=== PATIENT | male | born 1950 | race Caucasian/White ===

== ENCOUNTER → 2020-07-07 14:09 | Outpatient (BNVA) | payer MEDICARE, MEDICAID, SELFPAY | PROVIDERS: Family Provider Nurse Practitioner Family; PCP Nurse Practitioner Family; Visit Provider Urology | DX: R97.20 Elevated prostate specific antigen [PSA] (principal); R31.0 Gross hematuria | CPT/HCPCS: 81001; 84153 ==

== ENCOUNTER 2020-07-16 15:49 | Outpatient (CLI) | payer MEDICARE, MEDICAID, SELFPAY ==
[2020-07-16 16:26] LABS: Basophils % 0.4 %; Eosinophils # 0.2 10^3/uL (0.0-0.8); Eosinophils % 1.9 %; Hematocrit 44.2 % (42.0-52.0); Hemoglobin 14.7 g/dL (11.7-16.6); Lymphocytes # 3.1 10^3/uL (0.8-4.8); Lymphocytes % 27.5 %; Mean Corpuscular HGB Conc 33.3 g/dL (30.0-36.0); Mean Corpuscular Hemoglobin 31.5 pg (28.0-34.0); Mean Corpuscular Volume 94.8 fL (80-94); Mean Platelet Volume 10.2 fL (7.4-10.4); Monocytes # 0.9 10^3/uL (0.2-0.9); Monocytes % 7.7 %; Neutrophils # 7.06 10^3/uL (1.8-7.7); Neutrophils % 62.1 %; Nucleated Red Blood Cells % 0 %; Platelet Count 331 10^3/cmm (130-400); Red Blood Count 4.66 10^6/uL (4.1-5.3); Red Cell Distribution Width 12.8 % (12.1-15.1); White Blood Count 11.4 10^3/uL (4.0-10.0)
[2020-07-16 16:57] LABS: Alanine Aminotransferase 14 U/L (0-41); Albumin Level 4.3 g/dL (3.5-5.2); Alkaline Phosphatase 53 IU/L (40-130); Anion Gap 16.2 (5-19); Aspartate Amino Transferase 12 U/L (0-40); Blood Urea Nitrogen 17 mg/dL (8-23); Calcium 8.8 mg/dL (8.5-10.5); Carbon Dioxide 22 mmol/L (22-29); Chloride 104 mmol/L (98-107); Globulin 2.5 g/dL (1.3-4.6); Glomerular Filtration Rate 84.2 mL/min (90-130); Glucose 119 mg/dL (65-115); Osmolality Calculated 284 mOsm/kg (285-295); Potassium 4.2 mmol/L (3.5-5.1); Sodium 138 mmol/L (136-145); Thyroid Stimulating Hormone 3.33 uIU/mL (0.27-4.20); Total Bilirubin 0.2 mg/dL (0.15-1.2); Total Protein 6.8 g/dL (6.6-8.7)
== END 2020-07-16 15:50 | disposition home or self-care (01) ==
LOC: LAB 15:51
PROVIDERS: PCP Nurse Practitioner Family; Visit Provider Nurse Practitioner Family
DX: J44.9 Chronic obstructive pulmonary disease, unspecified (principal)
CPT/HCPCS: 80053; 84443; 85025

== ENCOUNTER 2020-09-02 15:50 | Outpatient (CLI) | payer MEDICARE, MEDICAID, SELFPAY ==
[2020-09-02 16:18] LABS: Basophils # 0.1 10^3/uL (0.0-0.1); Basophils % 0.5 %; Eosinophils # 0.2 10^3/uL (0.0-0.8); Eosinophils % 1.7 %; Hematocrit 49.1 % (42.0-52.0); Hemoglobin 16.1 g/dL (11.7-16.6); Lymphocytes # 3.7 10^3/uL (0.8-4.8); Lymphocytes % 29.8 %; Mean Corpuscular HGB Conc 32.8 g/dL (30.0-36.0); Mean Corpuscular Hemoglobin 31.5 pg (28.0-34.0); Mean Corpuscular Volume 96.1 fL (80-94); Mean Platelet Volume 10.8 fL (7.4-10.4); Monocytes # 0.9 10^3/uL (0.2-0.9); Monocytes % 7.4 %; Nucleated Red Blood Cells % 0 %; Platelet Count 299 10^3/cmm (130-400); Red Blood Count 5.11 10^6/uL (4.1-5.3); Red Cell Distribution Width 12.9 % (12.1-15.1); White Blood Count 12.5 10^3/uL (4.0-10.0)
[2020-09-02 17:30] LABS: Estmated Average Glucose 105; Hemoglobin A1C 5.3 % (4.0-6.0)
[2020-09-02 20:10] LABS: Anion Gap 22.4 (5-19); Blood Urea Nitrogen 12 mg/dL (8-23); Carbon Dioxide 21 mmol/L (22-29); Chloride 101 mmol/L (98-107); Chol HDL Ratio 2.74 mg/dL (1.0-5.00); Cholesterol 137 mg/dL (0-200); Glomerular Filtration Rate 66.6 mL/min (90-130); Glucose 113 mg/dL (65-115); HDL Cholesterol 50 mg/dL (60-100); LDL Cholesterol Calculated 72 mg/dL (50-129); LDL HDL Ratio 1.44 RATIO (0.00-3.22); Osmolality Calculated 291 mOsm/kg (285-295); Potassium 4.4 mmol/L (3.5-5.1); Sodium 140 mmol/L (136-145); Thyroid Stimulating Hormone 4.65 uIU/mL (0.27-4.20); Triglycerides 74 mg/dL (0-150)
== END 2020-09-02 15:51 | disposition home or self-care (01) ==
LOC: LAB 15:54
PROVIDERS: PCP Nurse Practitioner Family; Visit Provider Nurse Practitioner Family
DX: R73.01 Impaired fasting glucose (principal); Z13.6 Encounter for screening for cardiovascular disorders; J44.9 Chronic obstructive pulmonary disease, unspecified
CPT/HCPCS: 80048; 80061; 83036; 84443; 85025

== ENCOUNTER 2020-09-11 14:15 | Outpatient (CLI) | payer MEDICARE, MEDICAID, SELFPAY ==
--- NOTE | 2020-09-11 14:22 | CT_ITS ---
WS: [id number] LDCT LUNG CANCER SCREENING TECHNIQUE: Noncontrast CT of the chest with coronal and sagittal reformatted images. CLINICAL INFORMATION: NICOTINE DEPENDENCE,CIGARETTES COMPARISON: CT chest May 11, 2018 DLP: 66.75 mGy.cm DIvol: 1.[address] scans at [facility] use at least one of these dose optimization techniques: automat ed exposure control; mA and/or kV adjustment per patient size (includes targeted exams where dose is matched to clinical indication); or iterative reconstruction. FINDINGS: Moderate to advanced chronic emphysematous changes. Subsegmental atelectasis in the lung bases. Fibro sis in the lung apices. Calcific granuloma left lower lobe. Slight tree-in-bud nodularity in the lung bases unchanged since 2018. Noncalcified nodule left lower lobe measuring 5 mm. Aortic calcification . No mediastinal or hilar lymphadenopathy. Left hepatic cysts. CT/CT lung screening [id number] IMPRESSION: LUNG-RADS: 2-Benign Appearance or Behavior FOLLOW UP: 12 Month: Continue annual screening with LDCT
== END 2020-09-11 14:16 | disposition home or self-care (01) ==
LOC: RAD 14:21
PROVIDERS: PCP Nurse Practitioner Family; Visit Provider Nurse Practitioner Family
DX: Z12.2 Encounter for screening for malignant neoplasm of respiratory organs (principal); F17.210 Nicotine dependence, cigarettes, uncomplicated
CPT/HCPCS: G0297

== ENCOUNTER → 2021-03-04 14:31 | Outpatient (BNVA) | payer MEDICARE, MEDICAID, SELFPAY | PROVIDERS: PCP Nurse Practitioner Family; Visit Provider Internal Medicine Critical Care Medicine | DX: J44.9 Chronic obstructive pulmonary disease, unspecified (principal) | CPT/HCPCS: 87635 ==

== ENCOUNTER 2021-03-08 11:00 | Outpatient (CLI) | payer MEDICARE, MEDICAID, SELFPAY | END 2021-03-08 11:01 | disposition home or self-care (01) | LOC: SLEEP 03-09 12:48 | PROVIDERS: PCP Nurse Practitioner Family; Visit Provider Internal Medicine Critical Care Medicine | DX: J96.11 Chronic respiratory failure with hypoxia (principal); J44.9 Chronic obstructive pulmonary disease, unspecified | CPT/HCPCS: 94010; 94618; 94726; 94729; 94762 ==

== ENCOUNTER 2021-03-08 13:00 | Outpatient (CLI) | payer MEDICARE, MEDICAID, SELFPAY ==
--- NOTE | 2021-03-08 13:34 | PFTS_ITS ---
Date of Study:03/08/21 Date of Dictation: MECHANICS: Forced vital capacity (FVC) is reduced. Forced expiratory volume in one second (FEV1) is reduced. FEV1/FVC is reduced. FLOW VOLUME LOOP: Reduced flow at all lung volumes with significant scooping. LUNG VOLUMES: Total lung capacity (TLC) is normal. Residual volume (RV) is increased. DIFFUSING CAPACITY FOR CARBON MONOXIDE: Severely reduced. INTERPRETATION: The pulmonary function tests are consistent with very severe airflow obstruction. No postbronchodilator spirometry was performed. Lung volumes are consistent with air trapping. Gas exchange (DLCO) is severely reduced. MTDD
[2021-03-08 13:36] VITALS: BP 136/92
== END 2021-03-08 13:01 | disposition home or self-care (01) ==
LOC: RT 13:01
PROVIDERS: PCP Nurse Practitioner Family; Visit Provider Internal Medicine Critical Care Medicine
DX: J96.11 Chronic respiratory failure with hypoxia (principal); J44.9 Chronic obstructive pulmonary disease, unspecified
CPT/HCPCS: 94010; 94618; 94726; 94729

== ENCOUNTER → 2021-04-14 14:08 | Outpatient (BNVA) | payer MEDICARE, MEDICAID, SELFPAY | PROVIDERS: PCP Nurse Practitioner Family; Visit Provider Urology | DX: N40.0 Benign prostatic hyperplasia without lower urinary tract symptoms (principal); R97.20 Elevated prostate specific antigen [PSA] | CPT/HCPCS: 81003 ==

== ENCOUNTER → 2022-02-02 14:15 | Outpatient (BNVA) | payer MEDICARE, MEDICAID, SELFPAY | PROVIDERS: PCP Nurse Practitioner Family; Visit Provider Internal Medicine Critical Care Medicine | DX: J44.9 Chronic obstructive pulmonary disease, unspecified (principal); J96.11 Chronic respiratory failure with hypoxia; F17.210 Nicotine dependence, cigarettes, uncomplicated | CPT/HCPCS: 99213 ==

== ENCOUNTER → 2022-04-19 14:19 | Outpatient (BNVA) | payer MEDICARE, MEDICAID, SELFPAY | PROVIDERS: PCP Nurse Practitioner Family; Visit Provider Urology | DX: R97.20 Elevated prostate specific antigen [PSA] (principal) | CPT/HCPCS: 99213 ==

== ENCOUNTER 2022-04-22 11:27 | Outpatient (CLI) | payer MEDICARE, MEDICAID, SELFPAY ==
--- NOTE | 2022-04-22 11:36 | CT_ITS ---
WS: [id number] LDCT LUNG CANCER SCREENING TECHNIQUE: Noncontrast CT of the chest with coronal and sagittal reformatted images. CLINICAL INFORMATION: NICOTINE DEPENDENCE,CIGARETTES COMPARISON: September 11, 2020 DLP: 88.29 mGy.cm DIvol: Mean CTDIvol: 1.60 (mGy) All CT scans at [facility] use at least one of these dose optimization techniques: automat ed exposure control; mA and/or kV adjustment per patient size (includes targeted exams where dose is matched to clinical indication); or iterative reconstruction. FINDINGS: Moderate to advanced chronic emphysematous changes unchanged from previous. Subsegmental atelectasis in the lung bases. Fibrosis in the lung apices. Calcific granuloma left lower lobe. Slight tree-in-bud nodularity in the lung bases unchanged. Noncal cified nodule left lower lobe measuring 5 mm. Mild bronchiectasis more prominent in the lung bases i s unchanged. Normal caliber thoracic aorta. Aortic calcification. No mediastinal or hilar lymphadenopathy. Calcifi ed pretracheal lymph nodes. Normal caliber descending thoracic aorta. Adrenal glands are normal. Normal GE junction. Hepatic cysts liver dome similar to previous. CT/CT lung screening [id number] IMPRESSION: LUNG-RADS: 2-Benign Appearance or Behavior FOLLOW UP: 12 Month: Continue annual screening with LDCT
== END 2022-04-22 11:28 | disposition home or self-care (01) ==
LOC: RAD 11:29
PROVIDERS: PCP Nurse Practitioner Family; Visit Provider Nurse Practitioner Family
DX: Z12.2 Encounter for screening for malignant neoplasm of respiratory organs (principal); F17.210 Nicotine dependence, cigarettes, uncomplicated
CPT/HCPCS: 71271

== ENCOUNTER 2022-05-07 15:54 | Inpatient (IN) | payer MEDICARE, MEDICAID, SELFPAY ==
[2022-05-07] VITALS (10 sets, daily range): BP systolic 91–112; BP diastolic 53–85; PULSE 101–120; RESP 20–32; TEMP 36.7–36.8; O2SAT 94–98; BMI 16.3
--- NOTE | 2022-05-07 16:21 | XRR_ITS ---
PROCEDURE INFORMATION: Exam: XR Chest Exam date and time: 05/07/2022 4:44 PM Age: 71 years old Clinical indication: Cough and dyspnea; Additional info: Dyspnea/cough TECHNIQUE: Imaging protocol: Radiologic exam of the chest. Views: 1 view. COMPARISON: CT chest w con* [id number] 05/11/2018 9:18 AM FINDINGS: Lungs: Lung volumes are large consistent with known centrilobular emphysema. There is no consolidation. Pleural spaces: There is no pleural effusion or pneumothorax. Heart/Mediastinum: Cardiomediastinal contours are unremarkable. Bones/joints: Bones are unremarkable. XR/XR chest 1V portable [id number] IMPRESSION: No acute findings.
[2022-05-07 16:36] LABS: Basophils # 0.1 10^3/uL (0.0-0.1); Basophils % 0.3 %; Hematocrit 41.9 % (42.0-52.0); Hemoglobin 14.9 g/dL (11.7-16.6); Lymphocytes # 1.1 10^3/uL (0.8-4.8); Lymphocytes % 4.8 %; Mean Corpuscular HGB Conc 35.6 g/dL (30.0-36.0); Mean Corpuscular Hemoglobin 32.5 pg (28.0-34.0); Mean Corpuscular Volume 91.3 fl (80-94); Mean Platelet Volume 10.2 fL (7.4-10.4); Monocytes % 8.7 %; Neutrophils # 19.77 10^3/uL (1.8-7.7); Neutrophils % 85.5 %; Nucleated Red Blood Cells % 0 %; Platelet Count 269 10^3/cmm (130-400); Red Blood Count 4.59 10^6/uL (4.1-5.3); Red Cell Distribution Width 13.2 % (12.1-15.1); White Blood Count 23.2 10^3/uL (4.0-10.0)
--- NOTE | 2022-05-07 16:39 | W.ED.SOB ---
HPI - SOB/Dyspnea General: Chief Complaint: Shortness of Breath/Dyspnea Stated Complaint: SOB Time Seen by Provider: 05/07/22 15:58 Source: patient Mode of arrival: EMS Limitations: no limitations History of Present Illness: HPI Narrative: 71-year-old male presents emergency room with complaints of increasing shortness of breath the last few days. Not using oxygen usually at home but now has an oxygen deficit initially on arrival he is requiring several liters. He has a moderately productive cough slightly above baseline. He is a smoker. Denies any chest pain. MD elicited complaint: shortness of breath and cough Pertinent past history: COPD Timing: constant Severity: moderate Exacerbating factors: exertion and coughing Relieving factors: oxygen, rest and bronchodilators Known history of: COPD Associated symptoms: Deny abdominal pain, chest congestion, chest pain, cough, diaphoresis, dizziness, extremity pain, fever(s), hemoptysis, lightheadedness, myalgias, nausea, orthopnea, palpitations, paresthesias, polydipsia, polyuria, rash, sense of impending doom, syncope or vomiting Treatment prior to arrival: oxygen and bronchodilator Review of Systems Const: Reports: chills; Denies: fever(s), fatigue, malaise or diaphoresis ENMT: Denies: throat pain, ear or mastoid pain, nasal discharge or nasal congestion Card: Denies: chest pain, palpitations, lightheadedness, syncope or orthopnea Resp: Reports: dyspnea, non-productive cough and wheezing; Denies: hemoptysis or chest congestion GI: Denies: abdominal pain, nausea or vomiting : Denies: flank pain, difficulty urinating, dysuria, urinary frequency or urinary urgency Musc: Denies: extremity pain Skin/Breast: Denies: rash or pruritus Neuro: Denies: dizziness Endo: Denies: polyuria or polydipsia PFSH ED PFSH: Medical History (Updated 05/07/22 @ 19:08 by Werner Saldana MD) Abnormal weight loss BPH (benign prostatic hyperplasia) Chronic obstructive pulmonary disease Elevated PSA Chronically elevated PSA, normal OBDULIA. Multiple other comorbidities including severe lung disease. Has adamantly refused biopsy Enlarged prostate Hypothyroidism Lung nodule Nicotine dependence, cigarettes, with other nicotine-induced disorders Tachycardia Surgical History (Updated 05/07/22 @ 19:08 by Werner Saldana MD) History of lung biopsy S/P tonsillectomy Family History Mother , 75 Diabetes Father , 82 No problems noted. Social History Smoking and tobacco status: current every day smoker cigarettes Packs smoked per day: 0.5 Years cigarettes smoked: 50 [ Other cigarette details: Hx of 2 PPD x 50 Years, started at age 20] Alcohol intake: never Marital status: / Current occupational status: retired History of recent travel: No Physical Exam Const: GENERAL APPEARANCE: cooperative and comfortable ORIENTATION/CONSCIOUSNESS: Yes awake, Yes oriented to person, Yes oriented to place and Yes oriented to time HENMT: COMMON NORMALS: normocephalic, atraumatic and hearing grossly normal bilaterally HEAD & SCALP: normocephalic and atraumatic Resp: EFFORT & INSPECTION: Yes tachypneic, Yes pursed lip breathing, Yes labored and Yes uses accessory muscles AUSCULTATION: wheezes Cardio: COMMON NORMALS: regular rate, regular rhythm and No murmurs present (Cardio) RATE: regular rate RHYTHM: regular rhythm GI: COMMON NORMALS: Soft to palpation and No hepatosplenomegaly present AUSCULTATION: Yes normoactive bowel sounds PALPATION: Yes Soft to palpation, No Tenderness to palpation present (GI), No Guarding due to palpation present (GI) and Yes No hepatosplenomegaly present Extremity: COMMON NORMALS: normal to inspection, capillary refill normal, no clubbing, cyanosis or edema, no calf tenderness and no pedal edema Neuro: SENSORIUM/ORIENTATION: Yes oriented to person, Yes oriented to place and Yes oriented to time Skin: COMMON NORMALS: no rashes or lesions noted GENERAL SKIN EXAM: no rashes or lesions noted Course Vital Signs: Vital signs: Vital Signs Temperature 98.2 F 05/09/22 07:36 Pulse Rate 91 05/09/22 20:00 Respiratory Rate 18 05/09/22 19:56 Blood Pressure 119/75 05/09/22 12:00 Pulse Oximetry 94 05/09/22 19:56 MDM - SOB/Dyspnea Medical Decision Making Patient still requiring oxygen he did get significantly better with nebulizer. He has purulent sputum and white count of 22,000 although the chest x-ray appears to be mostly normal we will go ahead and admit for exacerbation of COPD and hypoxic respiratory failure now needing oxygen started on antibiotics blacksed Dr. Saldana orders written. Medical Records I reviewed the patient's medical records. Lab Data I reviewed the patient's lab results. : 05/08/22 04:35 05/08/22 04:35 Labs/Radiology: Radiology Impressions Chest X-Ray 05/07/22 16:21 IMPRESSION: No acute findings. Chest CTA 05/07/22 18:33 IMPRESSION: 1. No pulmonary embolism. 2. Probably chronic bilateral lower lobe bronchitis. 3. Severe centrilobular emphysema. 4. Irregular 12 mm left upper lobe pulmonary nodule, new since 09/11/2020. Highly suspicious nodule. Consider non-emergent PET/CT, or tissue sampling.(Reference: Pinky) REFERENCES: Pinky Gaspar, et al. Guidelines for Management of Incidental Pulmonary Nodules Detected on CT Images: From the Fleischner Society 2017. Radiology. 2017;284(1):228-243. Laboratory Results WBC 23.2 10^3/uL (4.0-10.0) H 05/07/22 16:10 RBC 4.59 10^6/uL (4.1-5.3) 05/07/22 16:10 Hgb 14.9 g/dL (11.7-16.6) 05/07/22 16:10 Hct 41.9 % (42.0-52.0) L 05/07/22 16:10 MCV 91.3 fl (80-94) 05/07/22 16:10 MCH 32.5 pg (28.0-34.0) 05/07/22 16:10 MCHC 35.6 g/dL (30.0-36.0) 05/07/22 16:10 RDW 13.2 % (12.1-15.1) 05/07/22 16:10 Plt Count 269 10^3/cmm (130-400) 05/07/22 16:10 MPV 10.2 fL (7.4-10.4) 05/07/22 16:10 Neut % (Auto) 85.5 % 05/07/22 16:10 Lymph % (Auto) 4.8 % 05/07/22 16:10 Robertson % (Auto) 8.7 % 05/07/22 16:10 Eos % (Auto) 0.0 % 05/07/22 16:10 Baso % (Auto) 0.3 % 05/07/22 16:10 Neut # (Auto) 19.77 10^3/uL (1.8-7.7) H 05/07/22 16:10 Lymph # (Auto) 1.1 10^3/uL (0.8-4.8) 05/07/22 16:10 Robertson # (Auto) 2.0 10^3/uL (0.2-0.9) H 05/07/22 16:10 Eos # (Auto) 0.0 10^3/uL (0.0-0.8) 05/07/22 16:10 Baso # (Auto) 0.1 10^3/uL (0.0-0.1) 05/07/22 16:10 Nucleated RBC % (auto) 0 % 05/07/22 16:10 Nucleated RBCs # 0.0 /100WBC 05/07/22 16:10 D-Dimer 0.29 ug/mIFEU (0-0.59) 05/07/22 16:10 Sodium 133 mmol/L (136-145) L 05/07/22 16:10 Potassium 4.4 mmol/L (3.5-5.1) 05/07/22 16:10 Chloride 97 mmol/L (98-107) L 05/07/22 16:10 Carbon Dioxide 17 mmol/L (22-29) L 05/07/22 16:10 Anion Gap 23.4 (5-19) H 05/07/22 16:10 BUN 17 mg/dL (8-23) 05/07/22 16:10 Creatinine 0.9 mg/dL (0.7-1.2) 05/07/22 16:10 GFR Calculation 83.7 mL/min (90-130) L 05/07/22 16:10 Glucose 103 mg/dL (65-115) 05/07/22 16:10 Calculated Osmolality 278 mOsm/kg (285-295) L 05/07/22 16:10 Calcium 8.8 mg/dL (8.5-10.5) 05/07/22 16:10 Iron 17 ug/dL (59-158) L 05/07/22 16:10 TIBC 220 mcg/dl 05/07/22 16:10 % Saturation 7.7 % (20-50) L 05/07/22 16:10 Unsat Iron Binding 203 ug/dL (112-347) 05/07/22 16:10 Total Bilirubin 0.8 mg/dL (0.15-1.2) 05/07/22 16:10 AST 11 U/L (0-40) 05/07/22 16:10 ALT 9 U/L (0-41) 05/07/22 16:10 Alkaline Phosphatase 63 IU/L (40-130) 05/07/22 16:10 C-Reactive Protein 132.3 mg/L (0.0-4.9) H 05/07/22 16:10 NT-Pro-B Natriuret Pep 770 pg/mL (0-125) H 05/07/22 16:10 Total Protein 7.4 g/dL (6.6-8.7) 05/07/22 16:10 Albumin 3.9 g/dL (3.5-5.2) 05/07/22 16:10 Globulin 3.5 g/dL (1.3-4.6) 05/07/22 16:10 Procalcitonin 0.22 ng/mL (0-0.5) 05/07/22 16:10 TSH 2.38 uIU/mL (0.27-4.20) 05/07/22 16:10 Discharge Plan Discharge Patient Disposition: Admitted As Inpatient Admit Provider: Werner Saldana Clinical Impression: Acute exacerbation of chronic obstructive airways disease, Chronic respiratory failure with hypoxia Condition: Stable Coding Level of Care Code ED Cable Television Technician for Chg Fwd Exam Detailed
[2022-05-07 16:47] LABS: Alanine Aminotransferase 9 U/L (0-41); Albumin Level 3.9 g/dL (3.5-5.2); Alkaline Phosphatase 63 IU/L (40-130); Anion Gap 23.4 (5-19); Aspartate Amino Transferase 11 U/L (0-40); Blood Urea Nitrogen 17 mg/dL (8-23); Calcium 8.8 mg/dL (8.5-10.5); Carbon Dioxide 17 mmol/L (22-29); Chloride 97 mmol/L (98-107); Globulin 3.5 g/dL (1.3-4.6); Glomerular Filtration Rate 83.7 mL/min (90-130); Glucose 103 mg/dL (65-115); Osmolality Calculated 278 mOsm/kg (285-295); Potassium 4.4 mmol/L (3.5-5.1); Sodium 133 mmol/L (136-145); Total Bilirubin 0.8 mg/dL (0.15-1.2); Total Protein 7.4 g/dL (6.6-8.7)
--- NOTE | 2022-05-07 16:58 | ECG_ITS ---
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 Measurements Intervals Shedd Rate: P: AR: QRS: QRSD: T: QT: QTc: Interpretive Statements Sinus tachycardia WARNING: DATA QUALITY MAY AFFECT INTERPRETATION No previous ECG available for comparison Electronically Signed On 05-08-2022 13:02:58 CDT by Brandi Andersen M.D. [email or web address]
[2022-05-07] MEDS: ipratropium-albuterol 3 mL Neb INHALATION (16:59)
[2022-05-07 17:38] LABS: ABG PCO2 33.4 mmHg (35-45); ABG PH Result 7.41 (7.35-7.45); Alveolar-Arterial Oxygen Gradi 4.2 mmHg (5-10); Arterial Blood Gas Hematocrit 46.7 % (42-52); Base Excess ABG -2.6 mmol/L (-2.0-2.0); Blood Gas Allen Test Pos; Blood Gas Sample Site Radial, right; Blood Gas Sample Type Arterial; HCO3 ABG 21.2 mmol/L (22-26); Ionized Calcium Level - ABG 1.2 mmol/L (1.1-1.4); Methemoglobin 0.4 % (0.4-1.5); Oxygen Device NC; Oxygen Saturation ABG 96.3; PO2 ABG 75.2 mmHg (80.0-100.0); Potassium Level - ABG 4.2 mmol/L (3.5-5.0); Total Hemoglobin 15.2 g/dL (14-18)
[2022-05-07] MEDS: levofloxacin-dextrose 5 % 750 MG/150 ML PREMIX 100 MG IV (17:56)
--- NOTE | 2022-05-07 18:33 | CTR_ITS ---
PROCEDURE INFORMATION: Exam: CTA Chest With Contrast Exam date and time: 05/07/2022 6:59 PM Age: 71 years old Clinical indication: Shortness of breath; Additional info: SOB TECHNIQUE: Imaging protocol: Computed tomographic angiography of the chest with contrast. 3D rendering (Not supervised by radiologist): MIP and/or 3D reconstructed images were created by the technologist. Radiation optimization: All CT scans at this facility use at least one of these dose optimization techniques: automated exposure control; mA and/or kV adjustment per patient size (includes targeted exams where dose is matched to clinical indication); or iterative reconstruction. Contrast material: VISIPAQUE 320; Contrast volume: 83 ml; Contrast route: INTRAVENOUS (IV); COMPARISON: 1. CT chest w con* [id number] 05/11/2018 9:[address] lung screening [id number] 09/11/2020 2:[address] lung screening [id number] 04/22/2022 11:45 AM RADIATION DOSE METRICS: Total DLP (mGy-cm): 440.15 FINDINGS: Pulmonary arteries: The pulmonary arteries are adequately opacified for evaluation to the subsegmental level. There is no filling defect to suggest embolism. There is relative hypoperfusion of the left lower lobe. Aorta: There is mild aortic atherosclerotic disease. Lungs: There is severe upper lung predominant centrilobular emphysema. There is bronchiectasis and bronchial wall thickening in the lower lobes bilaterally. There is mild subpleural reticulonodular opacity in both lower lobes which is a chronic finding unchanged since 2018. There is an irregular 12 mm pulmonary nodule with adjacent pulmonary parenchymal architectural distortion in the left upper lobe, stable since 04/22/2022 and new since 09/11/2020. Pleural spaces: Unremarkable. No pneumothorax. No pleural effusion. Heart: Heart size is normal. There is no pericardial effusion. Lymph nodes: There is no mediastinal or hilar lymphadenopathy. Intraperitoneal space: Visible structures in the upper abdomen are unremarkable. Bones/joints: Bones are unremarkable. Soft tissues: The extrathoracic soft tissues are unremarkable. CT/CT angio chest PE protcl [id number] IMPRESSION: 1. No pulmonary embolism. 2. Probably chronic bilateral lower lobe bronchitis. 3. Severe centrilobular emphysema. 4. Irregular 12 mm left upper lobe pulmonary nodule, new since 09/11/2020. Highly suspicious nodule. Consider non-emergent PET/CT, or tissue sampling.(Reference: Pinky) REFERENCES: Pinky Gaspar, et al. Guidelines for Management of Incidental Pulmonary Nodules Detected on CT Images: From the Fleischner Society 2017. Radiology. 2017;284(1):228-243.
[2022-05-07] MEDS: famotidine 20 mg/2 mL INJ IVP (18:45)
[2022-05-07] MEDS: hydrocortisone 100 mg/2 mL SDV IVP (18:53)
[2022-05-07] MEDS: diphenhydrAMINE 50 mg/mL SDV 1mL IVP (18:53)
[2022-05-07 18:55] LABS: D Dimer 0.29 ug/mIFEU (0-0.59)
[2022-05-07] MEDS: iodixanol 320 mg/mL 100mL Btl IV (19:04)
--- NOTE | 2022-05-07 19:06 | PC.NURSE ---
1830 Report had been called, in patient physician came to see patient and additional orders noted. Patient pre-medicated with solu cortef, pepcid and benadryl. 1904 updated report called to MED/Surg 1910 To floor via cart. oxygen on at 2lpm via la
--- NOTE | 2022-05-07 19:07 | PM.HP ---
Providers/Chief Complaint Admitting Physician: Werner Saldana MD Primary Care Provider: ALESSANDRA Sofia Chief Complaint: SOB History of Present Illness Flavio Villareal is a 71 year old male with past medical history of COPD not on chronic oxygen who presented to the ER today because of having difficulty in breathing, increasing cough for last 3 days. Patient states he is usually coughs on a daily basis but for last 3 days his cough has been increasing along with increasing thick mucus expectoration causing him to have vomiting and nausea. Patient denies of having any sick contacts. States he has been having subjective feels of fever at home as well. States he is usually not admitted to the hospital for COPD but has been using extra inhalers for difficulty in breathing for last 3 days. Patient states she has been vaccinated for COVID-19 with booster with last shot late last year in 2020. In the ER he was found to be hypoxic so placed on oxygen. Currently on 2 to 3 L satting 97%. Review of Systems General: Reports: 10 or more systems reviewed and unremarkable except in HPI and below Const: Denies: fever(s), chills, body aches, change in appetite, change in weight, malaise, night sweats, diaphoresis, change in sleep pattern, daytime sleepiness or snoring Eyes: Denies: change in vision, blurry vision, photophobia, eye discomfort or eye discharge ENMT: Denies: throat pain, enlarged tonsils, hoarseness, mouth pain, oral sores, dry mouth, tinnitus, nasal congestion or post nasal drip Card: Denies: chest pain, palpitations, irregular heart rhythm, edema, swelling of feet/ankles, lightheadedness, syncope, pre-syncope, dyspnea on exertion, orthopnea, leg pain with exertion or acrocyanosis Resp: Denies: dyspnea, productive cough, non-productive cough, wheezing, stridor, pain on inspiration, change in phlegm color, hemoptysis or chest congestion GI: Denies: abdominal pain, nausea, vomiting, hematemesis, coffee ground emesis, dysphagia, heartburn, diarrhea, constipation, bloating, GI cramping, change in bowel habits, pain on defecation, hematochezia or melena : Denies: flank pain, difficulty urinating, dysuria, urinary frequency, urinary urgency, urinary hesitancy, urinary dribbling, difficulty starting urination, change in urine stream, nocturia or hematuria Musc: Denies: neck pain, back pain, extremity pain, joint pain, joint swelling, joint redness, joint stiffness or limited range of motion Neuro: Denies: headache(s), numbness in extremities, weakness in extremities, sensory changes, lack of coordination, difficulty walking, frequent falls, dizziness, vertigo, confusion, Slurred speech present, difficulty communicating thoughts or seizure-like activity Psych: Denies: anxiety, depression, mood swings, panic attacks, hopelessness or irritability Endo: Denies: polyuria, polydipsia, tired all the time, cold intolerance, excessive sweating, flushing or heat intolerance Joseph/Lymph: Denies: easy bruising or easy bleeding All/Imm: Denies: tongue swelling, facial swelling or acute wheezing Medications/Allergies Home Medications Medication Instructions Recorded Confirmed Last Taken Type budesonide 0.5 mg/2 mL suspension 0.5 mg (2 mL) INHALATION BID #120 06/21/21 05/07/22 05/07/22 Rx for nebulization ml montelukast 10 mg tablet 10 mg PO DAILY #30 tab 06/21/21 05/07/22 05/07/22 Rx ipratropium 0.5 mg-albuterol 3 mg 3 ml INHALATION QID #360 ml 08/27/21 05/07/22 05/07/22 Rx (2.5 mg base)/3 mL nebulization soln albuterol sulfate 90 mcg/actuation 2 puff INHALATION Q4H PRN #8.5 g 12/29/21 05/07/22 05/07/22 Rx aerosol inhaler (Ventolin HFA) budesonide-formoterol HFA 160 2 puff INHALATION BID 05/07/22 05/07/22 05/07/22 History mcg-4.5 mcg/actuation aerosol inhaler (Symbicort) finasteride 5 mg tablet 5 mg PO DAILY 05/07/22 05/07/22 05/07/22 History Allergies Allergy/AdvReac Type Severity Reaction Status Date / Time Iodinated Contrast Media Allergy NA Verified 05/07/22 17:09 PFSH Acute PFSH: Medical History (Updated 05/07/22 @ 19:08 by Werner Saldana MD) Abnormal weight loss BPH (benign prostatic hyperplasia) Chronic obstructive pulmonary disease Elevated PSA Chronically elevated PSA, normal OBDULIA. Multiple other comorbidities including severe lung disease. Has adamantly refused biopsy Enlarged prostate Hypothyroidism Lung nodule Nicotine dependence, cigarettes, with other nicotine-induced disorders Tachycardia Surgical History (Updated 05/07/22 @ 19:08 by Werner Saldana MD) History of lung biopsy S/P tonsillectomy Family History Mother , 75 Diabetes Father , 82 No problems noted. Social History Smoking and tobacco status: current every day smoker cigarettes Packs smoked per day: 0.5 Years cigarettes smoked: 50 [ Other cigarette details: Hx of 2 PPD x 50 Years, started at age 20] Alcohol intake: never Marital status: / Current occupational status: retired History of recent travel: No Vitals/I&O/Wt Last Vital Signs Temp 98.2 F 05/07/22 15:54 Pulse 106 H 05/07/22 18:30 Resp 20 H 05/07/22 18:30 BP 104/82 05/07/22 18:30 Pulse Ox 97 05/07/22 18:30 Weight last 48 hrs Weight 53.07 kg Physical Exam Narrative: General: No acute distress, AO x3, cachectic HEENT: PERRLA, pupils bilaterally equal and reactive Chest: Bilateral bronchial breath sounds, rhonchi all over the lung christie, equal good air entry bilaterally CVS: S1-S2 regular, no murmurs, no tachycardia, no gallops, no rubs Abdomen: Soft, nontender, no organomegaly, bowel sounds present Neuro: No focal deficits, no facial deformity, AO x3, power 5/5 in all limbs Data : 05/07/22 16:10 05/07/22 16:10 Micro: Microbiology 05/07/22 17:40 Blood Culture - Preliminary Blood SPECIMEN COLLECTED 05/07/22 17:30 Blood Culture - Preliminary Blood SPECIMEN COLLECTED A&P Assessment and plan (1) Chronic respiratory failure with hypoxia: Status: Acute (2) Acute exacerbation of chronic obstructive airways disease: Status: Acute Plan Acute on chronic hypoxic respiratory failure secondary to COPD exacerbation: Cannot rule out underlying pneumonia. Sputum culture, blood culture, urine Legionella, bacterial antigen, flu swab, COVID-19 PCR, MRSA swab For now start patient on oral Levaquin. CT to rule out consolidation. Solu-Medrol 40 mg every 8 hourly. DuoNeb 6-hour, desonide twice daily. Keep saturation over 88%. Continue the chronic medications. Analgesia: Tylenol as needed Glycemic control: Not needed Nutrition: Regular diet CODE STATUS: Discussed in detail with the patient. DNR/DNI. PUD prophylaxis: Famotidine DVT prophylaxis: Heparin 5000 every 12 hourly. Admit to [facility]. Attestations Medical Necessity Statement*: Admission for more than 2 midnights for management of acute hypoxic respiratory failure secondary to COPD exacerbation while pneumonia is ruled out. Time Spent in Patient Care: Greater than 35 minutes Coding Level of Care Code Acute Vice President Of Finance for Amaya Norris Diagnoses Chronic respiratory failure with hypoxia J96.11 Acute exacerbation of chronic obstructive airways disease J44.1
[2022-05-07 19:10] LABS: NT Pro B Type Natriuretic Pept 770 pg/mL (0-125); Procalcitonin 0.22 ng/mL (0-0.5)
[2022-05-07 19:20] LABS: Iron 17 ug/dL (59-158); Percent Saturation 7.7 % (20-50); Total Iron Binding Capacity 220 mcg/dl; Unsaturated Iron Binding 203 ug/dL (112-347)
[2022-05-07 20:11] LABS: C Reactive Protein 132.3 mg/L (0.0-4.9); Thyroid Stimulating Hormone 2.38 uIU/mL (0.27-4.20)
[2022-05-07] MEDS: ALPRAZolam 0.5 mg Tablet PO (20:31)
[2022-05-07] MEDS: benzonatate 100 mg Capsule PO (20:31)
[2022-05-07] MEDS: heparin 5,000 unit/mL INJ 1 mL 5000 UNIT SUBCUT (20:31)
[2022-05-07] MEDS: sodium chloride 0.9% 1,000 ML 100 ML IV (20:32)
[2022-05-07 20:46] LABS: Influenza A by IFA Negative (Negative); Influenza B by IFA Negative (Negative)
[2022-05-07] MEDS: cefTRIAXone 1,000 MG in sodium chloride 0.9% (plus) 50 ML 100 MG IV (21:35)
[2022-05-07 22:43] LABS: Potassium, Radom Urine 81 mmol/L; Urine Creatinine 117 mg/dL (39-259); Urine Random Chloride 35 mmol/L
[2022-05-07 22:45] LABS: Urine Random Sodium 19 mmol/L
[2022-05-07 22:46] LABS: Add Urine Microscopic? YES; Bilirubin Urine Neg (Negative); Blood Urine 3+ (Negative); Glucose Urine UA Norm (Normal); Ketones Urine 1+ (Negative); Leukocyte Esterase Urine Negative (Negative); Nitrate Urine Negative (Negative); Protein Urine 1+ (Negative); Specific Gravity, Urine 1.015 (1.005-1.030); Urine Appearance Clear (CLEAR); Urine Color Yellow (Yellow); Urobilinogen Urine 1 mg/dL (Negative); pH Urine 6.5 (5-7)
[2022-05-07 22:47] LABS: Add Urine Culture? No; Bacteria Urine TRACE /hpf; Mucus Urine 1+ /hpf; Squamous Epithelial Cell Urine 0-4 /hpf (0-5); WBC Urine 0-4 /hpf (0-5)
--- NOTE | 2022-05-07 23:00 | PC.NURSE ---
Upon arriving to the floor from the ED, patient c/o shortness of breath and appeared to be very anxious. Dr. Pierson notified. Xanax x1 ordered. Patient had two inhalers at bedside that he was wanting to use. Patient was educated not to use home medications while in the hospital. Inhalers placed in Pyxis. RT notified. Patient's oxygen saturation 98 percent on 2 L NC. Patient transitioned to room air.
[2022-05-07 23:11] LABS: Adenovirus Not Detected (NOT DETECT); Chlamydia Pneumoniae Not Detected (NOT DETECT); Coronavirus 229E,HKU1,NL63,OC4 Not Detected (NOT DETECT); Human Metapneumovirus Not Detected (NOT DETECT); Human Rhinovirus/Enterovirus Not Detected (NOT DETECT); Influenza A Not Detected (NOT DETECT); Influenza A H1 Not Detected (NOT DETECT); Influenza A H1-2009 Not Detected (NOT DETECT); Influenza A H3 Not Detected (NOT DETECT); Influenza B Not Detected (NOT DETECT); Mycoplasma Pneumoniae Not Detected (NOT DETECT); Parainfluenza Virus Type 1 Not Detected (NOT DETECT); Parainfluenza Virus Type 2 Not Detected (NOT DETECT); Parainfluenza Virus Type 3 Not Detected (NOT DETECT); Parainfluenza Virus Type 4 Not Detected (NOT DETECT); Respiratory Syncytial Virus A Not Detected (NOT DETECT); Respiratory Syncytial Virus B Not Detected (NOT DETECT); SARS-COV-2 Not Detected (NOT DETECT)
[2022-05-08] VITALS (17 sets, daily range): BP systolic 95–116; BP diastolic 60–70; PULSE 73–95; RESP 18–32; TEMP 36.4–37; O2SAT 93–95
[2022-05-08] MEDS: sodium chloride 0.9% 1,000 ML 100 ML IV (00:22)
[2022-05-08] MEDS: levalbuterol 0.63 mg/3 mL Neb NEBULIZER ×2 (03:59→12:56)
[2022-05-08 05:16] LABS: Hemoglobin 13.9 g/dL (11.7-16.6); Lymphocytes # 0.6 10^3/uL (0.8-4.8); Lymphocytes % 5.8 %; Mean Corpuscular HGB Conc 34.8 g/dL (30.0-36.0); Mean Corpuscular Hemoglobin 32.3 pg (28.0-34.0); Mean Corpuscular Volume 92.8 fl (80-94); Mean Platelet Volume 10.3 fL (7.4-10.4); Monocytes # 0.2 10^3/uL (0.2-0.9); Monocytes % 2.5 %; Neutrophils # 8.79 10^3/uL (1.8-7.7); Neutrophils % 91.2 %; Nucleated Red Blood Cells % 0 %; Platelet Count 223 10^3/cmm (130-400); Red Blood Count 4.31 10^6/uL (4.1-5.3); Red Cell Distribution Width 13.2 % (12.1-15.1); White Blood Count 9.6 10^3/uL (4.0-10.0)
[2022-05-08 05:43] LABS: Alanine Aminotransferase 10 U/L (0-41); Albumin Level 3.4 g/dL (3.5-5.2); Alkaline Phosphatase 80 IU/L (40-130); Blood Urea Nitrogen 16 mg/dL (8-23); Calcium 8.3 mg/dL (8.5-10.5); Carbon Dioxide 23 mmol/L (22-29); Chloride 101 mmol/L (98-107); Chol HDL Ratio 2.24 mg/dL (1.0-5.00); Cholesterol 114 mg/dL (0-200); Globulin 3.3 g/dL (1.3-4.6); Glomerular Filtration Rate 95.8 mL/min (90-130); Glucose 132 mg/dL (65-115); HDL Cholesterol 51 mg/dL (60-100); LDL Cholesterol Calculated 48 mg/dL (50-129); Osmolality Calculated 285 mOsm/kg (285-295); Sodium 136 mmol/L (136-145); Total Bilirubin 0.3 mg/dL (0.15-1.2); Total Protein 6.7 g/dL (6.6-8.7); Triglycerides 73 mg/dL (0-150); VLDL Cholestrol Calculation 15 mg/dL (0-30)
[2022-05-08 05:50] LABS: Anion Gap 16.2 (5-19); Aspartate Amino Transferase 15 U/L (0-40); Potassium 4.2 mmol/L (3.5-5.1)
[2022-05-08 05:56] LABS: Estmated Average Glucose 105; Hemoglobin A1C 5.3 % (4.0-6.0)
[2022-05-08] MEDS: famotidine 20 mg/2 mL INJ IVP ×2 (05:56→18:34)
[2022-05-08] MEDS: levoFLOXacin 750 mg Tablet PO (05:56)
[2022-05-08] MEDS: heparin 5,000 unit/mL INJ 1 mL 5000 UNIT SUBCUT ×2 (05:56→18:39)
[2022-05-08] MEDS: benzonatate 100 mg Capsule PO ×3 (08:37→21:56)
[2022-05-08] MEDS: ferrous gluconate 324 mg Tablet PO ×2 (08:37→18:35)
[2022-05-08] MEDS: ipratropium-albuterol 3 mL Neb INHALATION ×3 (08:37→20:02)
[2022-05-08] MEDS: budesonide 0.5 mg/2 mL Neb INHALATION ×2 (08:37→20:02)
[2022-05-08] MEDS: finasteride 5 mg Tablet PO (08:37)
--- NOTE | 2022-05-08 12:56 | P.PN_ITS ---
Subjective Subjective: No acute events overnight. Patient currently on room air. States he is feeling better. States mucus is improving as well. Denies any further vomiting. Has remained hemodynamically stable and afebrile. Vitals/I&O/Wt Last Vital Signs Temp 98.2 F 05/08/22 11:08 Pulse 89 05/08/22 11:08 Resp 18 05/08/22 11:08 BP 107/68 05/08/22 11:08 Pulse Ox 93 05/08/22 11:08 05/07/22 05/08/22 05/08/22 22:59 06:59 14:59 Intake Total 390 / 390 603.333 / 993.333 240 / 240 Output Total 150 / 150 150 / 300 125 / 125 Balance 240 / 240 453.333 / 693.333 115 / 115 Weight last 48 hrs Weight 50.712 kg Weight 53.07 kg Physical Exam Narrative: General: No acute distress, AO x3, cachectic HEENT: PERRLA, pupils bilaterally equal and reactive Chest: Bilateral bronchial breath sounds, rhonchi all over the lung christie, equal good air entry bilaterally CVS: S1-S2 regular, no murmurs, no tachycardia, no gallops, no rubs Abdomen: Soft, nontender, no organomegaly, bowel sounds present Neuro: No focal deficits, no facial deformity, AO x3, power 5/5 in all limbs Data : 05/08/22 04:35 05/08/22 04:35 Micro: Microbiology 05/07/22 18:30 Gram Stain - Final Sputum - Expectorated Sputum 05/07/22 20:50 MRSA Culture - Final Nose 05/07/22 22:15 Legionella Urinary Antigen - Final Urine,Voided 05/07/22 17:40 Blood Culture - Preliminary Blood SPECIMEN COLLECTED 05/07/22 17:30 Blood Culture - Preliminary Blood SPECIMEN COLLECTED A&P Assessment and plan (1) Chronic respiratory failure with hypoxia: Status: Acute (2) Acute exacerbation of chronic obstructive airways disease: Status: Acute Plan Acute on chronic hypoxic respiratory failure secondary to COPD exacerbation: Cannot rule out underlying pneumonia. MRSA negative, urine Legionella negative, flu swab of COVID-19 swab negative. Follow-up sputum and blood culture. Continue with oral Levaquin for at least [address] to rule out consolidation. Wean down Solu-Medrol to 40 mg IV daily and possibly to prednisone 40 mg from tomorrow morning. DuoNeb 6-hour, desonide twice daily. Flonase twice daily. Keep saturation over 88%. Continue the chronic medications. Left upper lobe pulmonary nodule: Patient states he recently had a CT scan at that time he did not have any lung nodule. Have advised him to follow-up with his outpatient organizational consultant Dr. Sahni within next 1 month for further evaluation. He states he already has an appointment with Dr. Sahni in for 22 May. Analgesia: Tylenol as needed Glycemic control: Not needed Nutrition: Regular diet CODE STATUS: Discussed in detail with the patient. DNR/DNI. PUD prophylaxis: Famotidine DVT prophylaxis: Heparin 5000 every 12 hourly. Admit to MedSur. Attestations Medical Necessity Statement*: Requires further hospitalization for management of acute on chronic hypoxic respiratory failure secondary to COPD exacerbation from acute bronchitis Time Spent in Patient Care: Greater than 35 minutes Coding Level of Care Code Acute Oliving Machine Operator for [facility] Myrna Diagnoses Chronic respiratory failure with hypoxia J96.11 Acute exacerbation of chronic obstructive airways disease J44.1
[2022-05-08] MEDS: fluticasone nasal spray 16gm Btl 1 SPRAY NASAL (18:34)
[2022-05-08 19:36] LABS: Eosinophil Urine No Eosinophils Seen; Urine Eosinophil Count 0 (0-0)
[2022-05-08] MEDS: cefTRIAXone 1,000 MG in sodium chloride 0.9% (plus) 50 ML 100 MG IV (21:56)
[2022-05-09] VITALS (14 sets, daily range): BP systolic 102–119; BP diastolic 57–75; PULSE 67–105; RESP 12–24; TEMP 36.4–37.1; O2SAT 90–95
[2022-05-09] MEDS: ipratropium-albuterol 3 mL Neb INHALATION ×5 (03:29→23:54)
[2022-05-09] MEDS: levoFLOXacin 750 mg Tablet PO (06:13)
[2022-05-09] MEDS: heparin 5,000 unit/mL INJ 1 mL 5000 UNIT SUBCUT ×2 (06:15→22:34)
[2022-05-09] MEDS: famotidine 20 mg/2 mL INJ IVP ×2 (06:38→22:34)
[2022-05-09] MEDS: budesonide 0.5 mg/2 mL Neb INHALATION ×2 (08:27→19:55)
[2022-05-09] MEDS: finasteride 5 mg Tablet PO (08:48)
[2022-05-09] MEDS: ferrous gluconate 324 mg Tablet PO ×2 (08:48→17:19)
[2022-05-09] MEDS: benzonatate 100 mg Capsule PO ×3 (08:49→22:34)
[2022-05-09] MEDS: fluticasone nasal spray 16gm Btl 1 SPRAY NASAL ×2 (08:49→17:20)
--- NOTE | 2022-05-09 11:12 | PC.CHAP ---
Pastoral Care Encounter/Spiritual Assessment Type of Contact [] Declined court manager visit [] Patient/Family/Request visit [] Outpatient visit [] Follow-up visit [] Physician referral [] Code/Alert [x] Routine visit [] Staff referral [] Actively dying [] Patient sleeping [] Family support [] [] Out of room [] Palliative care [] [] Receiving care in room [] Pre-surgical visit [] Trauma [] Long length of stay [] ICU visit [] Other: Relational/Emotional Strength [x] Patient feels connected with others/family/visitors/staff [] Distress [] Loneliness/isolation [] Abandonment Spirituality of Patient [x] Person of Essie [] Attends Religion of their Essie [x] Believes in Prayer [] Reads Bible or Jew materials [] There are Spiritual issues to be addressed Chief Design Branch Interventions [x] Prayer x[] Active listening []x Non-anxious presence []x Spiritual/emotional support [] Crisis/trauma care [] Spiritual counseling [] Bereavement support [] Provided bereavement packet [] Provided Bible/devotional materials [] Provided toy/stuffed animal, coloring book to patient or family member [] Provided Communion [] Anointing/[place] [] Salvation [x] Completed spiritual assessment [] Other: Impact on Illness or Injury [] Angry [] Fearful [] Anxious [] Often cries [] Exhaustion [] Unable to work [] Unable to attend evangelical [] Unable to walk/stand [] Unable to read [] Unable to drive [] Unable to eat/drink [] Unable to sleep [] Unable to be with family [] Patient intubated [] Other: Summary Time spent with patient 10 min
--- NOTE | 2022-05-09 12:40 | P.PN_ITS ---
Subjective Subjective: Seen this morning. Patient slightly appeared short of breath to me. No conversational dyspnea no acute distress but did look slightly winded. Patient stated he was a little short of breath but overall with better compared to before. Sputum culture growing strep pneumo. Sensitivities pending. Vitals/I&O/Wt Last Vital Signs Temp 98.2 F 05/09/22 07:36 Pulse 82 05/09/22 12:00 Resp 13 05/09/22 12:00 BP 119/75 05/09/22 12:00 Pulse Ox 92 05/09/22 12:00 05/08/22 05/09/22 05/09/22 22:59 06:59 14:59 Intake Total 410 / 1650 360 / 2010 120 / 120 Output Total 525 / 950 550 / 1500 Balance -115 / 700 -190 / 510 120 / 120 Weight last 48 hrs Weight 52.027 kg Weight 50.712 kg Weight 53.07 kg Physical Exam Narrative: General: No acute distress, AO x3, cachectic Chest: mild rhonchi throughout lung christie, good bilateral air entry CVS: S1-S2 regular, no murmurs, no tachycardia, no gallops, no rubs Abdomen: Soft, nontender, no organomegaly, bowel sounds present Neuro: No focal deficits, no facial deformity, AO x3, Data : 05/08/22 04:35 05/08/22 04:35 Micro: Microbiology 05/07/22 22:15 Bacterial Antigens - Final Urine Kidney 05/07/22 18:30 Gram Stain - Final Sputum - Expectorated Sputum Sputum Culture - Preliminary Streptococcus pneumoniae 05/07/22 17:40 Blood Culture - Preliminary Blood NEGATIVE TO DATE 05/07/22 17:30 Blood Culture - Preliminary Blood NEGATIVE TO DATE 05/07/22 20:50 MRSA Culture - Final Nose A&P Assessment and plan (1) Chronic respiratory failure with hypoxia: Status: Acute (2) Nicotine addiction: Status: Acute (3) Acute exacerbation of chronic obstructive airways disease: Status: Acute (4) Elevated PSA: Status: Acute Plan Acute on chronic hypoxic respiratory failure secondary to COPD exacerbation: Cannot rule out underlying pneumonia. MRSA negative, urine Legionella negative, flu swab of COVID-19 swab negative.? Follow-up sputum and blood culture.? Continue with oral Levaquin for at least 5 days now. Sputum culture growing strep pneumonia. Sensitivity pending. Continue on Solu- Medrol [address] ruled out consolidation Wean down Solu-Medrol to 40 mg IV daily and possibly to prednisone 40 mg from tomorrow morning. DuoNeb 6-hour, desonide twice daily.? Flonase twice daily. Patient saturating 92% on room air. Continue the chronic medications. Left upper lobe pulmonary nodule: Patient states he recently had a CT scan at that time he did not have any lung nodule.? Have advised him to follow-up with his outpatient firestopper installer Dr. Sahni within next 1 month for further evaluation.? He states he already has an appointment with Dr. Sahni in for 22 May. Analgesia: Tylenol as needed Glycemic control: Not needed Nutrition: Regular diet CODE STATUS: Discussed in detail with the patient.? DNR/DNI. PUD prophylaxis: Famotidine DVT prophylaxis: Heparin 5000 every 12 hourly. Admit to MedSur. Attestations Medical Necessity Statement*: Will need to wait for culture sensitivity of his sputum before discharge. Will send home on appropriate antibiotics. Will need to stay in the hospital tonight. 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
--- NOTE | 2022-05-09 21:09 | PC.NURSE ---
Addendum entered by Bharti Beltran RN 05/10/22 06:58: Dr. Wall notified, not Dr. Pierson. Original Note: Patient is upset because he is not getting his home Albuterol inhaler. He says that he hasn't gotten up since he has been in the hospital. He says eventually I'm going to have to get up to the toilet and I'm going to HAVE to have that inhaler when I get up. Per RT, patient is currently has three different nebulizers ordered. RT and I have both attempted to educate patient. Patient's home inhalers currently in Pyxis due to patient wanting to frequently using them. Dr. Pierson notified.
[2022-05-09] MEDS: cefTRIAXone 1,000 MG in sodium chloride 0.9% (plus) 50 ML 100 MG IV (22:34)
[2022-05-10] VITALS (11 sets, daily range): BP systolic 92–96; BP diastolic 51–61; PULSE 64–89; RESP 16–18; TEMP 36.4–37.1; O2SAT 87–98
[2022-05-10] MEDS: ipratropium-albuterol 3 mL Neb INHALATION ×3 (03:48→11:37)
[2022-05-10] MEDS: levoFLOXacin 750 mg Tablet PO (05:42)
[2022-05-10] MEDS: famotidine 20 mg/2 mL INJ IVP (05:42)
[2022-05-10] MEDS: finasteride 5 mg Tablet PO (07:50)
[2022-05-10] MEDS: heparin 5,000 unit/mL INJ 1 mL 5000 UNIT SUBCUT (07:50)
[2022-05-10] MEDS: ferrous gluconate 324 mg Tablet PO (07:50)
[2022-05-10] MEDS: benzonatate 100 mg Capsule PO (07:51)
[2022-05-10] MEDS: fluticasone nasal spray 16gm Btl 1 SPRAY NASAL (07:53)
[2022-05-10] MEDS: budesonide 0.5 mg/2 mL Neb INHALATION (07:54)
--- NOTE | 2022-05-10 08:39 | PM.DCS ---
Discharge Providers Date of Admission: 05/07/22 17:24 Date of Discharge: May 10, 2022 Attending Provider at Admission: Werner Saldana MD Attending Provider at Discharge: Carmen Wall MD Primary Care Provider: ALESSANDRA Sofia Diagnoses at Discharge Discharge Diagnosis (1) Chronic respiratory failure with hypoxia: Status: Acute (2) Nicotine addiction: Status: Acute (3) Acute exacerbation of chronic obstructive airways disease: Status: Acute (4) Elevated PSA: Status: Acute Permanent problem details: Chronically elevated PSA, normal OBDULIA. Multiple other comorbidities including severe lung disease. Has adamantly refused biopsy Reason for Visit Reason for Visit: SOB Brief History: As per Dr. Wang, Flavio Villareal is a 71 year old male with past medical history of COPD not on chronic oxygen who presented to the ER today because of having difficulty in breathing, increasing cough for last 3 days.? Patient states he is usually coughs on a daily basis but for last 3 days his cough has been increasing along with increasing thick mucus expectoration causing him to have vomiting and nausea.? Patient denies of having any sick contacts.? States he has been having subjective feels of fever at home as well.? States he is usually not admitted to the hospital for COPD but has been using extra inhalers for difficulty in breathing for last 3 days.? Patient states she has been vaccinated for COVID-19 with booster with last shot late last year in 2020. In the ER he was found to be hypoxic so placed on oxygen.? Currently on 2 to 3 L satting 97%. Hospital Course Hospital Course She was admitted for COPD exacerbation. There was no evidence of pneumonia on the CAT scan. Patient does have a history of severe emphysema. Sputum culture grew strep pneumonia. He was treated with IV antibiotics for the first 2 days and then discharged home on oral Levaquin x7 days. Home oxygen evaluation was completed and he qualified for 2 L of oxygen. He was discharged home in a stable condition to follow-up with his residential real estate sales manager outpatient. Physical Exam Narrative: General: No acute distress, AO x3, cachectic Chest: mild rhonchi throughout lung christie, good bilateral air entry CVS: S1-S2 regular, no murmurs, no tachycardia, no gallops, no rubs Abdomen: Soft, nontender, no organomegaly, bowel sounds present Neuro: No focal deficits, no facial deformity, AO x3, Discharge Data Studies Completed and Pending Completed Studies During Hospitalization Category Date Time Status CTA chest [CT angio chest PE protcl [id number]] Routine Cat Scan 05/07/22 18:33 Completed XR chest 1V portable [id number] Stat Exams 05/07/22 16:21 Completed Pending at discharge Category Date Time Status Blood Culture Stat Lab 05/07/22 17:40 Results Sputum Culture and Gram Stain Stat Lab 05/07/22 18:30 Results Radiology Impressions Chest X-Ray 05/07/22 16:21 IMPRESSION: No acute findings. Chest CTA 05/07/22 18:33 IMPRESSION: 1. No pulmonary embolism. 2. Probably chronic bilateral lower lobe bronchitis. 3. Severe centrilobular emphysema. 4. Irregular 12 mm left upper lobe pulmonary nodule, new since 09/11/2020. Highly suspicious nodule. Consider non-emergent PET/CT, or tissue sampling.(Reference: Pinky) REFERENCES: Pinky Gaspar, et al. Guidelines for Management of Incidental Pulmonary Nodules Detected on CT Images: From the Fleischner Society 2017. Radiology. 2017;284(1):228-243. Laboratory Results WBC 9.6 10^3/uL (4.0-10.0) 05/08/22 04:35 RBC 4.31 10^6/uL (4.1-5.3) 05/08/22 04:35 Hgb 13.9 g/dL (11.7-16.6) 05/08/22 04:35 Hct 40.0 % (42.0-52.0) L 05/08/22 04:35 MCV 92.8 fl (80-94) 05/08/22 04:35 MCH 32.3 pg (28.0-34.0) 05/08/22 04:35 MCHC 34.8 g/dL (30.0-36.0) 05/08/22 04:35 RDW 13.2 % (12.1-15.1) 05/08/22 04:35 Plt Count 223 10^3/cmm (130-400) 05/08/22 04:35 MPV 10.3 fL (7.4-10.4) 05/08/22 04:35 Neut % (Auto) 91.2 % 05/08/22 04:35 Lymph % (Auto) 5.8 % 05/08/22 04:35 [place] % (Auto) 2.5 % 05/08/22 04:35 Eos % (Auto) 0.0 % 05/08/22 04:35 Baso % (Auto) 0.0 % 05/08/22 04:35 Neut # (Auto) 8.79 10^3/uL (1.8-7.7) H 05/08/22 04:35 Lymph # (Auto) 0.6 10^3/uL (0.8-4.8) L 05/08/22 04:35 [place] # (Auto) 0.2 10^3/uL (0.2-0.9) 05/08/22 04:35 Eos # (Auto) 0.0 10^3/uL (0.0-0.8) 05/08/22 04:35 Baso # (Auto) 0.0 10^3/uL (0.0-0.1) 05/08/22 04:35 Nucleated RBC % (auto) 0 % 05/08/22 04:35 Nucleated RBCs # 0.0 /100WBC 05/08/22 04:35 D-Dimer 0.29 ug/mIFEU (0-0.59) 05/07/22 16:10 Specimen Type Arterial 05/07/22 17:29 Sample Site Radial, right 05/07/22 17:29 ABG pH 7.41 (7.35-7.45) 05/07/22 17:29 ABG pCO2 33.4 mmHg (35-45) L 05/07/22 17: ABG pO2 75.2 mmHg (80.0-100.0) L 05/07/22 17:29 ABG HCO3 21.2 mmol/L (22-26) L 05/07/22 17:29 ABG O2 Saturation 96.3 05/07/22 17:29 ABG Base Excess -2.6 mmol/L (-2.0-2.0) L 05/07/22 17:29 Dale Test Pos 05/07/22 17:29 A-a O2 Gradient 4.2 mmHg (5-10) L 05/07/22 17:29 Hematocrit 46.7 % (42-52) 05/07/22 17:29 Hgb O2 Saturation 95.0 % (95-100) 05/07/22 17:29 Carboxyhemoglobin 1.0 %THgb (0.4-20.1) 05/07/22 17:29 Methemoglobin 0.4 % (0.4-1.5) 05/07/22 17:29 Total Hemoglobin 15.2 g/dL (14-18) 05/07/22 17:29 Sodium 135.0 mmol/L (131-143) 05/07/22 17:29 Potassium 4.2 mmol/L (3.5-5.0) 05/07/22 17:29 Glucose 108.0 mg/dL (70-115) 05/07/22 17:29 Ionized Calcium 1.2 mmol/L (1.1-1.4) 05/07/22 17:29 O2 Delivery Device Nc 05/07/22 17:29 O2 Liters/Min 2.0 % 05/07/22 17:29 Risk Officer ID Brent 05/07/22 17:29 Sodium 136 mmol/L (136-145) 05/08/22 04:35 Potassium 4.2 mmol/L (3.5-5.1) 05/08/22 04:35 Chloride 101 mmol/L (98-107) 05/08/22 04:35 Carbon Dioxide 23 mmol/L (22-29) 05/08/22 04:35 Anion Gap 16.2 (5-19) 05/08/22 04:35 BUN 16 mg/dL (8-23) 05/08/22 04:35 Creatinine 0.8 mg/dL (0.7-1.2) 05/08/22 04:35 GFR Calculation 95.8 mL/min (90-130) 05/08/22 04:35 Glucose 132 mg/dL (65-115) H 05/08/22 04:35 Estimat Average Glucose 105 05/08/22 04:35 Hemoglobin A1c 5.3 % (4.0-6.0) 05/08/22 04:35 Calculated Osmolality 285 mOsm/kg (285-295) 05/08/22 04:35 Calcium 8.3 mg/dL (8.5-10.5) L 05/08/22 04:35 Iron 17 ug/dL (59-158) L 05/07/22 16:10 TIBC 220 mcg/dl 05/07/22 16:10 % Saturation 7.7 % (20-50) L 05/07/22 16:10 Unsat Iron Binding 203 ug/dL (112-347) 05/07/22 16:10 Total Bilirubin 0.3 mg/dL (0.15-1.2) 05/08/22 04:35 AST 15 U/L (0-40) 05/08/22 04:35 ALT 10 U/L (0-41) 05/08/22 04:35 Alkaline Phosphatase 80 IU/L (40-130) 05/08/22 04:35 C-Reactive Protein 132.3 mg/L (0.0-4.9) H 05/07/22 16:10 NT-Pro-B Natriuret Pep 770 pg/mL (0-125) H 05/07/22 16:10 Total Protein 6.7 g/dL (6.6-8.7) 05/08/22 04:35 Albumin 3.4 g/dL (3.5-5.2) L 05/08/22 04:35 Globulin 3.3 g/dL (1.3-4.6) 05/08/22 04:35 Triglycerides 73 mg/dL (0-150) 05/08/22 04:35 Cholesterol 114 mg/dL (0-200) 05/08/22 04:35 LDL Cholesterol, Calc 48 mg/dL (50-129) L 05/08/22 04:35 Total VLDL Cholesterol 15 mg/dL (0-30) 05/08/22 04:35 HDL Cholesterol 51 mg/dL (60-100) L 05/08/22 04:35 Cholesterol/HDL Ratio 2.24 mg/dL (1.0-5.00) 05/08/22 04:35 Procalcitonin 0.22 ng/mL (0-0.5) 05/07/22 16:10 TSH 2.38 uIU/mL (0.27-4.20) 05/07/22 16:10 Urine Color Yellow (Yellow) 05/07/22 22:15 Urine Appearance Clear (CLEAR) 05/07/22 22:15 Urine pH 6.5 (5-7) 05/07/22 22:15 Ur Specific [place] 1.015 (1.005-1.030) 05/07/22 22:15 Urine Protein 1+ (Negative) H 05/07/22 22:15 Urine Glucose (UA) Norm (Normal) 05/07/22 22:15 Urine Ketones 1+ (Negative) H 05/07/22 22:15 Urine Blood 3+ (Negative) H 05/07/22 22:15 Urine Nitrate Negative (Negative) 05/07/22 22:15 Urine Bilirubin Neg (Negative) 05/07/22 22:15 Urine Urobilinogen 1 mg/dL (Negative) H 05/07/22 22:15 Ur Leukocyte Esterase Negative (Negative) 05/07/22 22:15 Urine RBC 5-10 /hpf (0-2) H 05/07/22 22:15 Urine WBC 0-4 /hpf (0-5) H 05/07/22 22:15 Ur Eosinophil Smear 0 (0-0) 05/07/22 22:15 Ur Squamous Epith Cells 0-4 /hpf (0-5) H 05/07/22 22:15 Amorphous Sediment Not Reportable 05/07/22 22:15 Urine Bacteria Trace /hpf (NONE) 05/07/22 22:15 Urine Mucus 1+ /hpf 05/07/22 22:15 Urine Eosinophils No eosinophils seen 05/07/22 22:15 Ur Random Sodium 19 mmol/L 05/07/22 22:15 Ur Random Potassium 81 mmol/L 05/07/22 22:15 Ur Random Chloride 35 mmol/L 05/07/22 22:15 Urine Creatinine 117 mg/dL (39-259) 05/07/22 22:15 Coronavirus 229E (PCR) Not detected (NOT DETECT) 05/07/22 20:50 Influenza Type A Ag Negative (Negative) 05/07/22 18:55 Influenza Type B Ag Negative (Negative) 05/07/22 18:55 SARS-CoV-2 (PCR) Not detected (NOT DETECT) 05/07/22 20:50 Vitals Last Vital Signs Temp 97.8 F 05/10/22 08:00 Pulse 78 05/10/22 08:00 Resp 18 05/10/22 08:00 BP 94/56 05/10/22 08:00 Pulse Ox 93 05/10/22 08:00 Discharge Plan Discharge Patient Disposition: Home Condition: Stable Prescriptions: New levofloxacin 750 mg Tablet 750 mg PO DAILY@0600 7 Days Qty: 7 0RF ferrous gluconate 324 mg (37.5 mg iron) Tablet 324 mg PO BIDWM 30 Days Qty: 30 0RF Continued budesonide 0.5 mg/2 mL suspension for nebulization 0.5 mg inhalation BID Qty: 120 3RF montelukast 10 mg tablet 10 mg PO DAILY Qty: 30 3RF ipratropium-albuterol 0.5 mg-3 mg(2.5 mg base)/3 mL solution for nebulization 3 ml inhalation QID Qty: 360 3RF albuterol sulfate [Ventolin HFA] 90 mcg/actuation HFA aerosol inhaler 2 puff inhalation Q4H PRN (Reason: shortness of breath or wheezing) Qty: 8.5 3RF Symbicort 160-4.5 mcg/actuation HFA aerosol inhaler 2 puff INHALATION BID 0RF finasteride 5 mg tablet 5 mg PO DAILY 0RF Discharge Orders: Discharge Order (Routine); Ordered 05/10/22 Ordered By: Carmen Wall Other Ambulatory Orders: DME: Oxygen (Order) Location: None Selected Ordered By: Carmen Wall Referrals: Arianna Esparza NP [Referring] - 05/16/22 9:30 am Davi Sahni MD [Physician] - 05/25/22 9:30 am Discharge Diet: Regular Discharge Activity: Resume usual activity and Increase activity as tolerated Patient Instructions: Prednisone (By mouth), Levofloxacin (By mouth), Hypoxia (GEN), Opioid Safety Activity Restrictions/Additional Instructions: If worsening shortness of breath, chest pain, lightheadedness, please return to the hospital. Discharge Attestations Time Spent in Discharge Care*: less than 30 min Quality Metrics Clinical Quality Measures [ No reported AMI, CVA or VTE this stay] Coding Level of Care Code Acute Chg FW DC note Diagnoses Chronic respiratory failure with hypoxia J96.11 Nicotine addiction F17.200 Acute exacerbation of chronic obstructive airways disease J44.1 Elevated PSA R97.20
--- NOTE | 2022-05-10 08:54 | PC.SOCIAL ---
IMM UPDATED IMM dated and initialed, copy given to patient and copy placed in chart
== END 2022-05-10 14:56 | disposition home or self-care (01) | DRG 191 ==
LOC: ER 17:40 → MEDSURG 17:56
PROVIDERS: Admitting Provider Student in an Organized Health Care Education/Training Program; Emergency Provider Family Medicine; PCP Nurse Practitioner Family; Visit Provider Internal Medicine
DX: J43.2 Centrilobular emphysema (principal); J96.11 Chronic respiratory failure with hypoxia; F17.210 Nicotine dependence, cigarettes, uncomplicated; Z66 Do not resuscitate; R91.1 Solitary pulmonary nodule; B95.3 Streptococcus pneumoniae as the cause of diseases classified elsewhere; R97.20 Elevated prostate specific antigen [PSA]; N40.0 Benign prostatic hyperplasia without lower urinary tract symptoms
CPT/HCPCS: 36415; 36600; 71045; 71275; 80051; 80053; 80061; 81001; 82330; 82436; 82570; 82805; 83036; 83540; 83550; 83880; 84133; 84145; 84300; 84443; 85025; 85378; 85999; 86140; 86403; 87040; 87070; 87205; 87449; 87635; 87641; 87804; 93005; 94640; 94664; 96365; 96372; 96375; 99285; J0696; J1200; J1644; J1720; J1956; J2920; J2930; J3490; J7030; J7614; J7626; Q9967

== ENCOUNTER → 2022-05-25 09:40 | Outpatient (BNVA) | payer MEDICARE, MEDICAID, SELFPAY | PROVIDERS: PCP Nurse Practitioner Family; Visit Provider Internal Medicine Critical Care Medicine | DX: J44.1 Chronic obstructive pulmonary disease with (acute) exacerbation (principal); J44.9 Chronic obstructive pulmonary disease, unspecified; J96.11 Chronic respiratory failure with hypoxia; F17.210 Nicotine dependence, cigarettes, uncomplicated | CPT/HCPCS: 71046; 99214 ==

== ENCOUNTER → 2022-07-29 10:43 | Outpatient (BNVA) | payer MEDICARE, MEDICAID, SELFPAY | PROVIDERS: PCP Nurse Practitioner Family; Visit Provider Internal Medicine Critical Care Medicine | DX: J44.9 Chronic obstructive pulmonary disease, unspecified (principal); J96.11 Chronic respiratory failure with hypoxia; F17.210 Nicotine dependence, cigarettes, uncomplicated; R91.1 Solitary pulmonary nodule; Z99.81 Dependence on supplemental oxygen | CPT/HCPCS: 99214 ==

== ENCOUNTER → 2023-01-26 15:26 | Outpatient (BNVA) | payer MEDICARE, MEDICAID, SELFPAY | PROVIDERS: PCP Nurse Practitioner Family; Visit Provider Internal Medicine Pulmonary Disease | DX: J44.9 Chronic obstructive pulmonary disease, unspecified (principal); F17.210 Nicotine dependence, cigarettes, uncomplicated; J96.11 Chronic respiratory failure with hypoxia; Z99.81 Dependence on supplemental oxygen; Z79.52 Long term (current) use of systemic steroids | CPT/HCPCS: 99214 ==

== ENCOUNTER 2023-02-16 11:18 | Outpatient (CLI) | payer MEDICARE, MEDICAID, SELFPAY ==
--- NOTE | 2023-02-16 11:15 | CT_ITS ---
WS: [id number] LDCT LUNG CANCER SCREENING TECHNIQUE: Noncontrast CT of the chest with coronal and sagittal reformatted images. CLINICAL INFORMATION: lung screening COMPARISON: None. DLP: 98.07 mGy.cm DIvol: Mean CTDIvol: 1.60 (mGy) All CT scans at [facility] use at least one of these dose optimization techniques: automat ed exposure control; mA and/or kV adjustment per patient size (includes targeted exams where dose is matched to clinical indication); or iterative reconstruction. FINDINGS: Advanced chronic emphysematous changes. 12 mm LEFT upper lobe pulmonary nodule is unchanged since the prior studies. New nodule RIGHT upper lobe along the mediastinum anteriorly measuring 10 mm has deve loped since the prior examinations. Consider further evaluation with PET/CT versus 3-6 month follow-u p. Tiny noncalcified nodule LEFT upper lobe subpleural. A few calcified granulomas. Fibrotic changes in the lung bases. Normal caliber thoracic aorta. Aortic calcification. No mediastinal or hilar lymphadenopathy. Adrena l glands are normal. Hepatic cysts. Small esophageal hiatal hernia. CT/CT lung screening [id number] IMPRESSION: 1. 10 mm nodule RIGHT upper lobe anteriorly along the mediastinum has develope d since the prior examinations. Recommend 3-6 month follow-up chest CT versus f urther evaluation with PET/CT. 2. Previously described spiculated nodule in the LEFT upper lobe measuring 12 mm is unchanged. LUNG-RADS: 4A-Probably Suspicious FOLLOW UP: PET/CT recommended
== END 2023-02-16 11:19 | disposition home or self-care (01) ==
LOC: RAD 11:22
PROVIDERS: PCP Nurse Practitioner Family; Visit Provider Internal Medicine Pulmonary Disease
DX: Z12.2 Encounter for screening for malignant neoplasm of respiratory organs (principal); F17.210 Nicotine dependence, cigarettes, uncomplicated; J44.9 Chronic obstructive pulmonary disease, unspecified; R91.1 Solitary pulmonary nodule
CPT/HCPCS: 71271

== ENCOUNTER 2023-04-19 16:18 | Emergency (ER) | payer MEDICARE, MEDICAID, SELFPAY ==
[2023-04-19 16:28] VITALS: BP 136/62; PULSE 117; RESP 16; TEMP 36.7; O2SAT 99; BMI 15.3
--- NOTE | 2023-04-19 16:43 | XRR_ITS ---
PROCEDURE INFORMATION: Exam: XR Chest Exam date and time: 04/19/2023 4:58 PM Age: 72 years old Clinical indication: Shortness of breath; Additional info: SOB TECHNIQUE: Imaging protocol: Radiologic exam of the chest. Views: 1 view. COMPARISON: CT lung screening [id number] 02/16/2023 11:34 AM FINDINGS: Lungs: Lung crhistie are hyperinflated and hyperlucent consistent with COPD and emphysematous changes. There are no infiltrates or overt CHF. Pleural spaces: Unremarkable. No pleural effusion. No pneumothorax. Heart/Mediastinum: Heart is relatively small in size likely secondary to COPD, unchanged. Bones/joints: Unremarkable for age. XR/XR chest 1V portable [id number] IMPRESSION: COPD with associated microcardia, stable.
--- NOTE | 2023-04-19 16:46 | ED_ITS ---
HPI - SOB/Dyspnea General: Chief Complaint: Shortness of Breath/Dyspnea Stated Complaint: resp distress Time Seen by Provider: 04/19/23 16:33 Source: patient Mode of arrival: EMS Limitations: no limitations History of Present Illness: HPI Narrative: Patient was transported by EMS from his home. He is here because he had increasing short of breath despite turning his oxygen up at home and using his usual medications. He has a known history of oxygen dependent as well as pr ednisone dependent COPD. He is followed by pulmonology at this facility. Denies any fevers. He states he has had a dry cough. No known exposure to infectious disease. No history of cardiovascular disease, congestive heart failure etc. MD elicited complaint: shortness of breath and cough Pertinent past history: COPD Timing: progressively worsening Relieving factors: oxygen Known history of: COPD Associated symptoms: Deny abdominal pain, chest pain, extremity pain, fever(s), nausea, palpitations or vomiting Review of Systems Const: Denies: fever(s) or chills ENMT: Denies: throat pain, odynophagia, nasal discharge or nasal congestion Card: Denies: chest pain, palpitations, irregular heart rhythm or edema Resp: Reports: dyspnea, non-productive cough and wheezing GI: Denies: abdominal pain, nausea, vomiting or diarrhea : Denies: difficulty urinating or dysuria Musc: Denies: neck pain, back pain, extremity pain or extremity swelling Skin/Breast: Denies: rash Neuro: Denies: headache(s), numbness in extremities or weakness in extremities Psych: Denies: anxiety PFSH ED PFSH: Medical History Abnormal weight loss BPH (benign prostatic hyperplasia) Chronic obstructive pulmonary disease Elevated PSA Chronically elevated PSA, normal OBDULIA. Multiple other comorbidities including severe lung disease. Has adamantly refused biopsy Enlarged prostate Hypothyroidism Lung nodule Nicotine dependence, cigarettes, with other nicotine-induced disorders Tachycardia Surgical History History of lung biopsy S/P tonsillectomy Family History Mother , 75 Diabetes Father , 82 No problems noted. Social History Smoking and tobacco status: current every day smoker (1ppd) cigarettes Packs smoked per day: 0.5 Years cigarettes smoked: 50 [ Other cigarette details: Hx of 2 PPD x 50 Years, started at age 20] Alcohol intake: never Substance/Drug Use: never Marital status: / Current occupational status: retired Do you think of yourself as: Straight/Heterosexual Physical Exam Narrative: EXAM NARRATIVE: The patient is alert answers questions in an appropriate goal-directed fashion and makes good eye contact. He has thin. Const: COMMON NORMALS: patient oriented x3 and alert GENERAL APPEARANCE: cooperative NUTRITIONAL APPEARANCE: thin HENMT: COMMON NORMALS: normocephalic, Normal nasal mucous membranes and turbinates present, moist oral mucous membranes and oropharynx normal HEAD & SCALP: normocephalic NOSE: Normal nasal mucous membranes and turbinates present Eye: COMMON NORMALS: Equal, round and reactive pupils present, EOMs intact bilaterally, conjunctivae normal and no scleral icterus CONJUNCTIVA: Yes conjunctivae normal PUPIL: Yes Equal, round and reactive pupils present Neck/C-Spine: COMMON NORMALS: full ROM, no lymphadenopathy, no JVD and No carotid bruits Chest: COMMONS NORMALS: normal inspection of the chest Resp: EFFORT & INSPECTION: Yes uses accessory muscles AUSCULTATION: rhonchi and wheezes Cardio: COMMON NORMALS: no JVD, regular rate, regular rhythm, No murmurs present (Cardio) and Peripheral pulses 2+ throughout RATE: regular rate RHYTHM: regular rhythm PERIPHERAL PULSES: Peripheral pulses 2+ throughout GI: COMMON NORMALS: Normal to inspection, nondistended, normoactive bowel sounds present, Soft to palpation, non-tender and no masses PALPATION: Yes Soft to palpation Back/Pelvis: COMMON NORMALS: thoracic and lumbar spine normal to inspection, no thoracic nor lumbar tenderness and thoraco-lumbar ROM normal Extremity: COMMON NORMALS: normal to inspection, full ROM, capillary refill normal, no calf tenderness and no pedal edema Neuro: COMMON NORMALS: patient oriented x3, moves all extremities, no focal motor deficits and no sensory deficits noted SENSORIUM/ORIENTATION: Yes alert Psych: COMMON NORMALS: mental status grossly normal Skin: COMMON NORMALS: no rashes or lesions noted, no wounds, turgor normal and no jaundice GENERAL SKIN EXAM: no rashes or lesions noted and turgor normal Course Reevaluation(s): Reevaluation #1: Patient was reexamined. He subjectively states he feels markedly better. He is at his usual 2 L at 100% while speaking. He has work of breathing is markedly improved. Auscultation of his chest reveals no rhonchi and no wheezing at this time. Does have some coarse airway sounds but no crackles etc. No other focal findings. We discussed treatment options to include placing him in observation and continuing therapy here versus discharged to home care. He weighed the pros and cons of each approach and his decision was that he would like to try it at home and if he does not continue to do well he will return for further evaluation and admission if indicated. He has long-acting beta agonist, inhaled steroids, nebulizer, home oxygen etc. as needed for his home care. We will place him on a steroid burst of 40 mg daily for 7 days and then he has a then having return back to his 5 mg daily maintenance dose. No indication for antibiotics at this time. Does have leukocytosis but that is likely related to his steroid use as well as his exacerbation. His chest x-ray is reassuring he is afebrile. Time: 20:29 Vital Signs: Vital signs: Vital Signs Temperature 98.1 F 04/19/23 16:28 Pulse Rate 88 04/19/23 18:09 Respiratory Rate 24 H 04/19/23 17:05 Blood Pressure 111/63 04/19/23 18:09 Pulse Oximetry 99 04/19/23 18:09 Oxygen Delivery Me thod Room Air 04/19/23 18:09 Oxygen Flow Rate 3 04/19/23 17:53 MDM - SOB/Dyspnea Medical Decision Making Patient with known history of oxygen dependent steroid-dependent end-stage COPD who had worsening of symptoms over the past few days which culminated in EMS arrival to our facility. Prior to arrival he received nebulizations treatments as well as steroids from EMS. On arrival here he was noted to be somewhat dyspneic with increased work of breathing. Work-up ensued to rule out pneumonia or other potential cause of his exacerbation. He was given the benefit of long-acting nebulization treatment, IV magnesium as well as IV hydration. He responded well to treatments and chest x-ray and other findings were reassuring at this time. COPD exacerbation improved and at baseline per oxygen level as well as work of breathing. He desires to be discharged for home care. We will plan on doing such with an increased dose of oral steroids. Also discussed return precautions in detail. Differential Diagnosis Likely acute exacerbation of chronic obstructive airways disease Medical Records I reviewed the patient's medical records. Lab Data I reviewed the patient's lab results. 04/19/23 16:42 04/19/23 16:42 Labs/Radiology: Radiology Impressions Chest X-Ray 04/19/23 16:43 IMPRESSION: COPD with associated microcardia, stable. Laboratory Results WBC 17.2 10^3/uL (4.0-10.0) H 04/19/23 16:42 RBC 4.22 10^6/uL (4.1-5.3) 04/19/23 16:42 Hgb 13.7 g/dL (11.7-16.6) 04/19/23 16:42 Hct 41.8 % (42.0-52.0) L 04/19/23 16:42 MCV 99.1 fl (80-94) H 04/19/23 16:42 MCH 32.5 pg (28.0-34.0) 04/19/23 16:42 MCHC 32.8 g/dL (30.0-36.0) 04/19/23 16:42 RDW 13.0 % (12.1-15.1) 04/19/23 16:42 Plt Count 324 10^3/cmm (130-400) 04/19/23 16:42 MPV 9.9 fL (7.4-10.4) 04/19/23 16:42 Neut % (Auto) 68.2 % 04/19/23 16:42 Lymph % (Auto) 20.9 % 04/19/23 16:42 [place] % (Auto) 9.6 % 04/19/23 16:42 Eos % (Auto) 0.5 % 04/19/23 16:42 Baso % (Auto) 0.2 % 04/19/23 16:42 Neut # (Auto) 11.72 10^3/uL (1.8-7.7) H 04/19/23 16:42 Lymph # (Auto) 3.6 10^3/uL (0.8-4.8) 04/19/23 16:42 [place] # (Auto) 1.6 10^3/uL (0.2-0.9) H 04/19/23 16:42 Eos # (Auto) 0.1 10^3/uL (0.0-0.8) 04/19/23 16:42 Baso # (Auto) 0.0 10^3/uL (0.0-0.1) 04/19/23 16:42 Nucleated RBC % (auto) 0 % 04/19/23 16:42 Nucleated RBCs # 0.0 /100WBC 04/19/23 16:42 Specimen Type Arterial 04/19/23 16:44 Sample Site Radial, left 04/19/23 16:44 ABG pH 7.34 (7.35-7.45) L 04/19/23 16:44 ABG pCO2 54.3 mmHg (35-45) H 04/19/23 16:44 ABG pO2 149.0 mmHg (80.0-100.0) H 04/19/23 16:44 ABG HCO3 29.0 mmol/L (22-26) H 04/19/23 16:44 ABG Base Excess 1.9 mmol/L (-2.0-2.0) 04/19/23 16:44 Dale Test Pos 04/19/23 16:44 Hematocrit 44.1 % (42-52) 04/19/23 16:44 Hgb O2 Saturation 97.5 % (95-100) 04/19/23 16:44 Carboxyhemoglobin 1.2 %THgb (0.4-20.1) 04/19/23 16:44 Methemoglobin 1.0 % (0.4-1.5) 04/19/23 16:44 Total Hemoglobin 14.4 g/dL (14-18) 04/19/23 16:44 O2 Delivery Device Nc 04/19/23 16:44 O2 Liters/Min 5.0 % 04/19/23 16:44 FiO2 40.0 % 04/19/23 16:44 Satellite Tv Installer ID [email or web address] 04/19/23 16:44 Sodium 139 mmol/L (136-145) 04/19/23 16:42 Potassium 4.5 mmol/L (3.5-5.1) 04/19/23 16:42 Chloride 101 mmol/L (98-107) 04/19/23 16:42 Carbon Dioxide 28 mmol/L (22-29) 04/19/23 16:42 Anion Gap 14.5 (5-19) 04/19/23 16:42 BUN 19 mg/dL (8-23) 04/19/23 16:42 Creatinine 0.8 mg/dL (0.7-1.2) 04/19/23 16:42 GFR Calculation 95.6 mL/min (90-130) 04/19/23 16:42 Glucose 113 mg/dL (65-115) 04/19/23 16:42 Calculated Osmolality 291 mOsm/kg (285-295) 04/19/23 16:42 Calcium 8.6 mg/dL (8.5-10.5) 04/19/23 16:42 Total Bilirubin 0.4 mg/dL (0.15-1.2) 04/19/23 16:42 AST 16 U/L (0-40) 04/19/23 16:42 ALT 13 U/L (0-41) 04/19/23 16:42 Alkaline Phosphatase 51 U/L (40-130) 04/19/23 16:42 Total Protein 6.5 g/dL (6.6-8.7) L 04/19/23 16:42 Albumin 3.9 g/dL (3.5-5.2) 04/19/23 16:42 Globulin 2.6 g/dL (1.3-4.6) 04/19/23 16:42 Discharge Plan Discharge Patient Disposition: Home Clinical Impression: Acute exacerbation of chronic obstructive pulmonary disease (COPD) Condition: Stable Prescriptions: New prednisone 20 mg tablet 20 mg PO BID 7 Days Qty: 14 0RF No Action montelukast 10 mg tablet 10 mg PO DAILY Qty: 30 3RF prednisone 5 mg tablet 5 mg PO DAILY 90 Days Qty: 90 2RF Arnuity Ellipta 50 mcg/actuation blister with device 1 inh inhalation DAILY Qty: 30 3RF albuterol sulfate [Ventolin HFA] 90 mcg/actuation HFA aerosol inhaler 2 puff inhalation Q4H PRN (Reason: shortness of breath or wheezing) Qty: 8.5 3RF finasteride 5 mg tablet 5 mg PO DAILY Qty: 90 3RF ipratropium-albuterol 0.5 mg-3 mg(2.5 mg base)/3 mL solution for nebulization 3 ml inhalation QID Qty: 360 3RF formoterol fumarate [Perforomist] 20 mcg/2 mL solution for nebulization 2 ml inhalation BID Qty: 120 11RF revefenacin 175 mcg/3 mL solution for nebulization 175 mcg inhalation DAILY Qty: 90 11RF Discharge Orders: Discharge ED (Routine); Ordered 04/19/23 Ordered By: John Beckham Referrals: Reena Cotter FNP [Primary Care Provider] - Discharge Diet: Usual diet Discharge Activity: Increase activity as tolerated and Oxygen as instructed Patient Instructions: Opioid Safety, Pain Management Activity Restrictions/Additional Instructions: As we discussed you should continue usual breathing treatments and inhaled medications. We have increased your prednisone for the next 7 days. Once you finish with the increased dose you should resume back to your 5 mg daily dose. If you have worsening of your symptoms at any time or other concerns return to this emergency department for reevaluation as we discussed. Coding Level of Care Code ED Straw Hat Presser for Amaya Norris
[2023-04-19 16:50] LABS: Basophils % 0.2 %; Eosinophils # 0.1 10^3/uL (0.0-0.8); Eosinophils % 0.5 %; Hematocrit 41.8 % (42.0-52.0); Hemoglobin 13.7 g/dL (11.7-16.6); Lymphocytes # 3.6 10^3/uL (0.8-4.8); Lymphocytes % 20.9 %; Mean Corpuscular HGB Conc 32.8 g/dL (30.0-36.0); Mean Corpuscular Hemoglobin 32.5 pg (28.0-34.0); Mean Corpuscular Volume 99.1 fl (80-94); Mean Platelet Volume 9.9 fL (7.4-10.4); Monocytes # 1.6 10^3/uL (0.2-0.9); Monocytes % 9.6 %; Neutrophils # 11.72 10^3/uL (1.8-7.7); Neutrophils % 68.2 %; Nucleated Red Blood Cells % 0 %; Platelet Count 324 10^3/cmm (130-400); Red Blood Count 4.22 10^6/uL (4.1-5.3); White Blood Count 17.2 10^3/uL (4.0-10.0)
[2023-04-19 16:56] LABS: ABG PCO2 54.3 mmHg (35-45); ABG PH Result 7.34 (7.35-7.45); Arterial Blood Gas Hematocrit 44.1 % (42-52); Base Excess ABG 1.9 mmol/L (-2.0-2.0); Blood Gas Allen Test Pos; Blood Gas Sample Type Arterial; Carboxyhemoglobin 1.2 %THgb (0.4-20.1); HGB O2 Sat 97.5 % (95-100); Total Hemoglobin 14.4 g/dL (14-18)
[2023-04-19 16:57] LABS: Blood Gas Operator Identificat MONRO; Blood Gas Sample Site Radial, left; Oxygen Device NC
[2023-04-19 17:05] VITALS: PULSE 117; RESP 24; O2SAT 99
[2023-04-19] MEDS: ipratropium-albuterol 3 mL Neb 9 ML INHALATION (17:05)
[2023-04-19] MEDS: sodium chloride 0.9% 1,000 ML 999 ML IV (17:10)
[2023-04-19] MEDS: magnesium sulfate premix 2 GM/50 ML PIGGYBACK IV (17:13)
[2023-04-19 17:17] VITALS: PULSE 111
[2023-04-19 17:28] LABS: Alanine Aminotransferase 13 U/L (0-41); Albumin Level 3.9 g/dL (3.5-5.2); Alkaline Phosphatase 51 U/L (40-130); Blood Urea Nitrogen 19 mg/dL (8-23); Calcium 8.6 mg/dL (8.5-10.5); Carbon Dioxide 28 mmol/L (22-29); Chloride 101 mmol/L (98-107); Creatinine Clr Calc Pharmacy 60.6363; Globulin 2.6 g/dL (1.3-4.6); Glomerular Filtration Rate 95.6 mL/min (90-130); Glucose 113 mg/dL (65-115); Osmolality Calculated 291 mOsm/kg (285-295); Sodium 139 mmol/L (136-145); Total Bilirubin 0.4 mg/dL (0.15-1.2); Total Protein 6.5 g/dL (6.6-8.7)
[2023-04-19 17:29] LABS: Anion Gap 14.5 (5-19); Aspartate Amino Transferase 16 U/L (0-40); Potassium 4.5 mmol/L (3.5-5.1)
[2023-04-19 17:53] VITALS: BP 101/69; PULSE 99; O2SAT 98
[2023-04-19 18:09] VITALS: BP 111/63; PULSE 88; O2SAT 99
[2023-04-19 20:52] VITALS: BP 135/86; RESP 18; O2SAT 94
== END 2023-04-19 22:18 | disposition home or self-care (01) ==
PROVIDERS: Emergency Provider Emergency Medicine; PCP Nurse Practitioner Family
DX: J44.1 Chronic obstructive pulmonary disease with (acute) exacerbation (principal); F17.210 Nicotine dependence, cigarettes, uncomplicated
CPT/HCPCS: 36600; 71045; 80053; 82805; 85025; 94640; 96365; 96366; 99284; J3475; J7030

== ENCOUNTER 2023-04-22 09:05 | Inpatient (IN) | payer MEDICARE, MEDICAID, SELFPAY ==
[2023-04-22] VITALS (21 sets, daily range): BP systolic 99–155; BP diastolic 63–80; PULSE 79–118; RESP 11–24; TEMP 36.6–36.8; O2SAT 97–100; BMI 15.3
--- NOTE | 2023-04-22 09:11 | XRR_ITS ---
PROCEDURE INFORMATION: Exam: XR Chest Exam date and time: 04/22/2023 9:37 AM Age: 72 years old Clinical indication: Dyspnea TECHNIQUE: Imaging protocol: Radiologic exam of the chest. Views: 1 view. COMPARISON: CR (CHEST, ) 04/19/2023 4:58 PM FINDINGS: Lungs: Background of emphysema. No focal airspace consolidation. Pleural spaces: Unremarkable. No pleural effusion. No pneumothorax. Heart/Mediastinum: Unremarkable. No cardiomegaly. Bones/joints: Unremarkable. XR/XR chest 1V portable [id number] IMPRESSION: No acute cardiopulmonary abnormality.
--- NOTE | 2023-04-22 09:12 | ECG_ITS ---
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 Measurements Intervals [place] Rate: 111 P: 85 NC: 149 QRS: 81 QRSD: 85 T: 85 QT: 287 QTc: 391 Interpretive Statements SINUS TACHYCARDIA LOW QRS VOLTAGE IN PRECORDIAL LEADS [QRS DEFLECTION < 1.0 mV IN CHEST LEADS] ABNORMAL RHYTHM ECG Compared to ECG 05/07/2022 15:02:55 Low QRS voltage now present Electronically Signed On 04-22-2023 10:23:18 CDT by Lex Perrin M.D. [id number]
--- NOTE | 2023-04-22 09:13 | W.ED.SOB ---
HPI - SOB/Dyspnea General: Chief Complaint: Shortness of Breath/Dyspnea Stated Complaint: SOB Time Seen by Provider: 04/22/23 09:09 History of Present Illness: HPI Narrative: This patient is a 72 year old presenting by EMS with severe shortness of breath. He has a history of severe COPD and uses oxygen at home, as well as nebulizers. He was seen by his PCP and started on antibiotics, and presented to the ED on Monday of this week for worsening symptoms. he was started on prednisone as well and discharged. he continues to have symptoms and they got worse this morning. EMS arrived and found the patient with sats around 80%. He was treated with nebs, terbutiline, solu-medrol enroute, and his sats are better, but he is still really working hard to breath and doesn't feel any better. [facility] ED PFSH: Medical History Abnormal weight loss BPH (benign prostatic hyperplasia) Chronic obstructive pulmonary disease Elevated PSA Chronically elevated PSA, normal OBDULIA. Multiple other comorbidities including severe lung disease. Has adamantly refused biopsy Enlarged prostate Hypothyroidism Lung nodule Nicotine dependence, cigarettes, with other nicotine-induced disorders Tachycardia Surgical History History of lung biopsy S/P tonsillectomy Family History Mother , 75 Diabetes Father , 82 No problems noted. Social History Smoking and tobacco status: current every day smoker (1ppd) cigarettes Packs smoked per day: 0.5 Years cigarettes smoked: 50 [ Other cigarette details: Hx of 2 PPD x 50 Years, started at age 20] Alcohol intake: never Substance/Drug Use: never Marital status: / Current occupational status: retired Do you think of yourself as: Straight/Heterosexual Physical Exam Const: COMMON NORMALS: patient oriented x3, no limitations and alert GENERAL APPEARANCE: cooperative NUTRITIONAL APPEARANCE: cachectic HENMT: HEAD & SCALP: normal to inspection FACE & SINUS: normal facial exam Eye: GENERAL EYE: appearance normal, both eyes and all related structures Neck/C-Spine: COMMON NORMALS: supple, no meningeal signs and no JVD Chest: COMMONS NORMALS: normal inspection of the chest Resp: EFFORT & INSPECTION: Yes tachypneic, Yes respiratory distress, Yes labored, Yes retractions, Yes uses accessory muscles and Yes prolonged expiratory phase AUSCULTATION: wheezes and diminished lung sounds Cardio: COMMON NORMALS: no JVD, regular rate, regular rhythm and No murmurs present (Cardio) RATE: regular rate and tachycardic RHYTHM: regular rhythm GI: COMMON NORMALS: Normal to inspection, nondistended, normoactive bowel sounds present, Soft to palpation and non-tender INSPECTION: Yes normal to inspection AUSCULTATION: Yes normoactive bowel sounds PALPATION: Yes Soft to palpation Back/Pelvis: COMMON NORMALS: thoracic and lumbar spine normal to inspection Extremity: COMMON NORMALS: normal to inspection (no edema - cachectic) Neuro: COMMON NORMALS: patient oriented x3, moves all extremities, no focal motor deficits and no sensory deficits noted SENSORIUM/ORIENTATION: Yes alert MENINGEAL SIGNS: Yes no meningeal signs Psych: COMMON NORMALS: mental status grossly normal, cooperative and normal affect Skin: COMMON NORMALS: no rashes or lesions noted and turgor normal GENERAL SKIN EXAM: no rashes or lesions noted and turgor normal Course Vital Signs: Vital signs: Vital Signs Temperature 97.8 F 04/22/23 14:26 Pulse Rate 83 04/22/23 14:26 Respiratory Rate 19 H 04/22/23 14:26 Blood Pressure 114/74 04/22/23 14:26 Pulse Oximetry 99 04/22/23 14:26 Oxygen Delivery Me thod Nasal Cannula 04/22/23 14:26 Oxygen Flow Rate 3 04/22/23 14:26 Fraction of Inspir ed Oxygen 35 04/22/23 12:41 MDM - SOB/Dyspnea Medical Decision Making Severe SOB - sat 100%, however still markedly increased work of breathing. Treatment by EMS appropriate - will add IV magnesium, repeat nebs, try BiPap for work of breathing. CXR, EKG, trop, labs pending. Doubt other etiologies such as PE, CHF - although CHF possible and BNP ordered. Possible pneumonia, pneumothorax. CXR with hyperinflation, but no PTX, no pneumonia. Improved with continuous neb and BiPap - much more comfortable on re-evaluation. Will admit for continued treatment as he has failed attempts at outpatient management. Lab Data 04/22/23 09:29 04/22/23 09:29 Labs/Radiology: Radiology Impressions Chest X-Ray 04/22/23 09:11 IMPRESSION: No acute cardiopulmonary abnormality. Laboratory Results WBC 12.8 10^3/uL (4.0-10.0) H 04/22/23 09:29 RBC 4.17 10^6/uL (4.1-5.3) 04/22/23 09: Hgb 13.6 g/dL (11.7-16.6) 04/22/23 09: Hct 40.9 % (42.0-52.0) L 04/22/23 09: MCV 98.1 fl (80-94) H 04/22/23 09: MCH 32.6 pg (28.0-34.0) 04/22/23 09: MCHC 33.3 g/dL (30.0-36.0) 04/22/23 09: RDW 12.9 % (12.1-15.1) 04/22/23 09: Plt Count 367 10^3/cmm (130-400) 04/22/23 09: MPV 9.1 fL (7.4-10.4) 04/22/23 09: Neut % (Auto) 74.8 % 04/22/23 09: Lymph % (Auto) 17.3 % 04/22/23 09:29 [place] % (Auto) 7.0 % 04/22/23 09: Eos % (Auto) 0.2 % 04/22/23 09: Baso % (Auto) 0.0 % 04/22/23 09: Neut # (Auto) 9.56 10^3/uL (1.8-7.7) H 04/22/23 09: Lymph # (Auto) 2.2 10^3/uL (0.8-4.8) 04/22/23 09: Mcleod # (Auto) 0.9 10^3/uL (0.2-0.9) 04/22/23 09: Eos # (Auto) 0.0 10^3/uL (0.0-0.8) 04/22/23 09: Baso # (Auto) 0.0 10^3/uL (0.0-0.1) 04/22/23 09:29 Nucleated RBC % (auto) 0 % 04/22/23 09:29 Nucleated RBCs # 0.0 /100WBC 04/22/23 09:29 Specimen Type Arterial 04/22/23 09:20 Sample Site Radial, right 04/22/23 09:20 ABG pH 7.39 (7.35-7.45) 04/22/23 09:20 ABG pCO2 48.9 mmHg (35-45) H 04/22/23 09:20 ABG pO2 89.2 mmHg (80.0-100.0) 04/22/23 09:20 ABG HCO3 29.7 mmol/L (22-26) H 04/22/23 09:20 ABG Base Excess 3.7 mmol/L (-2.0-2.0) H 04/22/23 09:20 Dale Test Pos 04/22/23 09:20 Hematocrit 43.1 % (42-52) 04/22/23 09:20 O2 Delivery Device Nc 04/22/23 09:20 O2 Liters/Min 2.0 % 04/22/23 09:20 FiO2 28.0 % 04/22/23 09:20 Grounds Manager ID Gd 04/22/23 09:20 Sodium 139 mmol/L (136-145) 04/22/23 09:29 Potassium 4.1 mmol/L (3.5-5.1) 04/22/23 09:29 Chloride 98 mmol/L (98-107) 04/22/23 09:29 Carbon Dioxide 30 mmol/L (22-29) H 04/22/23 09:29 Anion Gap 15.1 (5-19) 04/22/23 09:29 BUN 15 mg/dL (8-23) 04/22/23 09:29 Creatinine 0.7 mg/dL (0.7-1.2) 04/22/23 09:29 GFR Calculation 111.5 mL/min (90-130) 04/22/23 09:29 Glucose 110 mg/dL (65-115) 04/22/23 09:29 Calculated Osmolality 289 mOsm/kg (285-295) 04/22/23 09:29 Calcium 9.1 mg/dL (8.5-10.5) 04/22/23 09:29 Magnesium 2.2 mg/dL (1.7-2.3) 04/22/23 09:29 Total Bilirubin 0.6 mg/dL (0.15-1.2) 04/22/23 09:29 AST 13 U/L (0-40) 04/22/23 09:29 ALT 12 U/L (0-41) 04/22/23 09:29 Alkaline Phosphatase 48 U/L (40-130) 04/22/23 09:29 Troponin T Baseline 22 ng/L (0-15) H 04/22/23 09:29 Troponin T 120 Minute 21.13 ng/L (0-15) H 04/22/23 11:15 Delta Troponin T -0.87 ABS# (0-10) L 04/22/23 11:15 NT-Pro-B Natriuret Pep 109 pg/mL (0-125) 04/22/23 09:29 Total Protein 6.3 g/dL (6.6-8.7) L 04/22/23 09:29 Albumin 4.1 g/dL (3.5-5.2) 04/22/23 09:29 Globulin 2.2 g/dL (1.3-4.6) 04/22/23 09:29 Discharge Plan Discharge Patient Disposition: Admitted As Inpatient Admit Provider: Charli Lomax Clinical Impression: Acute exacerbation of chronic obstructive pulmonary disease (COPD), Chronic respiratory failure with hypoxia, Acute respiratory distress Condition: Stable Coding Level of Care Code ED Processing Archivist for Amaya Norris
[2023-04-22 09:39] LABS: ABG PCO2 48.9 mmHg (35-45); ABG PH Result 7.39 (7.35-7.45); Arterial Blood Gas Hematocrit 43.1 % (42-52); Base Excess ABG 3.7 mmol/L (-2.0-2.0); Blood Gas Allen Test Pos; Blood Gas Operator Identificat GD; Blood Gas Sample Site Radial, right; Blood Gas Sample Type Arterial; HCO3 ABG 29.7 mmol/L (22-26); Oxygen Device NC; PO2 ABG 89.2 mmHg (80.0-100.0)
[2023-04-22 09:43] LABS: Eosinophils % 0.2 %; Hematocrit 40.9 % (42.0-52.0); Hemoglobin 13.6 g/dL (11.7-16.6); Lymphocytes # 2.2 10^3/uL (0.8-4.8); Lymphocytes % 17.3 %; Mean Corpuscular HGB Conc 33.3 g/dL (30.0-36.0); Mean Corpuscular Hemoglobin 32.6 pg (28.0-34.0); Mean Corpuscular Volume 98.1 fl (80-94); Mean Platelet Volume 9.1 fL (7.4-10.4); Monocytes # 0.9 10^3/uL (0.2-0.9); Neutrophils # 9.56 10^3/uL (1.8-7.7); Neutrophils % 74.8 %; Nucleated Red Blood Cells % 0 %; Platelet Count 367 10^3/cmm (130-400); Red Blood Count 4.17 10^6/uL (4.1-5.3); Red Cell Distribution Width 12.9 % (12.1-15.1); White Blood Count 12.8 10^3/uL (4.0-10.0)
[2023-04-22] MEDS: magnesium sulfate premix 2 GM/50 ML PIGGYBACK IV (10:01)
[2023-04-22 10:13] LABS: Troponin(5th) Baseline 22 ng/L (0-15)
[2023-04-22 10:23] LABS: Alanine Aminotransferase 12 U/L (0-41); Albumin Level 4.1 g/dL (3.5-5.2); Alkaline Phosphatase 48 U/L (40-130); Anion Gap 15.1 (5-19); Aspartate Amino Transferase 13 U/L (0-40); Blood Urea Nitrogen 15 mg/dL (8-23); Calcium 9.1 mg/dL (8.5-10.5); Carbon Dioxide 30 mmol/L (22-29); Chloride 98 mmol/L (98-107); Creatinine Clr Calc Pharmacy 60.6363; Globulin 2.2 g/dL (1.3-4.6); Glomerular Filtration Rate 111.5 mL/min (90-130); Glucose 110 mg/dL (65-115); Magnesium 2.2 mg/dL (1.7-2.3); NT Pro B Type Natriuretic Pept 109 pg/mL (0-125); Osmolality Calculated 289 mOsm/kg (285-295); Potassium 4.1 mmol/L (3.5-5.1); Sodium 139 mmol/L (136-145); Total Bilirubin 0.6 mg/dL (0.15-1.2); Total Protein 6.3 g/dL (6.6-8.7)
--- NOTE | 2023-04-22 11:01 | ECG_ITS ---
[facility] Test Date: 2023-04-22 Pat Name: Flavio Villareal Department: Room: Gender: Male Weed Controller: : 1950 Requested By: Luciana See Order Number: [id number] Jo Ann MD: Lex Perrin M.D. Measurements Intervals [place] Rate: 82 P: 83 [place]: 161 QRS: 83 QRSD: 82 T: 87 QT: 335 QTc: 392 Interpretive Statements SINUS RHYTHM WITH OCCASIONAL SUPRAVENTRICULAR PREMATURE COMPLEXES LOW QRS VOLTAGE IN PRECORDIAL LEADS [QRS DEFLECTION < 1.0 mV IN CHEST LEADS] Compared to ECG 04/22/2023 09:16:28 Sinus tachycardia no longer present Electronically Signed On 04-22-2023 12:09:32 CDT by Lex Perrin M.D. [id number]
[2023-04-22 12:08] LABS: Troponin 5 2HR 21.13 ng/L (0-15)
[2023-04-22 12:36] LABS: Troponin 5 2HR Delta -0.87 ABS# (0-10)
[2023-04-22] MEDS: albuterol 2.5 mg/3 mL Neb 10 MG INHALATION ×2 (12:38→13:43)
--- NOTE | 2023-04-22 13:07 | PM.HP ---
Providers/Chief Complaint Admitting Physician: Charli Lomax MD Primary Care Provider: ALESSANDRA Sofia Chief Complaint: SOB History of Present Illness Flavio Villareal is a 72 year old male with multiple comorbidities as listed below who presented via EMS with severe shortness of breath, found to be in respiratory distress requiring non-invasive mechanical ventilation. Patient reports symptoms started about a week ago. Reports exertion worsens symptoms. Reports using nebulizer without much help. Previously evaluated in ED and given prednisone. Reports symptoms worsened. Denies other alleviating or aggravating factors. Denies fevers, chills, nausea or emesis. Review of Systems Narrative: A complete review of systems was completed and found to be negative except where noted in HPI. Medications/Allergies Home Medications Medication Instructions Recorded Confirmed Last Taken Type montelukast 10 mg tablet 10 mg PO DAILY #30 tabs 06/21/21 04/22/23 04/22/23 Rx albuterol sulfate 90 mcg/actuation 2 puff inhalation Q4H PRN 12/29/21 04/22/23 05/07/22 Rx aerosol inhaler (Ventolin HFA) shortness of breath or wheezing #8.5 grams finasteride 5 mg tablet 5 mg PO DAILY #90 tabs 07/11/22 04/22/23 04/21/23 Rx fluticasone furoate 50 1 inh inhalation DAILY #30 ea 01/26/23 04/22/23 04/21/23 Rx mcg/actuation blister powder for inhalation (Arnuity Ellipta) prednisone 20 mg tablet 20 mg PO BID 7 days #14 tabs 04/19/23 04/22/23 04/22/23 Rx budesonide-formoterol HFA 160 1 puff inhalation BID 04/22/23 04/22/23 04/21/23 History mcg-4.5 mcg/actuation aerosol inhaler (Symbicort) doxycycline hyclate 100 mg tablet 100 mg PO BID 04/22/23 04/22/23 04/22/23 History ipratropium 0.5 mg-albuterol 3 mg 3 ml inhalation QID PRN Shortness 04/22/23 04/22/23 Unknown History (2.5 mg base)/3 mL nebulization Of Breath soln Allergies Allergy/AdvReac Type Severity Reaction Status Date / Time Iodinated Contrast Media Allergy NA Verified 01/26/23 15:57 PFSH Acute PFSH: Medical History Abnormal weight loss BPH (benign prostatic hyperplasia) Chronic obstructive pulmonary disease Elevated PSA Chronically elevated PSA, normal OBDULIA. Multiple other comorbidities including severe lung disease. Has adamantly refused biopsy Enlarged prostate Hypothyroidism Lung nodule Nicotine dependence, cigarettes, with other nicotine-induced disorders Tachycardia Surgical History History of lung biopsy S/P tonsillectomy Family History Mother , 75 Diabetes Father , 82 No problems noted. Social History Smoking and tobacco status: current every day smoker (1ppd) cigarettes Packs smoked per day: 0.5 Years cigarettes smoked: 50 [ Other cigarette details: Hx of 2 PPD x 50 Years, started at age 20] Alcohol intake: never Substance/Drug Use: never Marital status: / Current occupational status: retired Do you think of yourself as: Straight/Heterosexual Vitals/I&O/Wt Last Vital Signs Temp 98.2 F 04/22/23 09:08 Pulse 83 04/22/23 13:00 Resp 14 04/22/23 13:00 BP 117/66 04/22/23 13:00 Pulse Ox 100 04/22/23 13:00 O2 Del Method BiPAP 04/22/23 12:41 O2 Flow Rate 3 04/22/23 09:08 FiO2 35 04/22/23 12:41 04/21/23 04/22/23 04/22/23 22:59 06:59 14:59 Intake Total 50 / 50 Balance 50 / 50 Weight last 48 hrs Weight 49.895 kg Physical Exam Narrative: General: Patient is awake and alert. In moderate respiratory distress on BiPAP. Head: Normocephalic. Atraumatic. EOM intact. Neck: No JVD. Cardiovascular: RRR. No gallops. No murmurs. Lungs: Tachypnea. On BIPAP. Diffuse wheezing. In moderate respiratory distress. Skin: No jaundice. No rashes. Abdomen: Normal bowel sounds, abdomen soft and nontender. Genito Urinary: Genital exam not performed since complaints not related. Rectal: Rectal exam not performed since no symptoms indicated blood loss. Extremities: No cyanosis or clubbing. Musculoskeletal: Normal muscle mass. Neurological: No myoclonus. Moves all 4 extremities. Data 04/22/23 09:29 04/22/23 09:29 A&P Assessment and plan (1) Acute respiratory distress: (2) Acute exacerbation of chronic obstructive pulmonary disease (COPD): (3) Chronic respiratory failure with hypoxia: (4) Nicotine addiction: Plan Acute respiratory distress 2/2 acute COPD exacerbation -Start steroids -Start abx -Breathing treatments -Supportive care -Pulmonary toilet -BiPAP as tolerated BPH -Continue finasteride DVT ppx: Lovenox Code: Full Attestations Medical Necessity Statement*: Patient presents with COPD exacerbation requiring BIPAP with expected hospitalization not to cross 2 midnights. Coding Level of Care Code Acute Code for [facility] Fwd Diagnoses Acute respiratory distress R06.03 Acute exacerbation of chronic obstructive pulmonary disease (COPD) J44.1 Chronic respiratory failure with hypoxia J96.11 Nicotine addiction F17.200
--- NOTE | 2023-04-22 15:12 | ECG_ITS ---
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 Measurements Intervals [place] Rate: 92 P: 82 DE: 164 QRS: 82 QRSD: 80 T: 87 QT: 313 QTc: 388 Interpretive Statements SINUS RHYTHM LOW QRS VOLTAGE IN PRECORDIAL LEADS [QRS DEFLECTION < 1.0 mV IN CHEST LEADS] Compared to ECG 04/22/2023 11:01:49 No significant changes Electronically Signed On 04-22-2023 21:05:20 CDT by Lex Perrin M.D. [id number]
[2023-04-22 16:04] LABS: Troponin 5 6HR 16.98 ng/L (0-15)
[2023-04-22] MEDS: azithromycin 500 MG in sodium chloride 0.9% 250 ML 250 MG IV (16:10)
[2023-04-22] MEDS: albuterol 2.5 mg/3 mL Neb INHALATION ×2 (16:11→19:48)
[2023-04-22 16:13] LABS: Procalcitonin 0.06 ng/mL (0-0.5)
[2023-04-22 16:17] LABS: Troponin 5 6HR Delta -5.02 ng/L (0-12)
[2023-04-22] MEDS: budesonide 0.5 mg/2 mL Neb INHALATION (19:48)
[2023-04-22] MEDS: enoxaparin 40 mg/0.4 mL Syringe SUBCUT (21:38)
[2023-04-23] VITALS (12 sets, daily range): BP systolic 101–117; BP diastolic 58–74; PULSE 66–90; RESP 15–19; TEMP 36.4–36.8; O2SAT 92–100
[2023-04-23] MEDS: budesonide 0.5 mg/2 mL Neb INHALATION ×2 (07:12→19:27)
[2023-04-23] MEDS: albuterol 2.5 mg/3 mL Neb INHALATION ×3 (07:12→19:27)
[2023-04-23] MEDS: predniSONE 20 mg Tablet 40 MG PO (08:58)
[2023-04-23] MEDS: finasteride 5 mg Tablet PO (08:58)
[2023-04-23] MEDS: montelukast sodium 10 mg Tablet PO (08:58)
[2023-04-23] MEDS: ipratropium-albuterol 3 mL Neb INHALATION ×2 (11:11→15:18)
[2023-04-23] MEDS: azithromycin 500 MG in sodium chloride 0.9% 250 ML 250 MG IV (14:55)
--- NOTE | 2023-04-23 17:59 | PM.PN ---
Subjective Subjective: Patient reports his breathing is not any better. Reports shortness of breath at rest. Reports mild cough. Reports he has not really gotten out of bed. Endorses diffuse weakness and generalized malaise. Medications: Reviewed: Yes Vitals/I&O/Wt Last Vital Signs Temp 97.8 F 04/23/23 15:42 Pulse 80 04/23/23 15:42 Resp 19 H 04/23/23 15:42 BP 104/58 04/23/23 15:42 Pulse Ox 95 04/23/23 15:42 O2 Del Method Nasal Cannula 04/23/23 15:23 O2 Flow Rate 2 04/23/23 15:23 FiO2 35 04/22/23 12:41 04/23/23 04/23/23 04/23/23 06:59 14:59 22:59 Intake Total 360 / 360 410 / 770 Output Total 300 / 575 375 / 375 Balance -300 / -275 -15 / -15 410 / 395 Weight last 48 hrs Weight 49.895 kg Physical Exam Narrative: General: Patient is awake and alert. Frail and cachetic appearing. Head: Normocephalic. Atraumatic. EOM intact. Neck: No JVD. Cardiovascular: RRR. No gallops. No murmurs. Lungs: Tachypnea. Diffuse wheezing. Poor air movement. Skin: No jaundice. No rashes. Abdomen: Normal bowel sounds, abdomen soft and nontender. Extremities: No cyanosis or clubbing. Musculoskeletal: Normal muscle mass. Neurological: No myoclonus. Moves all 4 extremities. Data 04/22/23 09:29 04/22/23 09:29 A&P Assessment and plan (1) Acute respiratory distress: (2) Acute exacerbation of chronic obstructive pulmonary disease (COPD): (3) Chronic respiratory failure with hypoxia: (4) Nicotine addiction: Plan Acute respiratory distress 2/2 acute COPD exacerbation -Continue Zithromax -Continue prednisone -Breathing treatments -Supportive care -Pulmonary toilet -BiPAP as tolerated -Consider pulm consult Debility and physical deconditioning -Anticipate therapy consult when breathing improves BPH -Continue finasteride DVT ppx: Lovenox Code: Full Attestations Medical Necessity Statement*: Patient requires ongoing hospitalization for IV abx, breathing treatments, further work up and supportive care. Coding Level of Care Code Acute Code for [facility] Fwd Diagnoses Acute respiratory distress R06.03 Acute exacerbation of chronic obstructive pulmonary disease (COPD) J44.1 Chronic respiratory failure with hypoxia J96.11 Nicotine addiction F17.200
[2023-04-23] MEDS: enoxaparin 40 mg/0.4 mL Syringe SUBCUT (20:21)
[2023-04-24] VITALS (15 sets, daily range): BP systolic 96–110; BP diastolic 63–72; PULSE 70–101; RESP 16–18; TEMP 36.2–36.8; O2SAT 93–99
[2023-04-24 05:36] LABS: Basophils % 0.1 %; Eosinophils % 0.4 %; Hematocrit 37.2 % (42.0-52.0); Hemoglobin 12.6 g/dL (11.7-16.6); Lymphocytes # 2.6 10^3/uL (0.8-4.8); Mean Corpuscular HGB Conc 33.9 g/dL (30.0-36.0); Mean Corpuscular Hemoglobin 33.1 pg (28.0-34.0); Mean Corpuscular Volume 97.6 fl (80-94); Mean Platelet Volume 9.2 fL (7.4-10.4); Monocytes # 0.8 10^3/uL (0.2-0.9); Monocytes % 8.5 %; Neutrophils # 6.31 10^3/uL (1.8-7.7); Neutrophils % 64.3 %; Nucleated Red Blood Cells % 0 %; Platelet Count 282 10^3/cmm (130-400); Red Blood Count 3.81 10^6/uL (4.1-5.3); Red Cell Distribution Width 12.9 % (12.1-15.1); White Blood Count 9.8 10^3/uL (4.0-10.0)
[2023-04-24 05:50] LABS: Albumin Level 3.3 g/dL (3.5-5.2); Anion Gap 9.9 (5-19); Blood Urea Nitrogen 14 mg/dL (8-23); Calcium 8.5 mg/dL (8.5-10.5); Carbon Dioxide 31 mmol/L (22-29); Chloride 100 mmol/L (98-107); Glomerular Filtration Rate 164.4 mL/min (90-130); Glucose 73 mg/dL (65-115); Magnesium 2.2 mg/dL (1.7-2.3); Phosphorus 3.6 mg/dL (2.5-4.5); Potassium 3.9 mmol/L (3.5-5.1); Sodium 137 mmol/L (136-145)
[2023-04-24 06:03] LABS: Creatinine Clr Calc Pharmacy 60.6363
[2023-04-24] MEDS: albuterol 2.5 mg/3 mL Neb INHALATION ×2 (08:23→11:27)
[2023-04-24] MEDS: budesonide 0.5 mg/2 mL Neb INHALATION ×2 (08:24→19:53)
[2023-04-24] MEDS: montelukast sodium 10 mg Tablet PO (08:26)
[2023-04-24] MEDS: finasteride 5 mg Tablet PO (08:26)
[2023-04-24] MEDS: predniSONE 20 mg Tablet 40 MG PO (08:27)
[2023-04-24] MEDS: dexamethasone 10 mg/mL INJ IVP (11:07)
--- NOTE | 2023-04-24 13:29 | PM.PN ---
Subjective Subjective: Patient was seen and examined this morning, he is still complaining of significant shortness of breath, particularly with exertion, and also has significant conversational shortness of breath. Will change p.o. prednisone to dexamethasone IV. Medications: Reviewed: Yes Medication Review Details: Generic Name Dose Route Start Last Admin Trade Name Freq PRN Reason Stop Dose Admin Albuterol Sulfate 2.5 mg 04/22/23 16:00 04/24/23 11:27 Albuterol 2.5 Mg /3 Ml Neb INHALATION 2.5 mg QID.RESPIRATORY S CH Administration Albuterol/Ipratrop ium 3 ml 04/22/23 15:29 04/23/23 15:18 Ipratropium-Albu terol 3 Ml Neb INHALATION 3 ml Q4H PRN Administration Shortness Of Nilsa th Budesonide 0.5 mg 04/22/23 20:00 04/24/23 08:24 Budesonide 0.5 M g/2 Ml Neb INHALATION 0.5 mg BID.RESPIRATORY S CH Administration Dexamethasone 10 mg 04/24/23 11:00 04/24/23 11:07 Dexamethasone 10 Mg/Ml Inj IVP 10 mg Q24H KALE Administration Enoxaparin Sodium 40 mg 04/22/23 21:00 04/23/23 20:21 Enoxaparin 40 Mg /0.4 Ml Syringe SUBCUT 40 mg Q24H KALE Administration Finasteride 5 mg 04/23/23 09:00 04/24/23 08:26 Finasteride 5 Mg Tablet PO 5 mg DAILY KALE Administration Azithromycin 500 m g/ Sodium 250 mls @ 250 mls /hr 04/22/23 15:45 04/23/23 16:10 Chloride IV Infused Q24H KALE Infusion Protocol Montelukast Sodium 10 mg 04/23/23 09:00 04/24/23 08:26 Montelukast Sodi um 10 Mg Tablet PO 10 mg DAILY KALE Administration Vitals/I&O/Wt Last Vital Signs Temp 97.6 F 04/24/23 11:35 Pulse 84 04/24/23 11:35 Resp 18 04/24/23 11:35 BP 97/63 04/24/23 11:35 Pulse Ox 96 04/24/23 11:35 O2 Del Method Nasal Cannula 04/24/23 11:35 O2 Flow Rate 2 04/24/23 11:28 FiO2 35 04/22/23 12:41 04/23/23 04/24/23 04/24/23 22:59 06:59 14:59 Intake Total 530 / 890 480 / 480 Output Total 400 / 775 400 / 1175 200 / 200 Balance 130 / 115 -400 / -285 280 / 280 Physical Exam Const: COMMON NORMALS: patient oriented x3 HENMT: COMMON NORMALS: normocephalic and atraumatic HEAD & SCALP: normocephalic and atraumatic Resp: COMMON NORMALS: clear to auscultation bilaterally EFFORT & INSPECTION: Yes symmetric chest movement AUSCULTATION: clear to auscultation bilaterally OTHER: Significantly diminished air entry bilaterally Cardio: COMMON NORMALS: regular rate, regular rhythm, S1 normal heart sound present, S2 normal heart sound present, No gallops present (Cardio), No murmurs present (Cardio), No rub (Cardio) and Peripheral pulses 2+ throughout RATE: regular rate RHYTHM: regular rhythm HEART SOUNDS: S1 normal heart sound present and S2 normal heart sound present PERIPHERAL PULSES: Peripheral pulses 2+ throughout GI: COMMON NORMALS: Normal to inspection, nondistended, normoactive bowel sounds present, Soft to palpation, non-tender, No hepatosplenomegaly present and no masses AUSCULTATION: Yes normoactive bowel sounds PALPATION: Yes Soft to palpation and Yes No hepatosplenomegaly present RECTAL EXAM: Yes deferred Extremity: COMMON NORMALS: no clubbing, cyanosis or edema and no pedal edema Neuro: COMMON NORMALS: patient oriented x3 Data 04/24/23 04:52 04/24/23 04:52 A&P Assessment and plan (1) Acute respiratory distress: (2) Acute exacerbation of chronic obstructive pulmonary disease (COPD): (3) Chronic respiratory failure with hypoxia: (4) Nicotine addiction: Plan Acute respiratory distress 2/2 acute COPD exacerbation -Continue Zithromax -Continue duo nebs, as well as budesonide inhaler -Supplemental oxygen as needed -BiPAP as tolerated Debility and physical deconditioning -Anticipate therapy consult when breathing improves BPH -Continue finasteride DVT ppx: Lovenox Code: Full Attestations Medical Necessity Statement*: Needs to be in hospital for management of respiratory distress, need for IV steroids. Coding Level of Care Code Acute Code for g Fwd Diagnoses Acute respiratory distress R06.03 Acute exacerbation of chronic obstructive pulmonary disease (COPD) J44.1 Chronic respiratory failure with hypoxia J96.11 Nicotine addiction F17.200
[2023-04-24] MEDS: ipratropium-albuterol 3 mL Neb INHALATION ×2 (14:52→19:53)
[2023-04-24] MEDS: azithromycin 250 mg Tablet 500 MG PO (16:15)
[2023-04-24] MEDS: enoxaparin 40 mg/0.4 mL Syringe SUBCUT (20:46)
[2023-04-25] VITALS (7 sets, daily range): BP systolic 100–132; BP diastolic 63–86; PULSE 67–85; RESP 16–19; TEMP 36.2–36.7; O2SAT 90–100
[2023-04-25] MEDS: ipratropium-albuterol 3 mL Neb INHALATION ×2 (01:01→07:32)
[2023-04-25 03:36] LABS: Basophils % 0.1 %; Hematocrit 36.4 % (42.0-52.0); Hemoglobin 12.2 g/dL (11.7-16.6); Lymphocytes # 1.4 10^3/uL (0.8-4.8); Lymphocytes % 11.1 %; Mean Corpuscular HGB Conc 33.5 g/dL (30.0-36.0); Mean Corpuscular Hemoglobin 32.5 pg (28.0-34.0); Mean Corpuscular Volume 97.1 fl (80-94); Mean Platelet Volume 9.4 fL (7.4-10.4); Monocytes # 1.2 10^3/uL (0.2-0.9); Monocytes % 9.8 %; Neutrophils # 9.56 10^3/uL (1.8-7.7); Neutrophils % 77.7 %; Nucleated Red Blood Cells % 0 %; Platelet Count 290 10^3/cmm (130-400); Red Blood Count 3.75 10^6/uL (4.1-5.3); Red Cell Distribution Width 12.6 % (12.1-15.1); White Blood Count 12.3 10^3/uL (4.0-10.0)
[2023-04-25 03:58] LABS: Alanine Aminotransferase 12 U/L (0-41); Albumin Level 3.3 g/dL (3.5-5.2); Alkaline Phosphatase 45 U/L (40-130); Anion Gap 10.5 (5-19); Aspartate Amino Transferase 9 U/L (0-40); Blood Urea Nitrogen 16 mg/dL (8-23); Calcium 8.6 mg/dL (8.5-10.5); Carbon Dioxide 30 mmol/L (22-29); Chloride 100 mmol/L (98-107); Globulin 1.9 g/dL (1.3-4.6); Glomerular Filtration Rate 164.4 mL/min (90-130); Glucose 83 mg/dL (65-115); Osmolality Calculated 282 mOsm/kg (285-295); Potassium 4.5 mmol/L (3.5-5.1); Sodium 136 mmol/L (136-145); Total Bilirubin 0.4 mg/dL (0.15-1.2); Total Protein 5.2 g/dL (6.6-8.7)
[2023-04-25 04:07] LABS: Creatinine Clr Calc Pharmacy 60.6363
[2023-04-25] MEDS: budesonide 0.5 mg/2 mL Neb INHALATION (07:32)
[2023-04-25] MEDS: finasteride 5 mg Tablet PO (08:33)
[2023-04-25] MEDS: montelukast sodium 10 mg Tablet PO (08:33)
[2023-04-25] MEDS: dexamethasone 10 mg/mL INJ IVP (10:30)
--- NOTE | 2023-04-25 13:07 | PC.NURSE ---
Nebulizer medications called into [facility]. Patient updated.
--- NOTE | 2023-04-25 17:21 | PM.DCS ---
Discharge Providers Date of Admission: 04/23/23 18:26 Date of Discharge: April 25, 2023 Attending Provider at Admission: Charli Lomax MD Attending Provider at Discharge: Rogerio Coffey MD Primary Care Provider: ALESSANDRA Sofia Diagnoses at Discharge Discharge Diagnosis (1) Acute respiratory distress: Status: Acute (2) Acute exacerbation of chronic obstructive pulmonary disease (COPD): Status: Acute (3) Chronic respiratory failure with hypoxia: Status: Acute (4) Nicotine addiction: Status: Acute Reason for Visit Reason for Visit: SOB Hospital Course Hospital Course HPI: Charli Lomax MD 72 year old male with multiple comorbidities as listed below who presented via EMS with severe shortness of breath, found to be in respiratory distress requiring non-invasive mechanical ventilation.? Patient reports symptoms started about a week ago.? Reports exertion worsens symptoms.? Reports using nebulizer without much help.? Previously evaluated in ED and given prednisone.? Reports symptoms worsened.? Denies other alleviating or aggravating factors.? Denies fevers, chills, nausea or emesis.? Hospital course: Patient was admitted for the management of respiratory distress secondary to acute COPD exacerbation, patient was managed conservatively with initially oral steroids then IV steroids, DuoNebs, supplemental oxygen as needed, azithromycin, pulmonary toilet BiPAP as needed, he responded fairly well, to above medical management, at the time of discharge shortness of breath had improved, he was afebrile, hemodynamically stable, he was discharged on p.o. prednisone, for another 5 days. He was continued on his home inhalers as well as on DuoNebs.He will follow his PCP as well as pulmonary as outpatient. Physical Exam Const: COMMON NORMALS: patient oriented x3 HENMT: COMMON NORMALS: normocephalic and atraumatic HEAD & SCALP: normocephalic and atraumatic Resp: COMMON NORMALS: clear to auscultation bilaterally EFFORT & INSPECTION: Yes symmetric chest movement AUSCULTATION: clear to auscultation bilaterally OTHER: Significantly diminished air entry bilaterally Cardio: COMMON NORMALS: regular rate, regular rhythm, S1 normal heart sound present, S2 normal heart sound present, No gallops present (Cardio), No murmurs present (Cardio), No rub (Cardio) and Peripheral pulses 2+ throughout RATE: regular rate RHYTHM: regular rhythm HEART SOUNDS: S1 normal heart sound present and S2 normal heart sound present PERIPHERAL PULSES: Peripheral pulses 2+ throughout GI: COMMON NORMALS: Normal to inspection, nondistended, normoactive bowel sounds present, Soft to palpation, non-tender, No hepatosplenomegaly present and no masses AUSCULTATION: Yes normoactive bowel sounds PALPATION: Yes Soft to palpation and Yes No hepatosplenomegaly present RECTAL EXAM: Yes deferred Extremity: COMMON NORMALS: no clubbing, cyanosis or edema and no pedal edema Neuro: COMMON NORMALS: patient oriented x3 Discharge Data Studies Completed and Pending Completed Studies During Hospitalization Category Date Time Status XR chest 1V portable [id number] Stat Exams 04/22/23 09:11 Completed Radiology Impressions Chest X-Ray 04/22/23 09:11 IMPRESSION: No acute cardiopulmonary abnormality. Laboratory Results WBC 12.3 10^3/uL (4.0-10.0) H 04/25/23 02:58 RBC 3.75 10^6/uL (4.1-5.3) L 04/25/23 02:58 Hgb 12.2 g/dL (11.7-16.6) 04/25/23 02:58 Hct 36.4 % (42.0-52.0) L 04/25/23 02:58 MCV 97.1 fl (80-94) H 04/25/23 02:58 MCH 32.5 pg (28.0-34.0) 04/25/23 02:58 MCHC 33.5 g/dL (30.0-36.0) 04/25/23 02:58 RDW 12.6 % (12.1-15.1) 04/25/23 02:58 Plt Count 290 10^3/cmm (130-400) 04/25/23 02:58 MPV 9.4 fL (7.4-10.4) 04/25/23 02:58 Neut % (Auto) 77.7 % 04/25/23 02:58 Lymph % (Auto) 11.1 % 04/25/23 02:58 [place] % (Auto) 9.8 % 04/25/23 02:58 Eos % (Auto) 0.0 % 04/25/23 02:58 Baso % (Auto) 0.1 % 04/25/23 02:58 Neut # (Auto) 9.56 10^3/uL (1.8-7.7) H 04/25/23 02:58 Lymph # (Auto) 1.4 10^3/uL (0.8-4.8) 04/25/23 02:58 [place] # (Auto) 1.2 10^3/uL (0.2-0.9) H 04/25/23 02:58 Eos # (Auto) 0.0 10^3/uL (0.0-0.8) 04/25/23 02:58 Baso # (Auto) 0.0 10^3/uL (0.0-0.1) 04/25/23 02:58 Nucleated RBC % (auto) 0 % 04/25/23 02:58 Nucleated RBCs # 0.0 /100WBC 04/25/23 02:58 Specimen Type Arterial 04/22/23 09:20 Sample Site Radial, right 04/22/23 09:20 ABG pH 7.39 (7.35-7.45) 04/22/23 09:20 ABG pCO2 48.9 mmHg (35-45) H 04/22/23 09:20 ABG pO2 89.2 mmHg (80.0-100.0) 04/22/23 09:20 ABG HCO3 29.7 mmol/L (22-26) H 04/22/23 09:20 ABG Base Excess 3.7 mmol/L (-2.0-2.0) H 04/22/23 09:20 [place] Test Pos 04/22/23 09:20 Hematocrit 43.1 % (42-52) 04/22/23 09:20 O2 Delivery Device Nc 04/22/23 09:20 O2 Liters/Min 2.0 % 04/22/23 09:20 FiO2 28.0 % 04/22/23 09:20 Corporation Secretary ID Gd 04/22/23 09:20 Sodium 136 mmol/L (136-145) 04/25/23 02:58 Potassium 4.5 mmol/L (3.5-5.1) 04/25/23 02:58 Chloride 100 mmol/L (98-107) 04/25/23 02:58 Carbon Dioxide 30 mmol/L (22-29) H 04/25/23 02:58 Anion Gap 10.5 (5-19) 04/25/23 02:58 BUN 16 mg/dL (8-23) 04/25/23 02:58 Creatinine 0.5 mg/dL (0.7-1.2) L 04/25/23 02:58 GFR Calculation 164.4 mL/min (90-130) H 04/25/23 02:58 Glucose 83 mg/dL (65-115) 04/25/23 02:58 Calculated Osmolality 282 mOsm/kg (285-295) L 04/25/23 02:58 Calcium 8.6 mg/dL (8.5-10.5) 04/25/23 02:58 Phosphorus 3.6 mg/dL (2.5-4.5) 04/24/23 04:52 Magnesium 2.2 mg/dL (1.7-2.3) 04/24/23 04:52 Total Bilirubin 0.4 mg/dL (0.15-1.2) 04/25/23 02:58 AST 9 U/L (0-40) 04/25/23 02:58 ALT 12 U/L (0-41) 04/25/23 02:58 Alkaline Phosphatase 45 U/L (40-130) 04/25/23 02:58 Troponin T Baseline 22 ng/L (0-15) H 04/22/23 09:29 Troponin T 120 Minute 21.13 ng/L (0-15) H 04/22/23 11:15 Delta Troponin T -0.87 ABS# (0-10) L 04/22/23 11:15 Troponin T Hi Sens 6Hr 16.98 ng/L (0-15) H 04/22/23 15:25 Troponin T Hi Sens 6Hr Delta -5.02 ng/L (0-12) L 04/22/23 15:25 C-Reactive Protein 3.0 mg/L (0.0-4.9) 04/22/23 15:25 NT-Pro-B Natriuret Pep 109 pg/mL (0-125) 04/22/23 09:29 Total Protein 5.2 g/dL (6.6-8.7) L 04/25/23 02:58 Albumin 3.3 g/dL (3.5-5.2) L 04/25/23 02:58 Globulin 1.9 g/dL (1.3-4.6) 04/25/23 02:58 Procalcitonin 0.06 ng/mL (0-0.5) 04/22/23 15:25 Vitals Last Vital Signs Temp 98.1 F 04/25/23 13:33 Pulse 85 04/25/23 13:33 Resp 19 H 04/25/23 13:33 BP 100/63 04/25/23 13:33 Pulse Ox 100 04/25/23 13:33 O2 Del Method Nasal Cannula 04/25/23 12:00 O2 Flow Rate 2 04/25/23 07:33 FiO2 35 04/22/23 12:41 Discharge Plan Discharge Patient Disposition: Home Condition: Stable Prescriptions: Continued montelukast 10 mg tablet 10 mg PO DAILY Qty: 30 3RF Arnuity Ellipta 50 mcg/actuation blister with device 1 inh inhalation DAILY Qty: 30 3RF albuterol sulfate [Ventolin HFA] 90 mcg/actuation HFA aerosol inhaler 2 puff inhalation Q4H PRN (Reason: shortness of breath or wheezing) Qty: 8.5 3RF finasteride 5 mg tablet 5 mg PO DAILY Qty: 90 3RF prednisone 20 mg tablet 20 mg PO BID 7 Days Qty: 14 0RF doxycycline hyclate 100 mg tablet 100 mg PO BID Symbicort 160-4.5 mcg/actuation HFA aerosol inhaler 1 puff INHALATION BID ipratropium-albuterol 0.5 mg-3 mg(2.5 mg base)/3 mL solution for nebulization 3 ml inhalation QID Qty: 180 3RF Discharge Orders: Discharge Order (Routine); Ordered 04/25/23 Ordered By: Rogerio Coffey Referrals: Reena Cotter FNP [Primary Care Provider] - 05/02/23 2:45 pm Patient Instructions: COPD (Chronic Obstructive Pulmonary Disease) (GEN), Opioid Safety Discharge Attestations Time Spent in Discharge Care*: less than 30 min Quality Metrics Clinical Quality Measures [ No reported AMI, CVA or VTE this stay] Coding Level of Care Code Acute Code for [facility] Fwd Diagnoses Acute respiratory distress R06.03 Acute exacerbation of chronic obstructive pulmonary disease (COPD) J44.1 Chronic respiratory failure with hypoxia J96.11 Nicotine addiction F17.200
== END 2023-04-25 13:34 | disposition home or self-care (01) | DRG 191 ==
LOC: ER 10:57 → MEDSURG 13:34
PROVIDERS: Admitting Provider Internal Medicine; Emergency Provider Emergency Medicine; PCP Nurse Practitioner Family; Visit Provider Internal Medicine
DX: J44.1 Chronic obstructive pulmonary disease with (acute) exacerbation (principal); J96.11 Chronic respiratory failure with hypoxia; F17.210 Nicotine dependence, cigarettes, uncomplicated; Z99.81 Dependence on supplemental oxygen; N40.0 Benign prostatic hyperplasia without lower urinary tract symptoms; E03.9 Hypothyroidism, unspecified; R53.81 Other malaise
CPT/HCPCS: 36415; 36600; 71045; 80053; 80069; 82803; 83735; 83880; 84145; 84484; 85025; 86140; 93005; 94640; 94660; 94664; 96365; 96372; 99285; G0378; J0456; J1100; J1650; J3475; J7050; J7512; J7613; J7626; Q0144

== ENCOUNTER 2023-11-08 10:24 | Inpatient (IN) | payer MEDICARE, MEDICAID, SELFPAY ==
[2023-11-08] VITALS (14 sets, daily range): BP systolic 92–121; BP diastolic 59–77; PULSE 86–119; RESP 17–30; TEMP 36.6–36.7; O2SAT 93–98; BMI 13.2; BMI 13.6
--- NOTE | 2023-11-08 09:57 | ECG_ITS ---
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 Measurements Intervals [place] Rate: 94 P: 84 [place]: 172 QRS: 85 QRSD: 66 T: 89 QT: 305 QTc: 381 Interpretive Statements SINUS RHYTHM LOW QRS VOLTAGE IN PRECORDIAL LEADS [QRS DEFLECTION < 1.0 mV IN CHEST LEADS] SEPTAL MYOCARDIAL INFARCTION , OF INDETERMINATE AGE [40+ ms Q WAVE IN V1/V2] Compared to ECG 04/22/2023 15:31:28 Myocardial infarct finding now present Electronically Signed On 11-08-2023 22:22:14 BUFFET RUNNER by Brandi Andersen M.D. [id number]
--- NOTE | 2023-11-08 10:38 | XRR_ITS ---
PROCEDURE INFORMATION: Exam: XR Chest Exam date and time: 11/08/2023 10:47 AM Age: 73 years old Clinical indication: Condition or disease; Lung condition and disease; Copd; Complications not specified; Cough and dyspnea; Additional info: Dyspnea/cough TECHNIQUE: Imaging protocol: Radiologic exam of the chest. Views: 1 view. COMPARISON: CR (CHEST, ) 04/22/2023 9:37 AM FINDINGS: Lungs: Emphysematous COPD. Pleural spaces: Unremarkable. No pleural effusion. No pneumothorax. Heart/Mediastinum: Unremarkable. No cardiomegaly. Bones/joints: Unremarkable. XR/XR chest 1V portable [id number] IMPRESSION: No acute cardiopulmonary disease.
--- NOTE | 2023-11-08 10:46 | ECG_ITS ---
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 Measurements Intervals [place] Rate: 120 P: 84 [place]: 153 QRS: 82 QRSD: 83 T: 87 QT: 277 QTc: 392 Interpretive Statements SINUS TACHYCARDIA LOW QRS VOLTAGE IN PRECORDIAL LEADS [QRS DEFLECTION < 1.0 mV IN CHEST LEADS] ABNORMAL RHYTHM ECG Compared to ECG 04/22/2023 15:31:28 Sinus rhythm no longer present Electronically Signed On 11-08-2023 11:04:19 RECONSTRUCTIVE DENTIST by Brandi Andersen M.D. [id number]
[2023-11-08 11:03] LABS: Basophils # 0.1 10^3/uL (0.0-0.1); Basophils % 0.3 %; Lymphocytes # 1.8 10^3/uL (0.8-4.8); Mean Corpuscular Hemoglobin 34.3 pg (27-33); Mean Corpuscular Volume 100.9 fl (82-101); Mean Platelet Volume 9.6 fL (7.4-10.4); Monocytes # 2.7 10^3/uL (0.2-0.9); Monocytes % 10.6 %; Neutrophils # 20.92 10^3/uL (1.8-7.7); Neutrophils % 81.3 %; Nucleated Red Blood Cells % 0 %; Platelet Count 345 10^3/cmm (157-399); Red Blood Count 3.47 10^6/uL (3.85-5.65); Red Cell Distribution Width 13.5 % (12.1-15.1); White Blood Count 25.74 10^3/uL (3.29-11.43)
[2023-11-08 11:03] LABS: ABG PCO2 46.9 mmHg (35-45); ABG PH Result 7.41 (7.35-7.45); Alveolar-Arterial Oxygen Gradi 2.6 mmHg (5-10); Base Excess ABG 3.9 mmol/L (-2.0-2.0); Blood Gas Allen Test Pos; Blood Gas Operator Identificat WALCI; Blood Gas Sample Site Radial, right; Blood Gas Sample Type Arterial; Carboxyhemoglobin 2.1 %THgb (0.4-20.1); HCO3 ABG 29.4 mmol/L (22-26); HGB O2 Sat 93.3 % (95-100); Ionized Calcium Level - ABG 1.2 mmol/L (1.1-1.4); Methemoglobin 0.7 % (0.4-1.5); Oxygen Device NC; PO2 ABG 73.6 mmHg (80.0-100.0); Potassium Level - ABG 4.1 mmol/L (3.5-5.0); Total Hemoglobin 12.1 g/dL (14-18)
[2023-11-08] MEDS: ipratropium-albuterol 3 mL Neb INHALATION ×3 (11:08→20:15)
[2023-11-08 11:21] LABS: Alanine Aminotransferase 13 U/L (0-41); Albumin Level 3.9 g/dL (3.5-5.2); Alkaline Phosphatase 56 U/L (40-130); Anion Gap 14.3 (5-19); Aspartate Amino Transferase 12 U/L (0-40); Blood Urea Nitrogen 14 mg/dL (8-23); Carbon Dioxide 28 mmol/L (22-29); Chloride 99 mmol/L (98-107); Globulin 2.9 g/dL (1.3-4.6); Glucose 166 mg/dL (65-115); Osmolality Calculated 288 mOsm/kg (285-295); Potassium 4.3 mmol/L (3.5-5.1); Sodium 137 mmol/L (136-145); Total Bilirubin 1.2 mg/dL (0.15-1.2); Total Protein 6.8 g/dL (6.6-8.7)
--- NOTE | 2023-11-08 11:37 | W.ED.SOB ---
HPI - SOB/Dyspnea General: Chief Complaint: Shortness of Breath/Dyspnea Stated Complaint: Copd Exacerbation Time Seen by Provider: 11/08/23 10:38 Source: patient Mode of arrival: EMS History of Present Illness: HPI Narrative: 73-year-old male presents emergency room with complaint of cough and shortness of breath. Patient has a history of COPD is chronically on 2 L per nasal cannula yesterday began having more difficulty with shortness of breath and work of breathing he uses albuterol every 6 hours via nebulizer and has not been responding well to it. He denies any fever sweats or chills or change in his baseline productive cough. MD elicited complaint: shortness of breath and cough Pertinent past history: COPD Onset (ago): day(s) Timing: constant Severity: moderate Exacerbating factors: exertion and coughing Relieving factors: rest and bronchodilators Known history of: COPD Associated symptoms: Reports chest pain and cough; Deny abdominal pain, chest congestion, diaphoresis, dizziness, extremity pain, fever(s), hemoptysis, lightheadedness, myalgias, nausea, orthopnea, palpitations, paresthesias, polydipsia, polyuria, rash, sense of impending doom, syncope or vomiting Treatment prior to arrival: oxygen and bronchodilator Related Data: Home oxygen amount: 2 liters Review of Systems Const: Denies: fever(s) or diaphoresis Card: Reports: chest pain; Denies: palpitations, lightheadedness, syncope or orthopnea Resp: Denies: hemoptysis or chest congestion GI: Denies: abdominal pain, nausea or vomiting : Denies: dysuria, urinary frequency or urinary urgency Musc: Denies: extremity pain Skin/Breast: Denies: rash Neuro: Denies: dizziness Endo: Denies: polyuria or polydipsia PFS ED PFSH: Medical History (Updated 11/08/23 @ 16:02 by Salazar Bonilla MD) Acute exacerbation of chronic obstructive pulmonary disease (COPD) Acute respiratory distress Hypothyroidism Lung nodule Nicotine dependence, cigarettes, with other nicotine-induced disorders Enlarged prostate Abnormal weight loss Tachycardia Chronic obstructive pulmonary disease Nicotine addiction Chronic respiratory failure with hypoxia Elevated PSA Chronically elevated PSA, normal OBDULIA. Multiple other comorbidities including severe lung disease. Has adamantly refused biopsy BPH (benign prostatic hyperplasia) Surgical History S/P tonsillectomy History of lung biopsy Family History Mother , 75 Diabetes Father , 82 No problems noted. Social History Smoking and tobacco/nicotine status: current every day tobacco/nicotine user (1ppd) cigarettes Packs smoked per day: 0.5 Years cigarettes smoked: 50 [ Other cigarette details: Hx of 2 PPD x 50 Years, started at age 20] Alcohol intake: never Substance/Drug Use: never Marital status: / Current occupational status: retired Do you think of yourself as: Straight/Heterosexual Physical Exam Const: COMMON NORMALS: no acute distress GENERAL APPEARANCE: cooperative and comfortable ORIENTATION/CONSCIOUSNESS: Yes awake, Yes oriented to person, Yes oriented to place and Yes oriented to time HENMT: COMMON NORMALS: normocephalic, atraumatic and hearing grossly normal bilaterally HEAD & SCALP: normocephalic and atraumatic Resp: COMMON NORMALS: normal respiratory effort, No retractions, No use of accessory muscles and clear to auscultation bilaterally AUSCULTATION: clear to auscultation bilaterally Cardio: COMMON NORMALS: regular rate, regular rhythm and No murmurs present (Cardio) RATE: regular rate RHYTHM: regular rhythm GI: COMMON NORMALS: Soft to palpation and No hepatosplenomegaly present AUSCULTATION: Yes normoactive bowel sounds PALPATION: Yes Soft to palpation, No Tenderness to palpation present (GI), No Guarding due to palpation present (GI) and Yes No hepatosplenomegaly present Extremity: COMMON NORMALS: normal to inspection, capillary refill normal, no clubbing, cyanosis or edema, no calf tenderness and no pedal edema Neuro: SENSORIUM/ORIENTATION: Yes oriented to person, Yes oriented to place and Yes oriented to time Skin: COMMON NORMALS: no rashes or lesions noted GENERAL SKIN EXAM: no rashes or lesions noted Course Vital Signs: Vital signs: Vital Signs Temperature 98.1 F 11/08/23 10:33 Pulse Rate 93 11/08/23 13:39 Respiratory Rate 26 H 11/08/23 13:39 Blood Pressure 93/63 11/08/23 13:39 Pulse Oximetry 97 11/08/23 13:39 Oxygen Delivery Me thod Nasal Cannula 11/08/23 13:39 Oxygen Flow Rate 2 11/08/23 13:39 MDM - SOB/Dyspnea Medical Decision Making Acute exacerbation COPD. He was feeling a little better after the nebulizers but just repeat exam sitting him up in bed he became more short of breath and his heart rate shot up to 120s. He is on prednisone chronically. Will cover with antibiotics continue aggressive pulmonary toilet and steroids. Labs and imaging reviewed discussed with patient discussed with hospitalist will admit Medical Records I reviewed the patient's medical records. Lab Data I reviewed the patient's lab results. 11/08/23 10:53 11/08/23 10:53 Labs/Radiology: Radiology Impressions Chest X-Ray 11/08/23 10:38 IMPRESSION: No acute cardiopulmonary disease. Laboratory Results WBC 25.74 10^3/uL (3.29-11.43) H 11/08/23 10:53 RBC 3.47 10^6/uL (3.85-5.65) L 11/08/23 10:53 Hgb 11.90 g/dL (11.27-16.99) 11/08/23 10:53 Hct 35.0 % (37-53) L 11/08/23 10:53 MCV 100.9 fl (82-101) 11/08/23 10:53 MCH 34.3 pg (27-33) H 11/08/23 10:53 MCHC 34.0 g/dL (30-55) 11/08/23 10:53 RDW 13.5 % (12.1-15.1) 11/08/23 10:53 Plt Count 345 10^3/cmm (157-399) 11/08/23 10:53 MPV 9.6 fL (7.4-10.4) 11/08/23 10:53 Neut % (Auto) 81.3 % 11/08/23 10:53 Lymph % (Auto) 7.0 % 11/08/23 10:53 Creek % (Auto) 10.6 % 11/08/23 10:53 Eos % (Auto) 0.0 % 11/08/23 10:53 Baso % (Auto) 0.3 % 11/08/23 10:53 Neut # (Auto) 20.92 10^3/uL (1.8-7.7) H 11/08/23 10:53 Lymph # (Auto) 1.8 10^3/uL (0.8-4.8) 11/08/23 10:53 Creek # (Auto) 2.7 10^3/uL (0.2-0.9) H 11/08/23 10:53 Eos # (Auto) 0.0 10^3/uL (0.0-0.8) 11/08/23 10:53 Baso # (Auto) 0.1 10^3/uL (0.0-0.1) 11/08/23 10:53 Nucleated RBC % (auto) 0 % 11/08/23 10:53 Nucleated RBCs # 0.0 /100WBC 11/08/23 10:53 Specimen Type Arterial 11/08/23 10:52 Sample Site Radial, right 11/08/23 10:52 ABG pH 7.41 (7.35-7.45) 11/08/23 10:52 ABG pCO2 46.9 mmHg (35-45) H 11/08/23 10:52 ABG pO2 73.6 mmHg (80.0-100.0) L 11/08/23 10:52 ABG HCO3 29.4 mmol/L (22-26) H 11/08/23 10:52 ABG O2 Saturation 96.0 11/08/23 10:52 ABG Base Excess 3.9 mmol/L (-2.0-2.0) H 11/08/23 10:52 Dale Test Pos 11/08/23 10:52 A-a O2 Gradient 2.6 mmHg (5-10) L 11/08/23 10:52 Hematocrit 37.0 % (42-52) L 11/08/23 10:52 Hgb O2 Saturation 93.3 % (95-100) L 11/08/23 10:52 Carboxyhemoglobin 2.1 %THgb (0.4-20.1) 11/08/23 10:52 Methemoglobin 0.7 % (0.4-1.5) 11/08/23 10:52 Total Hemoglobin 12.1 g/dL (14-18) L 11/08/23 10:52 Sodium 138.0 mmol/L (131-143) 11/08/23 10:52 Potassium 4.1 mmol/L (3.5-5.0) 11/08/23 10:52 Glucose 158.0 mg/dL (70-115) H 11/08/23 10:52 Ionized Calcium 1.2 mmol/L (1.1-1.4) 11/08/23 10:52 O2 Delivery Device Nc 11/08/23 10:52 O2 Liters/Min 3.0 % 11/08/23 10:52 Smokehouse Operator ID [place] 11/08/23 10:52 Sodium 137 mmol/L (136-145) 11/08/23 10:53 Potassium 4.3 mmol/L (3.5-5.1) 11/08/23 10:53 Chloride 99 mmol/L (98-107) 11/08/23 10:53 Carbon Dioxide 28 mmol/L (22-29) 11/08/23 10:53 Anion Gap 14.3 (5-19) 11/08/23 10:53 BUN 14 mg/dL (8-23) 11/08/23 10:53 Creatinine 0.6 mg/dL (0.7-1.2) L 11/08/23 10:53 GFR Calculation Not Reportable 11/08/23 10:53 Glucose 166 mg/dL (65-115) H 11/08/23 10:53 Calculated Osmolality 288 mOsm/kg (285-295) 11/08/23 10:53 Calcium 9.0 mg/dL (8.5-10.5) 11/08/23 10:53 Total Bilirubin 1.2 mg/dL (0.15-1.2) 11/08/23 10:53 AST 12 U/L (0-40) 11/08/23 10:53 ALT 13 U/L (0-41) 11/08/23 10:53 Alkaline Phosphatase 56 U/L (40-130) 11/08/23 10:53 Total Protein 6.8 g/dL (6.6-8.7) 11/08/23 10:53 Albumin 3.9 g/dL (3.5-5.2) 11/08/23 10:53 Globulin 2.9 g/dL (1.3-4.6) 11/08/23 10:53 All radiology interpretation(s) finalized by discharge Discharge Plan Discharge Admit Provider: Salazar Bonilla Condition: Stable Coding Level of Care Code ED Director Of Patient Care for Amaya Norris
--- NOTE | 2023-11-08 15:57 | P.HP_ITS ---
Providers/Chief Complaint 2 Admitting Physician: Salazar Bonilla MD Primary Care Provider: ALESSANDRA Sfoia Chief Complaint: Copd Exacerbation History of Present Illness Flavio Villareal is a 73 year old male with a past medical history of COPD, active smoker, history of emphysema, who presents to [facility] due to shortness of breath, productive cough, fatigue, malaise. Patient tells me for the last few days he has been feeling increasingly short of breath, with a productive cough, no fevers, no chills, no hemoptysis, he does continue to smoke. He tells me that he is feeling short of breath with activities of daily living, he needs assistance with activities due to shortness of breath, no history of COVID, no recent travel, no calf pain no calf swelling, no hemoptysis Review of Systems 2 Const: Denies: fever(s) Card: Denies: chest pain Resp: Denies: dyspnea GI: Denies: abdominal pain Medications/Allergies Home Medications Medication Instructions Recorded Confirmed Last Taken Type albuterol sulfate 90 mcg/actuation 2 puff inhalation Q4H PRN 12/29/21 11/08/23 11/08/23 Rx aerosol inhaler (Ventolin HFA) shortness of breath or wheezing #8.5 grams budesonide-formoterol HFA 160 1 puff inhalation BID 04/22/23 11/08/23 11/08/23 History mcg-4.5 mcg/actuation aerosol inhaler (Symbicort) ipratropium 0.5 mg-albuterol 3 mg 3 ml inhalation QID Shortness Of 04/25/23 11/08/23 11/08/23 Rx (2.5 mg base)/3 mL nebulization Breath #180 mL soln finasteride 5 mg tablet 5 mg PO QPM 11/08/23 11/08/23 11/07/23 History montelukast 10 mg tablet 10 mg PO QPM 11/08/23 11/08/23 11/07/23 History prednisone 5 mg tablet 5 mg PO QPM 11/08/23 11/08/23 11/07/23 History Allergies Allergy/AdvReac Type Severity Reaction Status Date / Time Iodinated Contrast Media Allergy NA Verified 11/08/23 11:10 PFSH Acute 2 PFSH: Medical History (Updated 11/08/23 @ 16:02 by Salazar Bonilla MD) Acute exacerbation of chronic obstructive pulmonary disease (COPD) Acute respiratory distress Hypothyroidism Lung nodule Nicotine dependence, cigarettes, with other nicotine-induced disorders Enlarged prostate Abnormal weight loss Tachycardia Chronic obstructive pulmonary disease Nicotine addiction Chronic respiratory failure with hypoxia Elevated PSA Chronically elevated PSA, normal OBDULIA. Multiple other comorbidities including severe lung disease. Has adamantly refused biopsy BPH (benign prostatic hyperplasia) Surgical History S/P tonsillectomy History of lung biopsy Family History Mother , 75 Diabetes Father , 82 No problems noted. Social History Smoking and tobacco/nicotine status: current every day tobacco/nicotine user (1ppd) cigarettes Packs smoked per day: 0.5 Years cigarettes smoked: 50 [ Other cigarette details: Hx of 2 PPD x 50 Years, started at age 20] Alcohol intake: never Substance/Drug Use: never Marital status: / Current occupational status: retired Do you think of yourself as: Straight/Heterosexual Vitals/I&O/Wt Last Vital Signs Temp 98.1 F 11/08/23 10:33 Pulse 93 11/08/23 13:39 Resp 26 H 11/08/23 13:39 BP 93/63 11/08/23 13:39 Pulse Ox 97 11/08/23 13:39 O2 Del Method Nasal Cannula 11/08/23 13:39 O2 Flow Rate 2 11/08/23 13:39 Weight last 48 hrs Weight 43.091 kg Physical Exam 2 Const: COMMON NORMALS: no acute distress and patient oriented x3 HENMT: COMMON NORMALS: normocephalic Eye: COMMON NORMALS: Equal, round and reactive pupils present Neck/C-Spine: COMMON NORMALS: no JVD Resp: COMMON NORMALS: normal respiratory effort, No retractions, No use of accessory muscles and clear to auscultation bilaterally AUSCULTATION: clear to auscultation bilaterally Cardio: COMMON NORMALS: regular rate, regular rhythm, S1 normal heart sound present and S2 normal heart sound present RATE: regular rate RHYTHM: r egular rhythm HEART SOUNDS: S1 normal heart sound present and S2 normal heart sound present GI: COMMON NORMALS: Normal to inspection, nondistended, normoactive bowel sounds present, Soft to palpation and non-tender Extremity: COMMON NORMALS: no pedal edema Neuro: COMMON NORMALS: patient oriented x3, CN's II-XII intact bilaterally, moves all extremities and no focal motor deficits OTHER: Evidence of protein calorie malnutrition muscle wasting, bilateral upper extremities, lower extremities, calfs Psych: COMMON NORMALS: mental status grossly normal Data 11/08/23 10:53 11/08/23 10:53 A&P Assessment and plan (1) Acute exacerbation of chronic obstructive pulmonary disease (COPD): (2) Pneumonia: (3) Anorexia: (4) Protein calorie malnutrition: (5) Muscle wasting: Plan Acute COPD exacerbation ? With evidence of pneumonia given productive cough, leukocytosis, ? With anorexia, protein calorie malnutrition, muscle wasting ? Plan, ? Monitor on MedSurg, ? Patient could not tolerate a CT angiogram of the chest, because he cannot lie flat, will hold off for now order troponin series, D-dimer, venous ultrasound bilateral extremities, ? Order cardiac echo, ? Started on Rocephin, azithromycin, ? Solu-Medrol 40 IV every 8 hours, ? Duoneb ? Budesonide ? Monitor respiratory status closely ? Lovenox for DVT prophylaxis, ? Consult dietary, ? General diet, ? CODE STATUS, patient does not want to be resuscitated, but is okay with elective intubation if required, but does not want to remain on life support indefinitely Attestations 2 Medical Necessity Statement*: Patient requires hospitalization at for COPD exacerbation, hypoxia, pneumonia, inpatient, greater than 2 midnights Diagnoses Acute exacerbation of chronic obstructive pulmonary disease (COPD) J44.1 Pneumonia J18.9 Anorexia R63.0 Protein calorie malnutrition E46 Muscle wasting M62.50
--- NOTE | 2023-11-08 16:11 | ECG_ITS ---
[facility] Test Date: 2023-11-08 Pat Name: Flavio Villareal Department: Room: 273 Gender: Male Etl Database Developer: : 1950 Requested By: Salazar Bonilla Order Number: [id number] Jo Ann MD: Brandi Andersen M.D. Measurements Intervals [place] Rate: 94 P: 85 UT: 165 QRS: 85 QRSD: 65 T: 89 QT: 304 QTc: 381 Interpretive Statements SINUS RHYTHM LOW QRS VOLTAGE IN PRECORDIAL LEADS [QRS DEFLECTION < 1.0 mV IN CHEST LEADS] SEPTAL MYOCARDIAL INFARCTION , PROBABLY OLD [40+ ms Q WAVE IN V1/V2] Compared to ECG 11/08/2023 10:46:25 Myocardial infarct finding now present Sinus tachycardia no longer present Electronically Signed On 11-08-2023 22:21:19 SCIENCE PROFESSOR by Brandi Andersen M.D. [id number]
[2023-11-08 17:48] LABS: Troponin(5th) Baseline 50 ng/L (0-15)
[2023-11-08 17:58] LABS: Procalcitonin 0.23 ng/mL (0-0.5)
--- NOTE | 2023-11-08 18:48 | USCV_ITS ---
Flavio Villareal Age: 73 Gender: M : 1950 Exam Date: 11/08/2023 21:17 Ordering Phys: Salazar Bonilla MD Technologist: TONYA Exam Location: [facility] [place] Indication: SOB, COPD, O2-dependent 2L. No history of cardiac intervention per patient. BP: 106 / 59 HR: 92 Rhythm: Sinus Technical Quality: Adequate MEASUREMENTS (Male / Female) Normal Values 2D ECHO LV Diastolic Diameter PLAX 3.1 cm 4.2 - 5.9 / 3.9 - 5.3 cm LV Systolic Diameter PLAX 2.2 cm IVS Diastolic Thickness 0.8 cm 0.6 - 1.0 / 0.6 - 0.9 cm IVS Systolic Thickness 0.9 cm LVPW Diastolic Thickness 0.8 cm 0.6 - 1.0 / 0.6 - 0.9 cm LVPW Systolic Thickness 1.4 cm LVOT Diameter 2.1 cm LV Ejection Fraction 2D Teich 58.2 % LV Ejection Fraction MOD 2C 58.7 % LV Ejection Fraction 2C AL 58.4 % LA Diameter 2.4 cm LA Width 3.7 cm LA Height 2.1 cm RA Width 2.7 cm RA Height 2.6 cm Aorta at Sinotubular Diameter 3.6 cm IVC Diameter 1.4 cm M-MODE Aortic Annulus Diameter 2.9 cm LA Ao Ratio MM 0.7 DOPPLER AV Peak Velocity 95.0 cm/s LVOT Peak Velocity 77.0 cm/s AV Area Cont Eq vti 2.2 cm squared AV Area Cont Eq pk 2.9 cm squared MV Area PHT 2.9 cm squared Mitral E to A Ratio 1.1 MV E' Velocity 34.5 cm/s Mitral E to MV E' Ratio 11.0 Mitral E to LV E' Lateral Ratio 9.9 Mitral E to LV E' Septal Ratio 12.5 TR Peak Velocity 282.0 cm/s TR Peak Gradient 31.8 mmHg TV Peak E Velocity 52.0 cm/s Right Atrial Pressure 5.0 mmHg Pulmonary Artery Systolic Pressu 36.8 mmHg PV Peak Velocity 125.0 cm/s RV Acceleration Time 0.1 s RV Ejection Time 0.3 s RV AcT/ET 0.5 FINDINGS Left Ventricle Normal left ventricular size and systolic function, EF 60 %. No regional wall motion abnormalities. Technically difficult study because of poor no apical windows. Only parasternal and epigastric views were obtained Right Ventricle Possibly of normal size ejection fraction Right Atrium Possibly of normal size Left Atrium Possibly of normal size Mitral Valve No gross abnormalities noted Aortic Valve The leaflets are not visualized . No significant stenosis Tricuspid Valve No gross abnormalities noted Pulmonic Valve . Pulmonic valve not well visualized. Pericardium No pericardial effusion. Aorta Normal aortic annulus size. IVC Normal inferior vena cava. CONCLUSIONS Normal left ventricular size and systolic function, EF 60 %. Possibly normal chamber sizes. No gross valvular abnormalities were noted. No pericardial effusion. Technically limited study because of the lack of any apical windows. Dr Diann Yusuf MD FAC (Electronically Signed) Final Date: 09 November 2023 07:42 S
--- NOTE | 2023-11-08 18:48 | USCV_ITS ---
Flavio Villareal Age: 73 Gender: M : 1950 Exam Date: 11/08/2023 20:53 Ordering Phys: Salazar Bonilla MD Technologist: TONYA Exam Location: [facility] [place] Indication: sob, COPD, O2 dependent 2L. No history of DVT per patient. No LE edema or erythema or pain. HISTORY: sob, COPD, O2 dependent 2L. No history of DVT per patient. No LE edema or erythema or pain. PROCEDURES: Venous duplex imaging was performed in bilateral lower extremities. The following venous structures were evaluated: common femoral vein, profunda vein, proximal portion of the greater saphenous vein, superficial femoral vein, and the popliteal vein. In addition, the posterior tibial veins were evaluated. Serial compression, augmentation maneuvers, and spectral Doppler flow evaluation were performed, which were normal. Bilaterally, the common femoral, superficial femoral, profunda femoral, popliteal, posterior tibial, and greater saphenous veins were identified and interrogated in the standard fashion. These veins were found to be easily compressible with spontaneous blood flow. No evidence of thrombus noted. CONCLUSIONS No evidence of right lower extremity DVT. No evidence of left lower extremity DVT. Milton Ramirez MD (Electronically Signed) Final Date: 09 November 2023 09:00 S
[2023-11-08 19:36] LABS: Lactate (Lactic Acid level) 1.8 mmol/L (0.5-2.2)
[2023-11-08 19:37] LABS: D Dimer 0.43 ug/mLFEU (0-0.59)
[2023-11-08 19:48] LABS: C Reactive Protein 116.8 mg/L (0.0-4.9); Chol HDL Ratio 1.66 mg/dL (1.0-5.00); Cholesterol 113 mg/dL (0-200); HDL Cholesterol 68 mg/dL (60-100); LDL Cholesterol Calculated 36 mg/dL (50-129); LDL HDL Ratio 0.53 RATIO (0.00-3.22); NT Pro B Type Natriuretic Pept 385 pg/mL (0-125); Thyroid Stimulating Hormone 0.71 uIU/mL (0.27-4.20); Triglycerides 44 mg/dL (0-150)
[2023-11-08] MEDS: sodium chloride 0.9% 1,000 ML 100 ML IV (19:55)
[2023-11-08] MEDS: cefTRIAXone 1,000 MG in sodium chloride 0.9% (plus) 50 ML 100 MG IV (19:56)
[2023-11-08] MEDS: enoxaparin 40 mg/0.4 mL Syringe SUBCUT (20:00)
[2023-11-08] MEDS: methylPREDNISolone sod succ 40 mg/mL INJ IVP (20:01)
[2023-11-08] MEDS: pantoprazole 40 mg SDV IVP (20:01)
[2023-11-08] MEDS: finasteride 5 mg Tablet PO (20:02)
[2023-11-08 20:12] LABS: Estmated Average Glucose 97
[2023-11-08] MEDS: budesonide 0.5 mg/2 mL Neb INHALATION (20:15)
[2023-11-08] MEDS: azithromycin 500 MG in sodium chloride 0.9% 250 ML 250 MG IV (22:28)
[2023-11-09] VITALS (16 sets, daily range): BP systolic 92–115; BP diastolic 55–71; PULSE 76–96; RESP 16–22; TEMP 36.4–36.6; O2SAT 95–98
[2023-11-09 00:05] LABS: Add Urine Microscopic? YES; Bilirubin Urine Neg (Negative); Blood Urine 2+ (Negative); Glucose Urine UA Norm (Normal); Ketones Urine 1+ (Negative); Leukocyte Esterase Urine Negative (Negative); Nitrate Urine Negative (Negative); Protein Urine Trace (Negative); Urine Appearance Slightly Cloudy (CLEAR); Urine Color Dark Yellow (Yellow); Urobilinogen Urine Neg (Negative); pH Urine 5 (5-7)
[2023-11-09 00:06] LABS: Add Urine Culture? No; Amorphous Sediment Urine 2+ /hpf; Bacteria Urine 1+ /hpf; Squamous Epithelial Cell Urine 0-4 /hpf (0-5)
[2023-11-09] MEDS: ipratropium-albuterol 3 mL Neb INHALATION ×6 (00:22→20:59)
[2023-11-09 01:24] LABS: Adenovirus Not Detected (NOT DETECT); Chlamydia Pneumoniae Not Detected (NOT DETECT); Coronavirus 229E,HKU1,NL63,OC4 Not Detected (NOT DETECT); Human Metapneumovirus Not Detected (NOT DETECT); Human Rhinovirus/Enterovirus Not Detected (NOT DETECT); Influenza A Not Detected (NOT DETECT); Influenza A H1 Not Detected (NOT DETECT); Influenza A H1-2009 Not Detected (NOT DETECT); Influenza A H3 Not Detected (NOT DETECT); Influenza B Not Detected (NOT DETECT); Mycoplasma Pneumoniae Not Detected (NOT DETECT); Parainfluenza Virus Type 1 Not Detected (NOT DETECT); Parainfluenza Virus Type 2 Not Detected (NOT DETECT); Parainfluenza Virus Type 3 Not Detected (NOT DETECT); Parainfluenza Virus Type 4 Not Detected (NOT DETECT); Respiratory Syncytial Virus A Not Detected (NOT DETECT); Respiratory Syncytial Virus B Not Detected (NOT DETECT); SARS-COV-2 Not Detected (NOT DETECT)
[2023-11-09 01:32] LABS: Troponin 5 2HR 45.32 ng/L (0-15)
[2023-11-09 01:33] LABS: Troponin 5 2HR Delta -4.68 ABS# (0-10)
[2023-11-09 02:59] LABS: Troponin 5 6HR 42.74 ng/L (0-15)
[2023-11-09 03:01] LABS: Troponin 5 6HR Delta -7.26 ng/L (0-12)
[2023-11-09] MEDS: methylPREDNISolone sod succ 40 mg/mL INJ IVP ×3 (04:10→19:47)
[2023-11-09] MEDS: sodium chloride 0.9% 1,000 ML 100 ML IV (05:49)
[2023-11-09 06:11] LABS: Basophils % 0.1 %; Hematocrit 27.9 % (37-53); Lymphocytes # 0.5 10^3/uL (0.8-4.8); Lymphocytes % 5.2 %; Mean Corpuscular HGB Conc 34.8 g/dL (30-55); Mean Corpuscular Hemoglobin 34.6 pg (27-33); Mean Corpuscular Volume 99.6 fl (82-101); Mean Platelet Volume 9.6 fL (7.4-10.4); Monocytes # 0.4 10^3/uL (0.2-0.9); Monocytes % 4.7 %; Neutrophils % 89.3 %; Nucleated Red Blood Cells % 0 %; Platelet Count 230 10^3/cmm (157-399); Red Cell Distribution Width 13.3 % (12.1-15.1); White Blood Count 8.73 10^3/uL (3.29-11.43)
[2023-11-09 06:35] LABS: Alanine Aminotransferase 13 U/L (0-41); Albumin Level 3.3 g/dL (3.5-5.2); Alkaline Phosphatase 48 U/L (40-130); Aspartate Amino Transferase 11 U/L (0-40); Blood Urea Nitrogen 15 mg/dL (8-23); Calcium 8.6 mg/dL (8.5-10.5); Carbon Dioxide 28 mmol/L (22-29); Chloride 103 mmol/L (98-107); Globulin 2.4 g/dL (1.3-4.6); Glucose 170 mg/dL (65-115); Magnesium 2.1 mg/dL (1.7-2.3); Osmolality Calculated 293 mOsm/kg (285-295); Phosphorus 2.7 mg/dL (2.5-4.5); Sodium 139 mmol/L (136-145); Total Bilirubin 0.4 mg/dL (0.15-1.2); Total Protein 5.7 g/dL (6.6-8.7)
[2023-11-09] MEDS: budesonide 0.5 mg/2 mL Neb INHALATION ×2 (09:07→20:58)
--- NOTE | 2023-11-09 10:38 | PC.CHAP ---
Pastoral Care Encounter/Spiritual Assessment Type of Contact [] Declined communications department chairperson visit [] Patient/Family/Request visit [] Outpatient visit [] Follow-up visit [] Physician referral [] Code/Alert [x] Routine visit [] Staff referral [] Actively dying [] Patient sleeping [] Family support [] [] Out of room [] Palliative care [] [x] Receiving care in room [] Pre-surgical visit [] Trauma [] Long length of stay [] ICU visit [] Other: Relational/Emotional Strength [] Patient feels connected with others/family/visitors/staff [x] Distress [] Loneliness/isolation [] Abandonment Spirituality of Patient [] Person of Essie [] Attends Religious of their Essie [] Believes in Prayer [] Reads Bible or Jain materials [] There are Spiritual issues to be addressed Mechanical Assembly Interventions [] Prayer [] Active listening [] Non-anxious presence [] Spiritual/emotional support [] Crisis/trauma care [] Spiritual counseling [] Bereavement support [] Provided bereavement packet [] Provided Bible/devotional materials [] Provided toy/stuffed animal, coloring book to patient or family member [] Provided Communion [] Anointing/[place] [] Salvation [] Completed spiritual assessment [] Other: Impact on Illness or Injury [] Angry [] Fearful [] Anxious [] Often cries [] Exhaustion [] Unable to work [] Unable to attend faith [] Unable to walk/stand [] Unable to read [] Unable to drive [] Unable to eat/drink [] Unable to sleep [] Unable to be with family [] Patient intubated [] Other: Summary COPD has a good attitude not sure when he well go home or what needs to be done Time spent with patient 10 mins
--- NOTE | 2023-11-09 15:21 | P.PN_ITS ---
Subjective 2 Subjective: Patient was seen this morning, he continues to complain of shortness of breath, with generalized weakness, Vitals/I&O/Wt Last Vital Signs Temp 97.7 F 11/09/23 11:50 Pulse 86 11/09/23 12:06 Resp 18 11/09/23 11:59 BP 111/69 11/09/23 11:50 Pulse Ox 95 11/09/23 11:59 O2 Del Method Nasal Cannula 11/09/23 11:59 O2 Flow Rate 2 11/09/23 11:59 11/09/23 11/09/23 11/09/23 06:59 14:59 22:59 Intake Total 1480 / 1530 480 / 480 Output Total 125 / 325 Balance 1355 / 1205 480 / 480 Weight last 48 hrs Weight 46.72 kg Weight 44.361 kg Weight 43.091 kg Physical Exam 2 Const: COMMON NORMALS: no acute distress and patient oriented x3 Resp: COMMON NORMALS: normal respiratory effort, No retractions, No use of accessory muscles and clear to auscultation bilaterally AUSCULTATION: clear to auscultation bilaterally Cardio: COMMON NORMALS: regular rate, regular rhythm, S1 normal heart sound present and S2 normal heart sound present RATE: regular rate RHYTHM: r egular rhythm HEART SOUNDS: S1 normal heart sound present and S2 normal heart sound present GI: COMMON NORMALS: Normal to inspection, nondistended, normoactive bowel sounds present and non-tender Extremity: COMMON NORMALS: no pedal edema Neuro: COMMON NORMALS: patient oriented x3 Psych: COMMON NORMALS: mental status grossly normal Data 11/09/23 06:05 11/09/23 06:05 A&P Assessment and plan (1) Acute exacerbation of chronic obstructive pulmonary disease (COPD): (2) Pneumonia: (3) Anorexia: (4) Protein calorie malnutrition: (5) Muscle wasting: Plan Acute COPD exacerbation ? With evidence of pneumonia given productive cough, leukocytosis, ? With anorexia, protein calorie malnutrition, muscle wasting ? Plan, ? Monitor on MedSurg, ? Patient could not tolerate a CT angiogram of the chest, because he cannot lie flat, will hold off for now order troponin 50, D-dimer 0.43, venous ultrasound bilateral extremities negative for DVT ? Order cardiac echo, within normal limits ? Continue on Rocephin, azithromycin, ? Solu-Medrol 40 IV every 8 hours, ? Duoneb ? Budesonide ? Monitor respiratory status closely ? Lovenox for DVT prophylaxis, ? Consult dietary, ? General diet, ? CODE STATUS, patient does not want to be resuscitated, but is okay with elective intubation if required, but does not want to remain on life support indefinitely Attestations 2 Medical Necessity Statement*: Patient requires hospitalization for acute COPD exacerbation, pneumonia Diagnoses Acute exacerbation of chronic obstructive pulmonary disease (COPD) J44.1 Pneumonia J18.9 Anorexia R63.0 Protein calorie malnutrition E46 Muscle wasting M62.50
[2023-11-09] MEDS: cefTRIAXone 1,000 MG in sodium chloride 0.9% (plus) 50 ML 100 MG IV (17:47)
[2023-11-09] MEDS: pantoprazole 40 mg SDV IVP (17:47)
[2023-11-09] MEDS: enoxaparin 40 mg/0.4 mL Syringe SUBCUT (17:47)
[2023-11-09] MEDS: finasteride 5 mg Tablet PO (17:47)
[2023-11-09] MEDS: azithromycin 500 MG in sodium chloride 0.9% 250 ML 250 MG IV (18:25)
[2023-11-10] VITALS (18 sets, daily range): BP systolic 92–153; BP diastolic 47–78; PULSE 71–86; RESP 14–119; TEMP 36.4–36.9; O2SAT 96–99
[2023-11-10] MEDS: ipratropium-albuterol 3 mL Neb INHALATION ×7 (00:41→23:43)
[2023-11-10] MEDS: methylPREDNISolone sod succ 40 mg/mL INJ IVP ×3 (04:17→22:04)
[2023-11-10 06:11] LABS: Hematocrit 25.8 % (37-53); Lymphocytes # 0.4 10^3/uL (0.8-4.8); Lymphocytes % 4.6 %; Mean Corpuscular HGB Conc 33.3 g/dL (30-55); Mean Corpuscular Hemoglobin 34.1 pg (27-33); Mean Corpuscular Volume 102.4 fl (82-101); Monocytes # 0.4 10^3/uL (0.2-0.9); Monocytes % 4.5 %; Neutrophils # 8.02 10^3/uL (1.8-7.7); Neutrophils % 90.4 %; Nucleated Red Blood Cells % 0 %; Platelet Count 232 10^3/cmm (157-399); Red Blood Count 2.52 10^6/uL (3.85-5.65); Red Cell Distribution Width 13.4 % (12.1-15.1); White Blood Count 8.87 10^3/uL (3.29-11.43)
[2023-11-10 06:36] LABS: Alanine Aminotransferase 29 U/L (0-41); Albumin Level 3.1 g/dL (3.5-5.2); Alkaline Phosphatase 44 U/L (40-130); Anion Gap 13.9 (5-19); Aspartate Amino Transferase 18 U/L (0-40); Blood Urea Nitrogen 14 mg/dL (8-23); Calcium 8.4 mg/dL (8.5-10.5); Carbon Dioxide 26 mmol/L (22-29); Chloride 106 mmol/L (98-107); Glucose 166 mg/dL (65-115); Osmolality Calculated 298 mOsm/kg (285-295); Phosphorus 2.6 mg/dL (2.5-4.5); Potassium 3.9 mmol/L (3.5-5.1); Sodium 142 mmol/L (136-145); Total Bilirubin 0.2 mg/dL (0.15-1.2); Total Protein 5.1 g/dL (6.6-8.7)
[2023-11-10] MEDS: budesonide 0.5 mg/2 mL Neb INHALATION ×2 (08:01→19:30)
--- NOTE | 2023-11-10 12:00 | PC.SOCIAL ---
Pg 2 IMM Explained to pt Pg 2 IMM. no questions voiced. Provided pt a copy. Initialed, dated, & timed a copy & placed in chart.
[2023-11-10] MEDS: finasteride 5 mg Tablet PO (17:11)
[2023-11-10] MEDS: azithromycin 500 MG in sodium chloride 0.9% 250 ML 250 MG IV (17:11)
--- NOTE | 2023-11-10 18:00 | P.PN_ITS ---
Subjective 2 Subjective: Patient was seen this morning, continues to complain of weakness, fatigue, malaise Vitals/I&O/Wt Last Vital Signs Temp 97.5 F L 11/10/23 16:00 Pulse 71 11/10/23 16:00 Resp 18 11/10/23 16:00 BP 93/54 11/10/23 16:00 Pulse Ox 99 11/10/23 16:00 O2 Del Method Nasal Cannula 11/10/23 16:00 O2 Flow Rate 2 11/10/23 16:00 11/10/23 11/10/23 11/10/23 06:59 14:59 22:59 Intake Total 240 / 2170 600 / 600 Output Total 300 / 300 Balance 240 / 1870 300 / 300 Weight last 48 hrs Weight 47.712 kg Weight 46.72 kg Weight 44.361 kg Physical Exam 2 Const: COMMON NORMALS: no acute distress and patient oriented x3 Resp: COMMON NORMALS: normal respiratory effort, No retractions, No use of accessory muscles and clear to auscultation bilaterally AUSCULTATION: clear to auscultation bilaterally Cardio: COMMON NORMALS: regular rate, regular rhythm, S1 normal heart sound present and S2 normal heart sound present RATE: regular rate RHYTHM: r egular rhythm HEART SOUNDS: S1 normal heart sound present and S2 normal heart sound present GI: COMMON NORMALS: Normal to inspection, nondistended, normoactive bowel sounds present and non-tender Extremity: COMMON NORMALS: no pedal edema Neuro: COMMON NORMALS: patient oriented x3 Psych: COMMON NORMALS: mental status grossly normal Data 11/10/23 05:54 11/10/23 05:54 A&P Assessment and plan (1) Acute exacerbation of chronic obstructive pulmonary disease (COPD): (2) Pneumonia: (3) Anorexia: (4) Protein calorie malnutrition: (5) Muscle wasting: Plan Acute COPD exacerbation ? With evidence of pneumonia given productive cough, leukocytosis, ? With anorexia, protein calorie malnutrition, muscle wasting ? Plan, ? Monitor on MedSurg, ? Patient could not tolerate a CT angiogram of the chest, because he cannot lie flat, will hold off for now order troponin 50, D-dimer 0.43, venous ultrasound bilateral extremities negative for DVT ? Order cardiac echo, within normal limits ? Continue on Rocephin, azithromycin, ? Solu-Medrol 40 IV every 8 hours, ? Duoneb ? Budesonide ? Monitor respiratory status closely ? Lovenox for DVT prophylaxis, ? Consult dietary, ? General diet, ? CODE STATUS, patient does not want to be resuscitated, but is okay with elective intubation if required, but does not want to remain on life support indefinitely Attestations 2 Medical Necessity Statement*: Patient requires hospitalization for acute COPD exacerbation Diagnoses Acute exacerbation of chronic obstructive pulmonary disease (COPD) J44.1 Pneumonia J18.9 Anorexia R63.0 Protein calorie malnutrition E46 Muscle wasting M62.50
[2023-11-10] MEDS: pantoprazole 40 mg SDV IVP (18:17)
[2023-11-10] MEDS: enoxaparin 40 mg/0.4 mL Syringe SUBCUT (18:17)
[2023-11-10] MEDS: cefTRIAXone 1,000 MG in sodium chloride 0.9% (plus) 50 ML 100 MG IV (18:18)
[2023-11-11] VITALS (16 sets, daily range): BP systolic 100–128; BP diastolic 55–71; PULSE 71–128; RESP 15–20; TEMP 36.4–37; O2SAT 95–98
[2023-11-11] MEDS: methylPREDNISolone sod succ 40 mg/mL INJ IVP ×3 (03:47→20:31)
[2023-11-11] MEDS: cyclobenzaprine 10 mg Tablet 5 MG PO (03:48)
[2023-11-11 05:47] LABS: Basophils % 0.1 %; Hematocrit 24.7 % (37-53); Lymphocytes # 0.4 10^3/uL (0.8-4.8); Mean Corpuscular HGB Conc 32.8 g/dL (30-55); Mean Corpuscular Hemoglobin 33.8 pg (27-33); Mean Corpuscular Volume 102.9 fl (82-101); Mean Platelet Volume 10.1 fL (7.4-10.4); Monocytes # 0.3 10^3/uL (0.2-0.9); Monocytes % 4.8 %; Neutrophils # 6.21 10^3/uL (1.8-7.7); Neutrophils % 88.5 %; Nucleated Red Blood Cells % 0 %; Platelet Count 251 10^3/cmm (157-399); Red Cell Distribution Width 13.3 % (12.1-15.1); White Blood Count 7.02 10^3/uL (3.29-11.43)
[2023-11-11 06:11] LABS: Alanine Aminotransferase 44 U/L (0-41); Albumin Level 2.9 g/dL (3.5-5.2); Alkaline Phosphatase 38 U/L (40-130); Anion Gap 10.1 (5-19); Aspartate Amino Transferase 27 U/L (0-40); Blood Urea Nitrogen 12 mg/dL (8-23); Calcium 8.2 mg/dL (8.5-10.5); Carbon Dioxide 29 mmol/L (22-29); Chloride 104 mmol/L (98-107); Globulin 2.1 g/dL (1.3-4.6); Glucose 144 mg/dL (65-115); Osmolality Calculated 290 mOsm/kg (285-295); Phosphorus 2.6 mg/dL (2.5-4.5); Potassium 4.1 mmol/L (3.5-5.1); Sodium 139 mmol/L (136-145); Total Bilirubin 0.2 mg/dL (0.15-1.2)
[2023-11-11] MEDS: ipratropium-albuterol 3 mL Neb INHALATION ×4 (07:47→19:49)
[2023-11-11] MEDS: budesonide 0.5 mg/2 mL Neb INHALATION ×2 (07:47→19:49)
[2023-11-11 09:38] LABS: Iron 106 ug/dL (59-158)
[2023-11-11 09:51] LABS: Ferritin 1451 ng/mL (30-400)
[2023-11-11 12:02] LABS: Hematocrit 26.3 % (37-53); Lymphocytes # 0.5 10^3/uL (0.8-4.8); Lymphocytes % 6.7 %; Mean Corpuscular HGB Conc 33.8 g/dL (30-55); Mean Corpuscular Hemoglobin 34.2 pg (27-33); Mean Corpuscular Volume 101.2 fl (82-101); Mean Platelet Volume 9.9 fL (7.4-10.4); Monocytes # 0.6 10^3/uL (0.2-0.9); Monocytes % 8.2 %; Neutrophils # 6.51 10^3/uL (1.8-7.7); Neutrophils % 83.4 %; Nucleated Red Blood Cells % 0 %; Platelet Count 272 10^3/cmm (157-399); Red Cell Distribution Width 13.3 % (12.1-15.1)
--- NOTE | 2023-11-11 12:24 | P.PN_ITS ---
Subjective 2 Subjective: Patient was seen this morning, continues to complain of fatigue, malaise, shortness of breath, he tells me he still cannot lie flat, no chest pain complaints Vitals/I&O/Wt Last Vital Signs Temp 97.6 F 11/11/23 11:36 Pulse 90 11/11/23 11:36 Resp 18 11/11/23 11:36 BP 108/64 11/11/23 11:36 Pulse Ox 96 11/11/23 11:36 O2 Del Method Nasal Cannula 11/11/23 11:36 O2 Flow Rate 2 11/11/23 11:01 11/10/23 11/11/23 11/11/23 22:59 06:59 14:59 Intake Total 420 / 1020 120 / 1140 240 / 240 Output Total 300 / 600 120 / 120 Balance 120 / 420 120 / 540 120 / 120 Weight last 48 hrs Weight 48.988 kg Weight 47.712 kg Physical Exam 2 Const: COMMON NORMALS: no acute distress and patient oriented x3 Resp: COMMON NORMALS: normal respiratory effort, No retractions and No use of accessory muscles AUSCULTATION: wheezes Cardio: COMMON NORMALS: regular rate, regular rhythm, S1 normal heart sound present and S2 normal heart sound present RATE: regular rate RHYTHM: r egular rhythm HEART SOUNDS: S1 normal heart sound present and S2 normal heart sound present GI: COMMON NORMALS: Normal to inspection, nondistended, normoactive bowel sounds present and non-tender Extremity: COMMON NORMALS: no pedal edema Neuro: COMMON NORMALS: patient oriented x3 Psych: COMMON NORMALS: mental status grossly normal Data 11/11/23 11:46 11/11/23 04:50 A&P Assessment and plan (1) Acute exacerbation of chronic obstructive pulmonary disease (COPD): (2) Pneumonia: (3) Anorexia: (4) Protein calorie malnutrition: (5) Muscle wasting: Plan Acute COPD exacerbation ? With evidence of pneumonia given productive cough, leukocytosis, ? With anorexia, protein calorie malnutrition, muscle wasting ? Plan, ? Monitor on MedSurg, ? Patient could not tolerate a CT angiogram of the chest, because he cannot lie flat, will hold off for now order troponin 50, D-dimer 0.43, venous ultrasound bilateral extremities negative for DVT ? cardiac echo, within normal limits ? Continue on Rocephin, azithromycin, ? Solu-Medrol 40 IV every 8 hours, ? Duoneb ? Budesonide ? Monitor respiratory status closely ? Lovenox for DVT prophylaxis, ? Consult dietary, protein calorie malnutrition, physical deconditioning, anorexia ? General diet, ? CODE STATUS, patient does not want to be resuscitated, but is okay with elective intubation if required, but does not want to remain on life support indefinitely Attestations 2 Medical Necessity Statement*: Patient requires hospitalization for COPD exacerbation, deconditioning, protein calorie malnutrition, Diagnoses Acute exacerbation of chronic obstructive pulmonary disease (COPD) J44.1 Pneumonia J18.9 Anorexia R63.0 Protein calorie malnutrition E46 Muscle wasting M62.50
[2023-11-11] MEDS: finasteride 5 mg Tablet PO (17:37)
[2023-11-11] MEDS: azithromycin 250 mg Tablet PO (17:40)
[2023-11-11] MEDS: cefTRIAXone 1,000 MG in sodium chloride 0.9% (plus) 50 ML 100 MG IV (18:15)
[2023-11-11] MEDS: pantoprazole 40 mg SDV IVP (18:16)
[2023-11-12] VITALS (17 sets, daily range): BP systolic 98–120; BP diastolic 62–72; PULSE 68–106; RESP 14–20; TEMP 36.5–36.8; O2SAT 95–98; BMI 14.9
[2023-11-12] MEDS: ipratropium-albuterol 3 mL Neb INHALATION ×5 (01:34→21:23)
[2023-11-12] MEDS: methylPREDNISolone sod succ 40 mg/mL INJ IVP ×2 (03:12→12:28)
[2023-11-12] MEDS: budesonide 0.5 mg/2 mL Neb INHALATION ×2 (07:32→21:23)
[2023-11-12 09:38] LABS: Anion Gap 12.1 (5-19); Blood Urea Nitrogen 14 mg/dL (8-23); Calcium 8.8 mg/dL (8.5-10.5); Carbon Dioxide 32 mmol/L (22-29); Chloride 101 mmol/L (98-107); Glucose 140 mg/dL (65-115); Osmolality Calculated 295 mOsm/kg (285-295); Potassium 4.1 mmol/L (3.5-5.1); Sodium 141 mmol/L (136-145)
--- NOTE | 2023-11-12 12:57 | P.PN_ITS ---
Subjective 2 Subjective: Patient tells me he feels a bit better this morning but did have episode of shortness of breath overnight, he is about concerned about going home today, given episodes of shortness of breath Vitals/I&O/Wt Last Vital Signs Temp 97.7 F 11/12/23 08:00 Pulse 90 11/12/23 11:32 Resp 17 11/12/23 11:32 BP 120/72 11/12/23 08:00 Pulse Ox 98 11/12/23 11:32 O2 Del Method Nasal Cannula 11/12/23 11:32 O2 Flow Rate 2 11/12/23 11:32 11/11/23 11/12/23 11/12/23 22:59 06:59 14:59 Intake Total 530 / 770 600 / 600 Output Total 500 / 620 150 / 770 Balance 30 / 150 -150 / 0 600 / 600 Weight last 48 hrs Weight 48.534 kg Weight 48.988 kg Physical Exam 2 Const: COMMON NORMALS: no acute distress and patient oriented x3 Resp: COMMON NORMALS: normal respiratory effort, No retractions, No use of accessory muscles and clear to auscultation bilaterally AUSCULTATION: clear to auscultation bilaterally Cardio: COMMON NORMALS: regular rate, regular rhythm, S1 normal heart sound present and S2 normal heart sound present RATE: regular rate RHYTHM: r egular rhythm HEART SOUNDS: S1 normal heart sound present and S2 normal heart sound present GI: COMMON NORMALS: Normal to inspection, nondistended, normoactive bowel sounds present and non-tender Extremity: COMMON NORMALS: no pedal edema Neuro: COMMON NORMALS: patient oriented x3 Psych: COMMON NORMALS: mental status grossly normal Data 11/11/23 11:46 11/12/23 09:01 A&P Assessment and plan (1) Acute exacerbation of chronic obstructive pulmonary disease (COPD): (2) Pneumonia: (3) Anorexia: (4) Protein calorie malnutrition: (5) Muscle wasting: Plan Acute COPD exacerbation ? With evidence of pneumonia given productive cough, leukocytosis, ? With anorexia, protein calorie malnutrition, muscle wasting ? Plan, ? Monitor on MedSurg, ? Patient could not tolerate a CT angiogram of the chest, because he cannot lie flat, will hold off for now order troponin 50, D-dimer 0.43, venous ultrasound bilateral extremities negative for DVT ? cardiac echo, within normal limits ? Continue on Rocephin, azithromycin, ? Solu-Medrol 40 IV every 8 hours, ? Duoneb ? Budesonide ? Monitor respiratory status closely ? Lovenox for DVT prophylaxis, ? Consult dietary, protein calorie malnutrition, physical deconditioning, anorexia ? General diet, ? CODE STATUS, patient does not want to be resuscitated, but is okay with elective intubation if required, but does not want to remain on life support indefinitely Attestations 2 Medical Necessity Statement*: Patient requires hospitalization for COPD exacerbation Diagnoses Acute exacerbation of chronic obstructive pulmonary disease (COPD) J44.1 Pneumonia J18.9 Anorexia R63.0 Protein calorie malnutrition E46 Muscle wasting M62.50
--- NOTE | 2023-11-12 14:15 | PC.NURSE ---
pt reports feeling sweaty and feverish . Temp 98.1 orally. Cold rag and ice pack given to pt and nurse notified.
[2023-11-12] MEDS: finasteride 5 mg Tablet PO (17:34)
[2023-11-12] MEDS: azithromycin 250 mg Tablet PO (17:34)
[2023-11-12] MEDS: cefTRIAXone 1,000 MG in sodium chloride 0.9% (plus) 50 ML 100 MG IV (18:00)
[2023-11-12] MEDS: pantoprazole 40 mg SDV IVP (18:01)
[2023-11-12] MEDS: zolpidem 5 mg Tablet PO (23:13)
[2023-11-13] VITALS (16 sets, daily range): BP systolic 100–109; BP diastolic 62–67; PULSE 70–103; RESP 15–20; TEMP 36.4–36.6; O2SAT 95–98; BMI 14.9
[2023-11-13 03:58] LABS: Basophils % 0.2 %; Hematocrit 29.3 % (37-53); Lymphocytes # 1.3 10^3/uL (0.8-4.8); Lymphocytes % 12.6 %; Mean Corpuscular HGB Conc 33.4 g/dL (30-55); Mean Corpuscular Hemoglobin 34.3 pg (27-33); Mean Corpuscular Volume 102.4 fl (82-101); Mean Platelet Volume 9.5 fL (7.4-10.4); Monocytes # 0.9 10^3/uL (0.2-0.9); Monocytes % 9.2 %; Neutrophils # 7.59 10^3/uL (1.8-7.7); Neutrophils % 73.8 %; Nucleated Red Blood Cells % 0.2 %; Platelet Count 316 10^3/cmm (157-399); Red Blood Count 2.86 10^6/uL (3.85-5.65); Red Cell Distribution Width 13.2 % (12.1-15.1); White Blood Count 10.27 10^3/uL (3.29-11.43)
[2023-11-13 04:22] LABS: Alanine Aminotransferase 33 U/L (0-41); Alkaline Phosphatase 41 U/L (40-130); Anion Gap 7.1 (5-19); Aspartate Amino Transferase 11 U/L (0-40); Blood Urea Nitrogen 22 mg/dL (8-23); Calcium 8.3 mg/dL (8.5-10.5); Carbon Dioxide 34 mmol/L (22-29); Chloride 103 mmol/L (98-107); Globulin 2.1 g/dL (1.3-4.6); Glucose 98 mg/dL (65-115); Osmolality Calculated 293 mOsm/kg (285-295); Phosphorus 2.7 mg/dL (2.5-4.5); Potassium 4.1 mmol/L (3.5-5.1); Sodium 140 mmol/L (136-145); Total Bilirubin 0.2 mg/dL (0.15-1.2); Total Protein 5.1 g/dL (6.6-8.7)
[2023-11-13] MEDS: ipratropium-albuterol 3 mL Neb INHALATION ×4 (07:37→20:31)
[2023-11-13] MEDS: budesonide 0.5 mg/2 mL Neb INHALATION ×2 (07:37→20:31)
[2023-11-13] MEDS: predniSONE 20 mg Tablet 40 MG PO (08:58)
--- NOTE | 2023-11-13 10:57 | P.PN_ITS ---
Subjective 2 Subjective: Patient was seen this morning, he does report generalized weakness, fatigue, he is anxious about going home due to persistent episodes of shortness of breath Vitals/I&O/Wt Last Vital Signs Temp 97.6 F 11/13/23 07:15 Pulse 81 11/13/23 07:44 Resp 18 11/13/23 07:38 BP 109/62 11/13/23 07:15 Pulse Ox 98 11/13/23 07:38 O2 Del Method Nasal Cannula 11/13/23 07:38 O2 Flow Rate 2 11/13/23 07:38 11/12/23 11/13/23 11/13/23 22:59 06:59 14:59 Intake Total 290 / 1130 30 / 1160 480 / 480 Output Total 1800 / 1800 265 / 2065 250 / 250 Balance -1510 / -670 -235 / -905 230 / 230 Weight last 48 hrs Weight 48.534 kg Weight 48.534 kg Physical Exam 2 Const: COMMON NORMALS: no acute distress and patient oriented x3 Resp: COMMON NORMALS: normal respiratory effort, No retractions, No use of accessory muscles and clear to auscultation bilaterally AUSCULTATION: clear to auscultation bilaterally Cardio: COMMON NORMALS: regular rate, regular rhythm, S1 normal heart sound present and S2 normal heart sound present RATE: regular rate RHYTHM: r egular rhythm HEART SOUNDS: S1 normal heart sound present and S2 normal heart sound present GI: COMMON NORMALS: Normal to inspection, nondistended, normoactive bowel sounds present and non-tender Extremity: COMMON NORMALS: no pedal edema Neuro: COMMON NORMALS: patient oriented x3 Psych: COMMON NORMALS: mental status grossly normal Data 11/13/23 03:19 11/13/23 03:19 Micro: Microbiology 11/08/23 20:42 Blood Culture - Preliminary Blood 11/08/23 20:36 Blood Culture - Preliminary Blood A&P Assessment and plan (1) Acute exacerbation of chronic obstructive pulmonary disease (COPD): (2) Pneumonia: (3) Anorexia: (4) Protein calorie malnutrition: (5) Muscle wasting: Plan Acute COPD exacerbation ? With evidence of pneumonia given productive cough, leukocytosis, ? With anorexia, protein calorie malnutrition, muscle wasting ? Plan, ? Monitor on MedSurFunderbeam, ? Patient could not tolerate a CT angiogram of the chest, because he cannot lie flat, will hold off for now order troponin 50, D-dimer 0.43, venous ultrasound bilateral extremities negative for DVT ? cardiac echo, within normal limits ? Continue on Rocephin, azithromycin, ? De-escalate to prednisone ? Duoneb ? Budesonide ? Monitor respiratory status closely ? Lovenox for DVT prophylaxis, ? Consult dietary, protein calorie malnutrition, physical deconditioning, anorexia ? General diet, ? CODE STATUS, patient does not want to be resuscitated, but is okay with elective intubation if required, but does not want to remain on life support indefinitely Attestations 2 Medical Necessity Statement*: Patient requires hospitalization for COPD exacerbation requiring antibiotic therapy, steroid therapy Diagnoses Acute exacerbation of chronic obstructive pulmonary disease (COPD) J44.1 Pneumonia J18.9 Anorexia R63.0 Protein calorie malnutrition E46 Muscle wasting M62.50
[2023-11-13] MEDS: azithromycin 250 mg Tablet PO (16:50)
[2023-11-13] MEDS: finasteride 5 mg Tablet PO (16:50)
[2023-11-13] MEDS: pantoprazole 40 mg SDV IVP (17:50)
[2023-11-13] MEDS: cefTRIAXone 1,000 MG in sodium chloride 0.9% (plus) 50 ML 100 MG IV (17:50)
[2023-11-14] VITALS (7 sets, daily range): BP systolic 102–106; BP diastolic 62–66; PULSE 71–85; RESP 16–18; TEMP 36.4–36.6; O2SAT 97–98
[2023-11-14 04:54] LABS: Basophils % 0.2 %; Eosinophils % 0.2 %; Hematocrit 30.2 % (37-53); Lymphocytes # 2.2 10^3/uL (0.8-4.8); Lymphocytes % 17.1 %; Mean Corpuscular HGB Conc 34.1 g/dL (30-55); Mean Corpuscular Hemoglobin 34.4 pg (27-33); Mean Platelet Volume 9.2 fL (7.4-10.4); Monocytes % 7.7 %; Neutrophils # 9.04 10^3/uL (1.8-7.7); Neutrophils % 70.5 %; Nucleated Red Blood Cells % 0 %; Platelet Count 326 10^3/cmm (157-399); Red Blood Count 2.99 10^6/uL (3.85-5.65); Red Cell Distribution Width 13.1 % (12.1-15.1); White Blood Count 12.83 10^3/uL (3.29-11.43)
[2023-11-14 05:12] LABS: Alanine Aminotransferase 43 U/L (0-41); Albumin Level 3.3 g/dL (3.5-5.2); Alkaline Phosphatase 45 U/L (40-130); Aspartate Amino Transferase 17 U/L (0-40); Blood Urea Nitrogen 20 mg/dL (8-23); Calcium 8.6 mg/dL (8.5-10.5); Carbon Dioxide 35 mmol/L (22-29); Chloride 98 mmol/L (98-107); Globulin 1.7 g/dL (1.3-4.6); Glucose 84 mg/dL (65-115); Magnesium 2.1 mg/dL (1.7-2.3); Osmolality Calculated 290 mOsm/kg (285-295); Phosphorus 3.5 mg/dL (2.5-4.5); Sodium 139 mmol/L (136-145); Total Bilirubin 0.3 mg/dL (0.15-1.2)
[2023-11-14] MEDS: budesonide 0.5 mg/2 mL Neb INHALATION (07:16)
[2023-11-14] MEDS: ipratropium-albuterol 3 mL Neb INHALATION ×2 (07:16→11:17)
[2023-11-14] MEDS: predniSONE 20 mg Tablet 40 MG PO (10:11)
--- NOTE | 2023-11-14 10:31 | PM.DCS ---
Discharge Providers Date of Admission: 11/08/23 15:35 Date of Discharge: November 14, 2023 Attending Provider at Admission: Salazar Bonilla MD Attending Provider at Discharge: Salazar Bonilla MD Primary Care Provider: ALESSANDRA Sofia Diagnoses at Discharge Discharge Diagnosis (1) Acute exacerbation of chronic obstructive pulmonary disease (COPD): Status: Acute (2) Pneumonia: Status: Acute (3) Anorexia: Status: Acute (4) Protein calorie malnutrition: Status: Acute (5) Muscle wasting: Status: Acute Reason for Visit Reason for Visit: Copd Exacerbation Hospital Course Hospital Course Flavio Villareal is a 73 year old male with a past medical history of COPD, active smoker, history of emphysema, who presents to [facility] due to shortness of breath, productive cough, fatigue, malaise. Patient tells me for the last few days he has been feeling increasingly short of breath, with a productive cough, no fevers, no chills, no hemoptysis, he does continue to smoke. He tells me that he is feeling short of breath with activities of daily living, he needs assistance with activities due to shortness of breath, no history of COVID, no recent travel, no calf pain no calf swelling, no hemoptysis This is a 73-year-old female who presents to [facility] for acute COPD exacerbation, with evidence of pneumonia, with anorexia, protein calorie malnutrition, muscle wasting, patient was treated with broad-spectrum antibiotic therapy, steroid therapy, nebulizer treatments, overall he had slow clinical progress and improvement. But overall clinically improved, discharged with a prednisone taper, nebulizer treatments, antibiotics with close follow-up with pulmonary as outpatient, patient was advised to stop smoking, I spent over 10 minutes discussing smoking cessation, I also did attempt to do a CT of the chest during his hospitalization given his weight loss, his anorexia, and his smoking history however patient cannot lie flat for any CT of the chest Physical Exam Const: COMMON NORMALS: no acute distress and patient oriented x3 Resp: COMMON NORMALS: normal respiratory effort, No retractions, No use of accessory muscles and clear to auscultation bilaterally AUSCULTATION: clear to auscultation bilaterally Cardio: COMMON NORMALS: regular rate, regular rhythm, S1 normal heart sound present and S2 normal heart sound present RATE: regular rate RHYTHM: regular rhythm HEART SOUNDS: S1 normal heart sound present and S2 normal heart sound present GI: COMMON NORMALS: Normal to inspection, nondistended, normoactive bowel sounds present and non-tender Extremity: COMMON NORMALS: no pedal edema Neuro: COMMON NORMALS: patient oriented x3 Psych: COMMON NORMALS: mental status grossly normal Discharge Data Studies Completed and Pending Completed Studies During Hospitalization Category Date Time Status XR chest 1V portable [id number] Stat Exams 11/08/23 10:38 [place] [id number] Routine Ultrasound 11/08/23 18:48 Completed CV. echo complete* [id number] Routine Ultrasound 11/08/23 18:48 Completed Pending at discharge Category Date Time Status Blood Cultures ([facility]) Routine Lab 11/08/23 20:36 Results Blood Cultures ([facility]) Routine Lab 11/08/23 20:42 Results Complete Blood Count w/Auto AM LABS Lab 11/15/23 04:00 Ordered Comprehensive Metabolic Panel AM LABS Lab 11/15/23 04:00 Ordered Magnesium AM LABS Lab 11/15/23 04:00 Ordered Occult Blood Stool [Immunochemical Fecal OCB] Routine Lab 11/11/23 08:56 Uncollected Phosphorus AM LABS Lab 11/15/23 04:00 Ordered Radiology Impressions Chest X-Ray 11/08/23 10:38 IMPRESSION: No acute cardiopulmonary disease. Laboratory Results WBC 12.83 10^3/uL (3.29-11.43) H 11/14/23 04:45 RBC 2.99 10^6/uL (3.85-5.65) L 11/14/23 04:45 Hgb 10.30 g/dL (11.27-16.99) L 11/14/23 04:45 Hct 30.2 % (37-53) L 11/14/23 04:45 MCV 101.0 fl (82-101) 11/14/23 04:45 MCH 34.4 pg (27-33) H 11/14/23 04:45 MCHC 34.1 g/dL (30-55) 11/14/23 04:45 RDW 13.1 % (12.1-15.1) 11/14/23 04:45 Plt Count 326 10^3/cmm (157-399) 11/14/23 04:45 MPV 9.2 fL (7.4-10.4) 11/14/23 04:45 Neut % (Auto) 70.5 % 11/14/23 04:45 Lymph % (Auto) 17.1 % 11/14/23 04:45 Elliott % (Auto) 7.7 % 11/14/23 04:45 Eos % (Auto) 0.2 % 11/14/23 04:45 Baso % (Auto) 0.2 % 11/14/23 04:45 Neut # (Auto) 9.04 10^3/uL (1.8-7.7) H 11/14/23 04:45 Lymph # (Auto) 2.2 10^3/uL (0.8-4.8) 11/14/23 04:45 Elliott # (Auto) 1.0 10^3/uL (0.2-0.9) H 11/14/23 04:45 Eos # (Auto) 0.0 10^3/uL (0.0-0.8) 11/14/23 04:45 Baso # (Auto) 0.0 10^3/uL (0.0-0.1) 11/14/23 04:45 Nucleated RBC % (auto) 0 % 11/14/23 04:45 Nucleated RBCs # 0.0 /100WBC 11/14/23 04:45 D-Dimer 0.43 ug/mLFEU (0-0.59) 11/08/23 18:55 Specimen Type Arterial 11/08/23 10:52 Sample Site Radial, right 11/08/23 10:52 ABG pH 7.41 (7.35-7.45) 11/08/23 10:52 ABG pCO2 46.9 mmHg (35-45) H 11/08/23 10:52 ABG pO2 73.6 mmHg (80.0-100.0) L 11/08/23 10:52 ABG HCO3 29.4 mmol/L (22-26) H 11/08/23 10:52 ABG O2 Saturation 96.0 11/08/23 10:52 ABG Base Excess 3.9 mmol/L (-2.0-2.0) H 11/08/23 10:52 Dale Test Pos 11/08/23 10:52 A-a O2 Gradient 2.6 mmHg (5-10) L 11/08/23 10:52 Hematocrit 37.0 % (42-52) L 11/08/23 10:52 Hgb O2 Saturation 93.3 % (95-100) L 11/08/23 10:52 Carboxyhemoglobin 2.1 %THgb (0.4-20.1) 11/08/23 10:52 Methemoglobin 0.7 % (0.4-1.5) 11/08/23 10:52 Total Hemoglobin 12.1 g/dL (14-18) L 11/08/23 10:52 Sodium 138.0 mmol/L (131-143) 11/08/23 10:52 Potassium 4.1 mmol/L (3.5-5.0) 11/08/23 10:52 Glucose 158.0 mg/dL (70-115) H 11/08/23 10:52 Ionized Calcium 1.2 mmol/L (1.1-1.4) 11/08/23 10:52 O2 Delivery Device Nc 11/08/23 10:52 O2 Liters/Min 3.0 % 11/08/23 10:52 Traffic Superintendent ID [place] 11/08/23 10:52 Sodium 139 mmol/L (136-145) 11/14/23 04:45 Potassium 4.0 mmol/L (3.5-5.1) 11/14/23 04:45 Chloride 98 mmol/L (98-107) 11/14/23 04:45 Carbon Dioxide 35 mmol/L (22-29) H 11/14/23 04:45 Anion Gap 10.0 (5-19) 11/14/23 04:45 BUN 20 mg/dL (8-23) 11/14/23 04:45 Creatinine 0.4 mg/dL (0.7-1.2) L 11/14/23 04:45 GFR Calculation Not Reportable 11/14/23 04:45 Glucose 84 mg/dL (65-115) 11/14/23 04:45 Estimat Average Glucose 97 11/08/23 18:55 Hemoglobin A1c 5.0 % (4.0-6.0) 11/08/23 18:55 Calculated Osmolality 290 mOsm/kg (285-295) 11/14/23 04:45 Lactate 1.8 mmol/L (0.5-2.2) 11/08/23 18:55 Calcium 8.6 mg/dL (8.5-10.5) 11/14/23 04:45 Phosphorus 3.5 mg/dL (2.5-4.5) 11/14/23 04:45 Magnesium 2.1 mg/dL (1.7-2.3) 11/14/23 04:45 Iron 106 ug/dL (59-158) 11/11/23 04:50 Ferritin 1451 ng/mL (30-400) H 11/11/23 04:50 Total Bilirubin 0.3 mg/dL (0.15-1.2) 11/14/23 04:45 AST 17 U/L (0-40) 11/14/23 04:45 ALT 43 U/L (0-41) H 11/14/23 04:45 Alkaline Phosphatase 45 U/L (40-130) 11/14/23 04:45 Troponin T Baseline 50 ng/L (0-15) H 11/08/23 17:10 Troponin T 120 Minute 45.32 ng/L (0-15) H 11/08/23 18:55 Delta Troponin T -4.68 ABS# (0-10) L 11/08/23 18:55 Troponin T Hi Sens 6Hr 42.74 ng/L (0-15) H 11/09/23 02:29 Troponin T Hi Sens 6Hr Delta -7.26 ng/L (0-12) L 11/09/23 02:29 C-Reactive Protein 116.8 mg/L (0.0-4.9) H 11/08/23 18:55 NT-Pro-B Natriuret Pep 385 pg/mL (0-125) H 11/08/23 18:55 Total Protein 5.0 g/dL (6.6-8.7) L 11/14/23 04:45 Albumin 3.3 g/dL (3.5-5.2) L 11/14/23 04:45 Globulin 1.7 g/dL (1.3-4.6) 11/14/23 04:45 Triglycerides 44 mg/dL (0-150) 11/08/23 18:55 Cholesterol 113 mg/dL (0-200) 11/08/23 18:55 LDL Cholesterol, Calc 36 mg/dL (50-129) L 11/08/23 18:55 HDL Cholesterol 68 mg/dL (60-100) 11/08/23 18:55 LDL/HDL Ratio 0.53 RATIO (0.00-3.22) 11/08/23 18:55 Cholesterol/HDL Ratio 1.66 mg/dL (1.0-5.00) 11/08/23 18:55 Procalcitonin 0.23 ng/mL (0-0.5) 11/08/23 17:10 TSH 0.71 uIU/mL (0.27-4.20) 11/08/23 18:55 Urine Color Dark yellow (Yellow) 11/08/23 23: Urine Appearance Slightly cloudy (CLEAR) A 11/08/23 23: Urine pH 5 (5-7) 11/08/23 23: Ur Specific Alpine 1.030 (1.005-1.030) 11/08/23 23: Urine Protein Trace (Negative) 11/08/23: Urine Glucose (UA) Norm (Normal) 11/08/23 23: Urine Ketones 1+ (Negative) H 11/08/23: Urine Blood 2+ (Negative) H 11/08/23 23: Urine Nitrate Negative (Negative) 11/08/23 23: Urine Bilirubin Neg (Negative) 11/08/23 23: Urine Urobilinogen Neg mg/dL (Negative) 11/08/23 23: Ur Leukocyte Esterase Negative (Negative) 11/08/23 23:25 Urine RBC None /hpf (0-2) 11/08/23 23:25 Urine WBC None /hpf (0-5) 11/08/23 23:25 Ur Squamous Epith Cells 0-4 /hpf (0-5) H 11/08/23 23:25 Amorphous Sediment 2+ /hpf 11/08/23 23:25 Urine Bacteria 1+ /hpf (NONE) H 11/08/23 23:25 Nasal Influ A H1 2009 PCR Not detected (NOT DETECT) 11/08/23 23: Adenovirus (PCR) Not detected (NOT DETECT) 11/08/23 23: C. pneumoniae DNA (PCR) Not detected (NOT DETECT) 11/08/23 23: Coronavirus 229E (PCR) Not detected (NOT DETECT) 11/08/23 23: Human Metapneumovir PCR Not detected (NOT DETECT) 11/08/23 23:25 Influenza A (H1) PCR Not detected (NOT DETECT) 11/08/23 23:25 Influenza A (H3) PCR Not detected (NOT DETECT) 11/08/23 23:25 Influenza Type A (PCR) Not detected (NOT DETECT) 11/08/23 23:25 Influenza Type B (PCR) Not detected (NOT DETECT) 11/08/23 23:25 M. pneumoniae (PCR) Not detected (NOT DETECT) 11/08/23 23:25 Parainfluenza 1 (PCR) Not detected (NOT DETECT) 11/08/23 23:25 Parainfluenza 2 (PCR) Not detected (NOT DETECT) 11/08/23 23:25 Parainfluenza 3 (PCR) Not detected (NOT DETECT) 11/08/23 23:25 Parainfluenza 4 (PCR) Not detected (NOT DETECT) 11/08/23 23:25 RSV Type A (PCR) Not detected (NOT DETECT) 11/08/23 23:25 RSV Type B (PCR) Not detected (NOT DETECT) 11/08/23 23:25 Entero/Rhino (PCR) Not detected (NOT DETECT) 11/08/23 23:25 SARS-CoV-2 (PCR) Not detected (NOT DETECT) 11/08/23 23:25 Vitals Last Vital Signs Temp 97.7 F 11/14/23 07:10 Pulse 74 11/14/23 07:16 Resp 16 11/14/23 07:16 BP 105/64 11/14/23 07:10 Pulse Ox 98 11/14/23 07:16 O2 Del Method Nasal Cannula 11/14/23 07:16 O2 Flow Rate 2 11/14/23 07:16 Discharge Plan Discharge Patient Disposition: Home Condition: Stable Prescriptions: New prednisone 10 mg tablet See Rx Instructions .ROUTE .COMPLEX Qty: 53 0RF Rx Instructions: 4 tabs a day for 5 days, 3 tabs a day for 5 days, 2 tabs a day for 5 days, 1 tab a day for 5 days doxycycline hyclate 100 mg tablet 100 mg PO BID 5 Days Qty: 10 0RF Continued finasteride 5 mg tablet 5 mg PO QPM albuterol sulfate [Ventolin HFA] 90 mcg/actuation HFA aerosol inhaler 2 puff inhalation Q4H PRN (Reason: shortness of breath or wheezing) Qty: 8.5 3RF budesonide-formoterol [Symbicort] 160-4.5 mcg/actuation HFA aerosol inhaler 1 puff INHALATION BID Qty: 10.2 0RF Changed ipratropium-albuterol 0.5 mg-3 mg(2.5 mg base)/3 mL solution for nebulization 3 ml inhalation QID PRN (Reason: Shortness Of Breath) Qty: 90 0RF montelukast 10 mg tablet 10 mg PO QPM 30 Days Qty: 30 0RF Held prednisone 5 mg tablet 5 mg PO QPM Hold Instructions: Resume on 12/03/23. start after prednisone taper has finished Discharge Orders: Discharge Order (Routine); Ordered 11/14/23 Ordered By: Salazar Bonilla Referrals: RiccorReji MD [Physician] - 1 week Reena Cotter FNP [Primary Care Provider] - Discharge Diet: Regular Discharge Activity: Resume usual activity Patient Instructions: Opioid Safety Activity Restrictions/Additional Instructions: - Please stop smoking ? See primary care provider 1 week, -See pulmonary in 1 week Discharge Attestations Time Spent in Discharge Care*: greater than 30 min Quality Metrics Clinical Quality Measures [ No reported AMI, CVA or VTE this stay] Coding Level of Care Code 57422 Total time (in minutes) for Discharge: 45 Diagnoses Acute exacerbation of chronic obstructive pulmonary disease (COPD) J44.1 Pneumonia J18.9 Anorexia R63.0 Protein calorie malnutrition E46 Muscle wasting M62.50
--- NOTE | 2023-11-14 12:16 | PC.SOCIAL ---
IMM Update Updated pt on IMM. No questions voiced. Provided pt a copy. Initialed, dated, & timed copy in chart.
== END 2023-11-14 16:00 | disposition home or self-care (01) | DRG 194 ==
LOC: ER 11:38 → MEDSURG 16:43
PROVIDERS: Admitting Provider Family Medicine; Emergency Provider Family Medicine; PCP Nurse Practitioner Family; Visit Provider Family Medicine
DX: J18.9 Pneumonia, unspecified organism (principal); E46 Unspecified protein-calorie malnutrition; J96.11 Chronic respiratory failure with hypoxia; J43.9 Emphysema, unspecified; F17.210 Nicotine dependence, cigarettes, uncomplicated; E03.9 Hypothyroidism, unspecified; N40.0 Benign prostatic hyperplasia without lower urinary tract symptoms; R97.20 Elevated prostate specific antigen [PSA]; Z68.1 Body mass index [BMI] 19.9 or less, adult; Z99.81 Dependence on supplemental oxygen; Z11.52 Encounter for screening for COVID-19
CPT/HCPCS: 36415; 36600; 71045; 80048; 80051; 80053; 80061; 81001; 81003; 82330; 82728; 82805; 83036; 83540; 83605; 83735; 83880; 84100; 84145; 84443; 84484; 85025; 85378; 86140; 87040; 87486; 87581; 87633; 93005; 93306; 93970; 94640; 94664; 96372; 99285; C9113; J0456; J0696; J1650; J2920; J7030; J7050; J7512; J7626; Q0144